=== PATIENT | female | born 1970 | race African-American/Black ===

== ENCOUNTER → 2016-08-16 | Outpatient (CLI) | payer OTHER ==
[~2016-08-16] VITALS: Ht 154.9 cm; Wt 86.2 kg
[~2016-08-16] MED LIST: B12INJ SUBQ; CALCIUM + D SO1 EACH PO; DEXAMETHAS IV; HYDROCODON-ACE1 EAC8 PO; LEXAPRO20 MG PO; MEDROL DOSPAK21 TAB PO; METOPROLOL TART25 MG PO; MULTIVITAMINS1 EAC7 PO; NEURONTIN 400400 M1 PO; NORCO 5-325 TA1 EACH PO; OMEPRAZOLE 20 M20 MG PO; OXYCODONE HCL 55 MG PO; PREDNISONE50 MG PO; PROTONIX40 M2 PO; RANITIDINE 150150 MG PO; TOPAMAX 25 MG T25 M1 PO; VENOFER100 MG/51 IV; WELLBUTRIN SR150 M1 PO; ZANTAC 150MG T150 MG PO; ZOFRAN ODT4 MG PO
--- NOTE | ~2016-08-16 | HPC ---
[facility] [place] [address] PAIN MANAGEMENT CONSULTATION Name: SHANON TURNER Room #: REG ESTHER Francesca.#: [id number] Admission: 08/16/16 Attend Phys: Willy Whatley MD Discharge: Date of : 72 Report #: [id number] THIS REPORT FOR: //name// CC: SARAH Whatley DATE OF SERVICE: 08/16/2016 PRIMARY CARE PHYSICIAN: Sarah Whatley M.D. CHIEF COMPLAINT: Pain in the right hip, low back and right leg. HISTORY OF PRESENT ILLNESS: The patient is a 46-year-old female who has been referred to the pain clinic for evaluation and treatment. The patient states that she has had some problems with her back and leg for a number of years. She has undergone epidural steroid injections. She is having some problems since her recently stroke in June. She states that she had a TIA. She states that there was a clot, but she is not sure where it was from. She states that it was not from her heart as she standard it but may have come from her neck. She continues to have some difficulty with her right side. She has difficulty with speech and stutters somewhat. She has been undergoing rehab and things have been going reasonably well at this juncture. She would like to transfer her care to [facility] because of its convenience. It is closer to where she lives. Her problems have been present since about 2012. Pain, which she has been experiencing is aching, constant and radiates down into her leg. She notes that the pain is worse with prolonged standing. She notes the pain improves when she is lying down and is sitting up. She describes it as continuous, steady, constant, cramping, aching and rates it as a 7/7. PAST MEDICAL HISTORY: DVT, peptic ulcer disease, anemia secondary to B12 deficiency, headaches, depression, anxiety and history of ulcers. ALLERGIES: No known drug allergies. CURRENT MEDICATIONS: Vitamin B12, iron infusions, prednisone, Lexapro 20 mg daily, ranitidine 150 mg daily, omeprazole 20 mg, Wellbutrin 150 mg, OxyIR 5 mg b.i.d. as needed, calcium pills, multivitamins and vitamin B12 1000 mcg subcutaneously monthly. PAST SURGICAL HISTORY: She has had a Shlomo-en-Y gastric bypass and cholecystectomy. SOCIAL HISTORY: She is retired from the [employer], has not worked since June 2013. [address] [address] PAIN MANAGEMENT CONSULTATION Name: SHANON TURNER Room #: REG CLI Francesca.#: [id number] Admission: 08/16/16 Attend Phys: Willy Whatley MD Discharge: Date of : 72 Report #: [id number] REVIEW OF SYSTEMS: Fourteen-point review of systems questionnaire indicates weight change. The patient states she will also over 100 pounds after her initial gastric bypass She has gained some weight and is following up with her surgeon to continue to evaluate her gastrointestinal problems. Wears glasses. Peptic ulcer, duodenal problems in the past. Headaches, fatigue, lightheadedness, dizziness, numbness and tingling sensation with some weakness on the right side in the lower extremity. Notes pain and discomfort into the groin area and outer portion of her right hip, status post transient ischemic attack with some neurological deficits. Continues to stutter status post stroke. LABORATORY DATA: L-spine dated 2013 reveals: 1. Normal lumbar alignment. The vertebral body heights are maintained. There is a normal marrow signal. The conus is normal in position and appearance at the L2-L3 level. 2. Degenerative disk disease with loss of disk space height at L5/L4. 3. Thin area of increased signal intensity at the left lateral aspect of the disk of L5-S1 consistent with a small annular tear. 4. Mild encroachment on the neural foramen. Impression, mild degenerative disk disease at L4-L5 with mild left neural foraminal stenosis. PHYSICAL EXAMINATION: VITAL SIGNS: Blood pressure 125/83, pulse 92, respiratory rate 18 and room air saturation 99%. MUSCULOSKELETAL: The patient has pain and discomfort involving her right leg. She complains of pain and discomfort in the left lateral aspect of her leg at the area of the greater trochanter. She also has pain that radiates from her hip into the right groin area. She walks with an antalgic gait. She rates her pain as a 7/10. Notes increased pain with standing and with ambulation. IMPRESSION: 1. Lumbar radicular pain, possibly right hip pathology. 2. Chronic history of low back pain treated with epidural steroid injections in the past. 3. Depression. 4. History of gastrointestinal problems, has undergone a Shlomo-en-Y and found to have some ulcers in the past. 5. 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 RECOMMENDATIONS: We discussed treatment options with the patient. At this juncture, she would like to follow up with her pain physician at [facility]. She states she underwent an MRI of her back. She is going to follow up with him and note the results. She states that she has medication for this [facility] [address] [place] [address] PAIN MANAGEMENT CONSULTATION Name: SHANON TURNER Room #: REG CLShira Ma.#: [id number] Admission: 08/16/16 Attend Phys: Willy Whatley MD Discharge: Date of : 72 Report #: [id number] month. She will follow up in the pain clinic in the next month. We would like to thank you for letting us participate in her care. We hope she continues to improve. <ELECTRONICALLY SIGNED> By: Willy Whatley MD 08/27/16 1018 [id number] Willy Whatley MD /nt
[2016-08-16 13:06] VITALS: BP 125/83
== END | disposition home or self-care (01) ==
LOC: PAIN 07:03
DX: M51.36 Other intervertebral disc degeneration, lumbar region (principal); M48.06 Spinal stenosis, lumbar region; F32.9 Major depressive disorder, single episode, unspecified; G45.8 Other transient cerebral ischemic attacks and related syndromes; I82.409 Acute embolism and thrombosis of unspecified deep veins of unspecified lower extremity; K27.9 Peptic ulcer, site unspecified, unspecified as acute or chronic, without hemorrhage or perforation; D64.89 Other specified anemias; F41.9 Anxiety disorder, unspecified; Z90.49 Acquired absence of other specified parts of digestive tract; Z87.891 Personal history of nicotine dependence

== ENCOUNTER → 2016-10-09 | Outpatient (CLI) | payer OTHER ==
[~2016-10-09] VITALS: Ht 154.9 cm; Wt 93.9 kg
--- NOTE | ~2016-10-09 | HPC ---
[facility] [place] [address] PAIN MANAGEMENT CONSULTATION Name: SHANON TURNER Room #: REG ESTHER Francesca.#: [id number] Admission: 10/09/16 Attend Phys: Willy Whatley MD Discharge: Date of : 72 Report #: [id number] THIS REPORT FOR: //name// CC: JOSSY Whatley DATE OF SERVICE: 10/09/2016 FOLLOWUP COMPLAINT: Here for medication renewal and the pain medicine is helping. FOLLOWUP HISTORY: The patient is a 46-year-old female who has been followed in the pain clinic because of pain and discomfort in the lumbar area. She has pain involving the low back after a fall in the tub. She is unable to take nonsteroidal anti-inflammatory medications because of Shlomo-en-Y surgery and a history of ulcers. She also has stuttering of her speech. She has had this since the stroke. She feels that things are improving at this juncture. Overall, she feels that her situation is improving. She would like to continue with the medications. PHYSICAL EXAMINATION: Blood pressure 146/97, pulse 83, respiratory rate 16, room air saturation 98%. Height 5 feet 1 inch, weight 94 kilograms, BMI is 39.10. She continues to have some stuttering of her speech. This has improved since we saw her last. She does have some continued weakness on her right side in the arm as well as in the right leg. IMPRESSION: 1. Lumbar pain status post fall from bathtub. 2. Depression. 3. Gastroesophageal problems and inability to take nonsteroidal anti-inflammatory medications because of easy Shlomo-en-Y surgery with history of ulcers. 4. Transient ischemic attack with improvement in stuttering. RECOMMENDATION: We discussed treatment options with the patient. We will continue with her hydrocodone medication. The script has been written for this medication. She will call us if she has any problems with her medications. We would like to thank you for letting us participate in her care. We hope she continues to improve. By: [id number] Willy Whatley MD /nt
[2016-10-09 10:44] VITALS: BP 146/97
== END ==
LOC: PAIN 07:04
DX: M54.5 Low back pain (principal); M25.561 Pain in right knee; F32.9 Major depressive disorder, single episode, unspecified; I10 Essential (primary) hypertension; Z87.891 Personal history of nicotine dependence; Z86.73 Personal history of transient ischemic attack (TIA), and cerebral infarction without residual deficits; Z98.84 Bariatric surgery status

== ENCOUNTER → 2016-11-06 | Outpatient (CLI) | payer OTHER ==
[~2016-11-06] VITALS: Ht 154.9 cm; Wt 95.7 kg
--- NOTE | ~2016-11-06 | HPC ---
[facility] [address] [place] [address] PAIN MANAGEMENT CONSULTATION Name: SHANON TURNER Room #: REG ESTHER Ma.#: [id number] Admission: 11/06/16 Attend Phys: Willy Whatley MD Discharge: Date of : 72 Report #: [id number] THIS REPORT FOR: //name// CC: JOSSY Whatley DATE OF SERVICE: 11/06/2016 FOLLOWUP COMPLAINT: Here for medications and things are getting a little better slowly. FOLLOWUP HISTORY: The patient is a 46-year-old female who has been seen in the pain clinic because of lumbar pain and discomfort in the low back and right leg. As you recall, the patient suffered a stroke a few months ago. This was June 2016. Overall, she feels that things were slowly turning around. She is noting a slow improvement in her speech. She is noticing a slow improvement in her right eye, lateral field. PHYSICAL EXAMINATION: Blood pressure is 144/91, pulse 81, respiratory rate 20, room air saturations 100%. She continues to note some weakness in her right side. She noticed some improvement in her right lateral visual field. IMPRESSION: 1. Status post cerebrovascular incident in June 2016. 2. Lumbar pain status post fall in the bed. The patient is now wearing a bicycle type helmet when in the bathroom. We discussed this being helpful in the event that she were to slip, fall and have another accident. She felt that was a good idea and continues to use it. 3. Depression, stable. 4. Gastroesophageal reflux and inability to take nonsteroidal anti-inflammatory medications secondary to a Shlomo-en-Y surgery in the past and history of ulcers. 5. Transient ischemic attack/stuttering since the cerebrovascular accident. RECOMMENDATIONS: We will continue with her current medical regimen of OxyIR 5 mg 1 p.o. b.i.d. She will call us if she has any problems with her medications. We would like to thank you for letting us participate in her care. We hope she continues to improve. By: [id number] Willy Whatley MD /nt
[2016-11-06 10:26] VITALS: BP 144/91
== END ==
LOC: PAIN 06:54
DX: M54.16 Radiculopathy, lumbar region (principal); K21.9 Gastro-esophageal reflux disease without esophagitis; Z86.73 Personal history of transient ischemic attack (TIA), and cerebral infarction without residual deficits; F32.9 Major depressive disorder, single episode, unspecified; I10 Essential (primary) hypertension; Z87.891 Personal history of nicotine dependence

== ENCOUNTER → 2016-12-04 | Outpatient (CLI) | payer OTHER ==
[~2016-12-04] VITALS: Ht 154.9 cm; Wt 96.2 kg
[~2016-12-04] MED LIST changes: +FLEXERIL PO
[2016-12-04 10:32] VITALS: BP 137/100
== END ==
LOC: PAIN 07:09
DX: G89.29 Other chronic pain (principal); M79.604 Pain in right leg; M54.5 Low back pain; Z86.73 Personal history of transient ischemic attack (TIA), and cerebral infarction without residual deficits; Z87.891 Personal history of nicotine dependence

== ENCOUNTER → 2017-01-01 | Outpatient (CLI) | payer OTHER ==
[~2017-01-01] VITALS: Ht 154.9 cm; Wt 99.3 kg
--- NOTE | ~2017-01-01 | HPC ---
[facility] [place] [address] PAIN MANAGEMENT CONSULTATION Name: SHANON TURNER Room #: REG ESTHER UreñaJenniferAndrey.#: [id number] Admission: 01/01/17 Attend Phys: Willy Whatley MD Discharge: Date of : 72 Report #: [id number] THIS REPORT FOR: //name// CC: JOSSY Whatley DATE OF SERVICE: 01/01/2017 FOLLOWUP COMPLAINT: Here for medications. FOLLOWUP HISTORY: The patient is a 46-year-old female who has been followed in the pain clinic. As you recall, she continues to have back pain and pain involving her right leg. She suffered a stroke a number of months ago. This was in 06/2016. She feels that things have continued to improve. Her speech is slowly improving as well. She has returned today for renewal of her hydrocodone. She finds that this medication is efficacious and she is able to engage in activities with less discomfort. She feels that the Flexeril is beneficial. She feels that 10 mg b.i.d. is somewhat helpful, but not as helpful as she would like. She was wondering if we could increase her medication. PHYSICAL EXAMINATION: The patient is alert. No evidence of oversedation. Her speech appears to be less problematic. She has less stuttering today as compared to in the past. IMPRESSION: 1. Status post cerebrovascular accident in 06/2016 with stuttering. 2. Lumbar pain status post fall. As you recall, she fell in the bathroom about a month ago. She was wearing a helmet. She has not had any falls since we saw her last. 3. Depression/stable. 4. Gastroesophageal reflux and inability to take nonsteroidal anti-inflammatory medication secondary to Shlomo-en-Y surgery in the past and history of ulcers. 5. Transichemic attack with stuttering, improving after the cerebrovascular accident. RECOMMENDATIONS: We will continue with her current medication of OxyIR 5 mg 1 p.o. b.i.d. The patient will increase her Flexeril from 10 mg b.i.d. to 10 mg t.i.d. She will call us if she has any problems with her medications. We would like to thank you for letting us participate in her care. We hope she continues to improve. <ELECTRONICALLY SIGNED> By: Willy Whatley MD 01/02/17 0820 [id number] [id number] Willy Whatley MD /nt
[2017-01-01 09:55] VITALS: BP 140/104
== END | disposition home or self-care (01) ==
LOC: PAIN 06:45
DX: M54.16 Radiculopathy, lumbar region (principal); F32.9 Major depressive disorder, single episode, unspecified; K21.9 Gastro-esophageal reflux disease without esophagitis; G45.9 Transient cerebral ischemic attack, unspecified; Z87.891 Personal history of nicotine dependence

== ENCOUNTER → 2017-01-29 | Outpatient (CLI) | payer OTHER ==
[~2017-01-29] VITALS: Ht 154.9 cm; Wt 97.2 kg
[2017-01-29 10:38] VITALS: BP 145/95
== END | disposition home or self-care (01) ==
LOC: PAIN 07:24
DX: M54.16 Radiculopathy, lumbar region (principal); F32.9 Major depressive disorder, single episode, unspecified; K21.9 Gastro-esophageal reflux disease without esophagitis; Z86.73 Personal history of transient ischemic attack (TIA), and cerebral infarction without residual deficits; Z87.891 Personal history of nicotine dependence

== ENCOUNTER → 2017-03-05 | Outpatient (CLI) | payer OTHER ==
[~2017-03-05] VITALS: Ht 154.9 cm; Wt 98.4 kg
--- NOTE | ~2017-03-05 | HPC ---
[facility] [place] [address] PAIN MANAGEMENT CONSULTATION Name: SHANON TURNER Room #: REG ESTHER Francesca.#: [id number] Admission: 03/05/17 Attend Phys: Willy Whatley MD Discharge: Date of : 72 Report #: [id number] THIS REPORT FOR: //name// CC: JOSSY Whatley DATE OF SERVICE: 03/05/2017 FOLLOWUP COMPLAINT: "Things are going reasonably well, I see my oncologist today." FOLLOWUP HISTORY: The patient is a 46-year-old female who has been seen in the pain clinic because of pain involving the right leg. As you recall, she suffered a stroke a number of months ago. She continues to improve. She also has a history of anemia. She is being seen by her oncologist for workup. She feels that her medications are working reasonably well and would like to continue them. She is having no problems with medications. PHYSICAL EXAMINATION: The patient is alert. Does not appear oversedated. Her speech pattern appears to be improving. Less stuttering is noted today. IMPRESSION: 1. Status post cerebrovascular accident in June 2016 with stuttering-improving. 2. Lumbar pain, status post fall in the bathroom. 3. Depression stable. 4. Gastroesophageal reflux with the inability to take nonsteroidal anti-inflammatory medications secondary to history of ulcers. 5. Transient ischemic attack, none since June 2016. RECOMMENDATIONS: We will continue with her current OxyIR 1 p.o. b.i.d. 5 mg tablet and Flexeril 10 mg t.i.d. We would like to thank you for letting us participate in her care. We hope she continues to improve. By: [id number] Willy Whatley MD /nt
[2017-03-05 10:11] VITALS: BP 136/91
== END ==
LOC: PAIN 07:14
DX: K21.9 Gastro-esophageal reflux disease without esophagitis (principal); G45.9 Transient cerebral ischemic attack, unspecified; M54.5 Low back pain

== ENCOUNTER → 2017-04-02 | Outpatient (CLI) | payer OTHER ==
[~2017-04-02] VITALS: Ht 162.6 cm; Wt 97.5 kg
--- NOTE | ~2017-04-02 | HPC ---
[facility] [address] [place] [address] PAIN MANAGEMENT CONSULTATION Name: SHANON TURNER Room #: REG ESTHER UreñaJenniferAndrey.#: [id number] Admission: 04/02/17 Attend Phys: Willy Whatley MD Discharge: Date of : 72 Report #: [id number] THIS REPORT FOR: //name// CC: JOSSY Whatley DATE OF SERVICE: 04/02/2017 FOLLOWUP COMPLAINT: Things are slowly improving. FOLLOWUP HISTORY: The patient is a 46-year-old female who has been seen in the pain clinic because of pain in her low back as well as right leg pain and knee pain. As you recall, she suffered a stroke. She is still having some difficulty with speech. She notes starting at this juncture, it was not present prior to the sterile. She continues to follow up with her oncologist. She would like to continue with her medications. She feels that they are efficacious and allow her to engage in activities of daily living, she would have difficulty without their use. PHYSICAL EXAMINATION: Blood pressure is 136/92, pulse 114, respiratory rate 16, room air saturation 98, height 5 feet 4 inches, weight 215 pounds, BMI is 36. The patient has pain and discomfort in the low back area. IMPRESSION: 1. Depression - stable. 2. Gastroesophageal reflux with inability to take nonsteroidal anti-inflammatory medication secondary to ulcer history. 3. Transient ischemic attack, 06/2016 - improving. RECOMMENDATIONS: We will continue with her current use of OxyIR p.o. b.i.d. 5 mg tablet, Flexeril 10 mg p.o. t.i.d. The patient will call us if she has any problems with her medications. We would like to thank you for letting us participate in her care. She will use Cyclobenzaprine 10 mg 1 p.o. t.i.d. as well. By: [id number] Willy Whatley MD /BLAINE
[2017-04-02 08:29] VITALS: BP 136/92
== END | disposition home or self-care (01) ==
LOC: PAIN 06:54
DX: M54.5 Low back pain (principal); M25.561 Pain in right knee; M79.604 Pain in right leg; Z68.36 Body mass index [BMI] 36.0-36.9, adult; F32.9 Major depressive disorder, single episode, unspecified; K21.9 Gastro-esophageal reflux disease without esophagitis; Z86.73 Personal history of transient ischemic attack (TIA), and cerebral infarction without residual deficits; Z87.891 Personal history of nicotine dependence

== ENCOUNTER → 2017-08-20 | Outpatient (CLI) | payer OTHER ==
[~2017-08-20] VITALS: Ht 154.9 cm; Wt 100.2 kg
[~2017-08-20] MED LIST changes: +AMLODIPINE BESYL5 M1 PO; +CARVEDILOL12.5 MG PO; +CLONAZEPAM 0.50.5 M1 PO; +CYCLOBENZAPRINE10 MG PO; +DUONEB 2.5-0.5 M3 ML INH; +NEBULIZER MISCELL; +PROTONIX40 M1 PO
--- NOTE | ~2017-08-20 | HPC ---
[facility] [place] [address] PAIN MANAGEMENT CONSULTATION Name: SHANON TURNER MISAEL Room #: REG Shira M.Andrey.#: [id number] Admission: 08/20/17 Attend Phys: Willy Whatley MD Discharge: Date of : 72 Report #: [id number] THIS REPORT FOR: //name// CC: JOSSY Whatley DATE OF SERVICE: 08/20/2017 FOLLOWUP COMPLAINT: "Here for medications. I have noted more pain because of the cold weather." FOLLOWUP HISTORY: The patient is a 47-year-old female who has been followed in the pain clinic. As you recall, she suffers from symptoms of stroke. She had transient ischemic attack. She continues to work to improve her speech. As you recall, she has some difficulty with stuttering. She has noticed that this problem has somewhat waxed and waned. She has also continued to follow up with her doctor secondary to her pernicious anemia. She has been told that she has some problems with her hip. She has noticed increased pain and discomfort and is being seen in the sports medicine area for this problem. She feels that her use of oxycodone and cyclobenzaprine are important. She is aware of the problems with opioid medications. She has watched the news and knows that opioid medications can cause problems with addiction as well as tolerance. She would like to have her medications renewed. She is rating her pain as a 7-8 at this juncture. The weather has been quite cold and down the single digits. She has noted that has made her pain somewhat more problematic at this juncture. It involves her left hip. She also has some right leg pain and low back discomfort as well. Standing, cold, weather stairs, driving, and sitting can exacerbate her discomfort. Notes that her pain feels more controlled when she takes her medications as well as when she is relaxing. She keeps her medications in a controlled environment. ALLERGIES: CODEINE AND IRON HAVE BEEN PROBLEMATIC IN THE PAST. CURRENT MEDICATIONS REVIEW: Indicates OxyIR 5 mg 1 p.o. b.i.d., Flexeril 10 mg t.i.d., Coreg 12.5 mg daily, gabapentin 400 mg t.i.d., Lexapro 20 mg total of 40 mg daily, omeprazole 20 mg b.i.d., Wellbutrin 150 mg daily, multivitamin, and vitamin B12. PHYSICAL EXAMINATION: VITAL SIGNS: Height 5 feet 1 inch, weight 221 pounds, BMI is 41. Blood pressure 128/80, pulse 99, respiratory rate 20, room air saturation 98%. GENERAL: The patient is a well-developed female slightly obese with no new evidence of trauma. Appearance, appears appropriate than stated age. Orientation: The patient is alert and oriented x 3. Affect appears appropriate. [address] [address] PAIN MANAGEMENT CONSULTATION Name: SHANON TURNER MISAEL Room #: REG [facility].#: [id number] Admission: 08/20/17 Attend Phys: Willy Whatley MD Discharge: Date of : 72 Report #: [id number] HEENT: Speech: The patient has a little slowness of speech and some slight stuttering on occasion. Head is atraumatic. Extraocular eye muscles intact. Hearing is good and within normal limits. Nasal area without drainage. Buccal membrane moist. NECK: Without adenopathy or bruits. LUNGS: Clear to auscultation. HEART: Regular rate. ABDOMEN: Soft, nontender muscles. MUSCULOSKELETAL: Appears with normal alignment without scoliosis, kyphosis or lordosis. The patient complains of pain and discomfort involving the right leg, right hip, low back, and left hip. She noted increased discomfort with internal rotation, external rotation, and movement of her right hip through its range of motion. PAIN CLINIC ASSESSMENT: 1. History of osteoarthritis involving the right hip. 2. Pain intensity 78. 3. Fall risk. The patient does not need assistance with walking. She has not fallen in the last 3 months. 4. The patient has not on blood thinners. 5. History of hypertension. The patient is being treated for hypertension. 6. Opioid therapy greater than 6 weeks. The patient has a signed contract. 7. Risk assessment tool. 8. Functional assessment tool. 9. Drug use: The patient does not use drugs. The patient does not smoke tobacco. She does not drink alcoholic beverages. IMPRESSION: 1. Depression. 2. Status post cerebrovascular accident with transient ischemic attack. 3. Gastroesophageal reflux. 4. Chronic pernicious anemia. 5. Right hip pain. RECOMMENDATIONS: We discussed treatment options with the patient. At this juncture, we will continue with her current medical regimen of Flexeril and oxycodone. The patient will continue with her medications. She will call us if she has any problems with her medications. We have prescribed medication for the next 2 months. She will call us if she has any problems with her medications. Hopefully, she will continue to improve and note improvements in her speech. <ELECTRONICALLY SIGNED> By: Willy Whatley MD 08/27/17 1007 [id number] Willy Whatley MD /PMT
[2017-08-20 09:11] VITALS: BP 128/80
== END ==
LOC: PAIN 06:42
DX: D51.0 Vitamin B12 deficiency anemia due to intrinsic factor deficiency (principal); K21.9 Gastro-esophageal reflux disease without esophagitis; M25.551 Pain in right hip; F32.9 Major depressive disorder, single episode, unspecified; Z86.73 Personal history of transient ischemic attack (TIA), and cerebral infarction without residual deficits

== ENCOUNTER → 2017-09-17 | Outpatient (CLI) | payer OTHER ==
[~2017-09-17] VITALS: Ht 154.9 cm; Wt 97.1 kg
--- NOTE | ~2017-09-17 | HPC ---
[facility] [address] [address] PAIN MANAGEMENT CONSULTATION Name: SHANON TURNER Room #: REG Shira MFranco.#: [id number] Admission: 09/17/17 Attend Phys: Willy Whatley MD Discharge: Date of : 72 Report #: [id number] THIS REPORT FOR: //name// CC: JOSSY Bond MD DATE OF SERVICE: 09/17/2017 FOLLOWUP COMPLAINT: Here for medications and things are going pretty well. FOLLOWUP HISTORY: The patient is a 47-year-old female who has been followed in the pain clinic because of pain and discomfort in her lower back. She has had some surgery on her left hip. She also has a history of stroke. She had a transient ischemic attack. At this point, she continues to work on her speech. She feels that reading to her grandchildren has been helpful in improving her speech. She finds that she is stuttering less. She continues to follow with her doctor, Dr. Bond, regarding her pernicious anemia. She has had surgery on her left hip. She still has some soreness and discomfort. She states that this area seems to be healing well without any real complications. Notes that still has some pain, which is problematic with standing, cold weather exacerbates her discomfort as well as driving, prolonged sitting, and climbing stairs. She does have some pain in the right leg and the right hip, and low back and in the left hip. She feels that her medications continued to be helpful. She keeps her medications in a confined area at home given that she watches her grandchildren who are young. She would like to continue with her current medical regimen. ALLERGIES: CODEINE AND IRON HAVE BEEN PROBLEMATIC IN THE PAST. REVIEW OF MEDICATIONS: Indicate continued use of OxyIR 5 mg 1 p.o. b.i.d., Flexeril 10 mg t.i.d., Coreg 12.5 mg daily, gabapentin 400 mg t.i.d., Lexapro 20 mg added for a total of 40 mg daily, omeprazole 20 mg b.i.d., Wellbutrin 150 mg daily, multivitamins, and vitamin B12. PHYSICAL EXAMINATION: GENERAL: The patient is a well-developed black female. Appears her stated age. Orientation: The patient is alert and oriented x 3. Affect: The patient's affect appears appropriate. Her speech has continued to improve. There is less stuttering, it is noticeable to me as compared to her last visit. HEENT: Normocephalic, atraumatic with extraocular eye muscles intact. Normal hearing. No nasal complaints. Moist buccal membranes. NECK: Without adenopathy. CHEST: Clear to auscultation. HEART: Regular rate. [facility] [address] [place] [address] PAIN MANAGEMENT CONSULTATION Name: SHANON TURNER MISAEL Room #: REG ESTHER Salas#: [id number] Admission: 09/17/17 Attend Phys: Willy Whatley MD Discharge: Date of : 72 Report #: [id number] ABDOMEN: Nontender. MUSCULOSKELETAL: The patient has generally in good normal alignment without significant scoliosis, kyphosis, or lordosis. Does have some pain and discomfort in the left hip area from her recent surgery. PAIN CLINIC ASSESSMENT: 1. History of osteoarthritis involving her hips, not being treated for rheumatoid arthritis. 2. Height 5 feet 1 inch, weight 214 pounds, BMI is 40. 3. Vital signs: Blood pressure 145/81, pulse 104, respiratory rate 16, room air saturation is 100. 4. Pain intensity 01/27. 5. Fall risk. The patient has fallen in the last 3 months. There was no injury during the fall. She has been more careful. 6. The patient is not on blood thinners 7. History of hypertension. The patient is being treated for hypertension. 8. Opioid therapy and with contract. The patient has signed a contracted to get medications only from the pain clinic. 9. Risk assessment tool. 10. Functional assessment tools. 11. Recreational drug use. The patient denies tobacco use: The patient is a former smoker and does not smoke at this juncture. 12. Alcohol. The patient does drink alcoholic beverages on occasion. IMPRESSION: 1. Status post cerebrovascular accident with transient ischemic attack. 2. Depression. 3. Gastroesophageal reflux. 4. Chronic pernicious anemia. 5. Right hip pain status post surgery on the left. RECOMMENDATIONS: We discussed treatment options with the patient. At this juncture, she feels that since she has had surgery her hip continues to be painful. She finds that 5 mg of OxyIR continues to be helpful. She also finds that the Flexeril medication is helpful with the muscle spasms. She would like to continue with her medications. She is happier at this juncture, secondary to improving speech pattern. She will continue to follow up with her Dr. Bond. She will call us if she has any problem with her medications. Hopefully, she will continue to improve without complication. She will call us if she has any concerns. <ELECTRONICALLY SIGNED> By: Willy Whatley MD 10/01/17 1434 [id number] [id number] Willy Whatley MD /PMT
[2017-09-17 09:21] VITALS: BP 145/81
== END ==
LOC: PAIN 06:55
DX: F32.9 Major depressive disorder, single episode, unspecified (principal); K21.9 Gastro-esophageal reflux disease without esophagitis; M25.551 Pain in right hip; Z86.73 Personal history of transient ischemic attack (TIA), and cerebral infarction without residual deficits; Z96.641 Presence of right artificial hip joint; D51.0 Vitamin B12 deficiency anemia due to intrinsic factor deficiency; Z88.5 Allergy status to narcotic agent; Z88.8 Allergy status to other drugs, medicaments and biological substances

== ENCOUNTER 2017-12-22 23:59 | Inpatient (IN) | payer OTHER ==
[~2017-12-22] VITALS: Ht 154.9 cm; Wt 104.3 kg
--- NOTE | ~2017-12-22 | 2DMMODE ---
[facility] [address] [place] [address] 2 D/M-MODE ECHOCARDIOGRAM Name: SHANON TURNER [facility] Room #: 352-P ADM IN M.R.#: [id number] Admission: 12/23/17 Attend Phys: Ezequiel Dillard, Discharge: Date of : 72 Date of Service: 12/23/17 1327 Report #: [id number] THIS REPORT FOR: //name// APPROVED REPORT Study performed: 12/23/2017 10:22:02 EXAM: Comprehensive 2D, Doppler, and color-flow Echocardiogram Patient Location: Echo lab Room #: 352 Status: routine BSA: 2.00 HR: 81 bpm BP: 152/96 mmHg Rhythm: NSR Other Information Study Quality: Good Indications Atypical chest pain, SOB, tachycardia. Hx: CVA hypertension 2D Dimensions RVDd: 31.55 mm LVEF(%): 49.38 (>50%) IVSd: 12.00 (7-11mm) LVOT Diam: 22.34 (18-24mm) LVDd: 42.29 mm PWd: 12.00 (7-11mm) Ascending Ao: 29.95 (22-36mm) LVDs: 31.83 (25-40mm) Aortic Root: 28.47 mm Diaz's LVEF: 49.38 % Volumes Left Atrial Volume (Systole) Single Plane 4CH: 41.98 mL Single Plane 2CH: 83.19 mL LA ESV Index: 32.00 mL/m2 Aortic Valve AoV Peak Vern.: 1.40 m/s AO Peak Gr.: 7.89 mmHg LVOT Max P.20 mmHg LVOT Max V: 0.89 m/s JOSIE Vmax: 2.49 cm2 Mitral Valve E/A Ratio: 0.0 MV E Max Vern.: 0.90 m/s [facility] [place] [address] 2 D/M-MODE ECHOCARDIOGRAM Name: JOHNNYSHANON [facility] Room #: 352-P [facility] IN ..#: [id number] Admission: 12/23/17 Attend Phys: Ezequiel Dillard, Discharge: Date of : 72 Date of Service: 12/23/17 1327 Report #: [id number] A Vern.: 0.00 m/s IVRT: 115.34 ms Pulmonary Valve PV Peak Vern.: 1.02 m/s PV Peak Gr.: 4.13 mmHg Pulmonary Vein P Vein S: 0.75 m/s P Vein D: 0.44 m/s P Vein S/D Ratio: 1.70 Tricuspid Valve RAP Estimate: 5.00 mmHg Left Ventricle The left ventricle is normal size. There is normal LV segmental wall motion. Mild concentric left ventricular hypertrophy. Left ventricular systolic function is normal. LVEF is 55-60%. Right Ventricle The right ventricle is normal size. The right ventricular systolic function is normal. Atria The left atrium size is normal. The right atrium size is normal. Aortic Valve The aortic valve is normal in structure. No aortic regurgitation is present. There is no aortic valvular stenosis. Mitral Valve The mitral valve is normal in structure. Trace mitral regurgitation. No evidence of mitral valve stenosis. Tricuspid Valve The tricuspid valve is normal in structure. There is no tricuspid valve regurgitation noted. Unable to assess PA pressure. Pulmonic Valve The pulmonary valve is normal in structure. Trace pulmonic regurgitation. Great Vessels The aortic root is normal in size. The ascending aorta is normal in size. IVC is normal in size and collapses >50% with [facility] [address] [place] [address] 2 D/M-MODE ECHOCARDIOGRAM Name: SHANON TURNER [facility] Room #: 352-P [facility] IN M.R.#: [id number] Admission: 12/23/17 Attend Phys: Ezequiel Dillard, Discharge: Date of : 72 Date of Service: 12/23/17 1327 Report #: [id number] inspiration. Pericardium There is no pericardial effusion. <Conclusion> The left ventricle is normal size. Left ventricular systolic function is normal. LVEF is 55-60%. The right ventricle is normal size. The left atrium size is normal. The aortic valve is normal in structure. Trace mitral regurgitation. There is no tricuspid valve regurgitation noted. Unable to assess PA pressure. The aortic root is normal in size. There is no pericardial effusion. <ELECTRONICALLY SIGNED> By: Lorne High MD, FACC 12/23/17 1327 26 132 Lorne High MD, FACC /INF
--- NOTE | ~2017-12-22 | HC ---
[facility] [place] [address] [place] [address] CONSULTATION Name: SHANON TURNER Room #: 352-P [facility] IN M.R.#: [id number] Admission: 12/23/17 Attend Phys: Ezequiel Dillard MD Discharge: 12/25/17 Date of : 72 Report #: [id number] THIS REPORT FOR: //name// CC: JOSSY Owens MD Physician staff DATE OF SERVICE: 12/24/2017 REASON FOR CONSULTATION: Stridor. HISTORY OF PRESENT ILLNESS: The patient is a 47-year-old female complains of a 3-day history of stridor. She was at her home and complaining of shortness of breath that has come on after she passed suddenly. She coughed and felt like a little bit of mucus came up and then had a sensation of stridor. She has been stridorous intermittently since, has been admitted to the hospital, has complained of right-sided chest pain. I am asked to evaluate her stridor. PAST MEDICAL HISTORY: Relevant for previous history of stroke, previous history of pulmonary embolism and a history of gastric bypass with Shlomo-en-Y. She does have reflux and takes omeprazole 40 mg just in the morning. OTHER PAST MEDICAL HISTORY: Listed in her chart. After a previous history of stroke, she has had some history of chronic pain, has been seen in pain clinic and placed on pain medication. She says she has taken Flexeril as a muscle relaxant in the past, which was not helpful. She has since stopped it. MEDICATIONS: Listed in her chart. ALLERGIES: None. SOCIAL HISTORY: She lives alone on the ground floor of an apartment, has a family member that lives across the street. FAMILY HISTORY: Noncontributory to this problem. REVIEW OF SYSTEMS: Significant for shortness of breath and stridor. She is having no trouble swallowing. PHYSICAL EXAMINATION: GENERAL: She is a well-developed female in no apparent distress. She is stridorous with deep inspiration and when she is very quiet and breathing comfortably, she has less stridor. HEENT: Head is normocephalic. Pupils are equal, round and reactive. Nasal: No evidence of rhinorrhea. Nasal passage is widely patent. Nasopharynx shows [facility] [address] [place] [address] CONSULTATION Name: SHANON TURNER [facility] Room #: 352-P [facility] IN M.R.#: [id number] Admission: 12/23/17 Attend Phys: Ezequiel Dillard MD Discharge: 12/25/17 Date of : 72 Report #: [id number] some erythema in the posterior nasopharyngeal wall. Oral cavity: Granular ulceration seen. Hypopharynx and larynx were examined by flexible fiberoptic disposable ambu pediatric laryngoscope introduced through the right naris which is her better sided breathing. Turbinates mildly inflamed. The hypopharynx and larynx are examined. Vocal cord mobility is symmetric. Her vocal cords themselves are a little bit erythematous and anterior two-thirds are slightly edematous. There is no evidence of subglottic stenosis and vocal cord mobility and excursion are otherwise normal with the exception of the fact that she is a little bit narrow secondary to the swelling of her anterior cords. With deep inspiration, she has paradoxical vocal fold movement and the cords come together and caused her stridor to occur when she is distracted with the flexible fiberoptic laryngoscope in place and she is breathing normally. She does not have stridor. She does have post-cricoid edema, which is mild to moderate. IMPRESSION: Paradoxical vocal fold movement, likely caused by a brief episode of laryngospasm 3 days ago and a long history of reflux secondary to her Shlomo-en-Y bypass and her timing of her eating. PLAN: She should double her omeprazole to 40 mg twice daily once before breakfast in the morning and once before her last meal, an hour before her last meal in the evening. She is currently eating at 5:30 p.m. and goes to bed around 8:30 with her Shlomo-en-Y. There should be more separation between her last solid meal and lying down with a minimum of 3 hours for solids, 2 hours for pureed and 1 hour for liquids. We discussed the mechanisms of reflux and the delayed gastric emptying that she has with her Shlomo-en-Y and how this may compound factors. Muscle relaxant with an anxiolytic would be very helpful in the next few days to weeks while she is recovering from her acute episode and Klonopin 1 mg twice daily would be helpful to both help with the anxiety related to her breathing as well as a muscle relaxant. I have given her my card. She can follow up with me if she has persistent symptoms, but otherwise should respond to b.i.d. dosing of her proton pump inhibitor with improvement in her reflux timing with relation to her intake of food towards the latter portion of the day. <ELECTRONICALLY SIGNED> By: Oscar Palomino MD 12/25/17 1546 1755 [id number] Oscar Palomino MD /nt
--- NOTE | ~2017-12-22 | EKG ---
[place] [address] [facility] [address] ELECTROCARDIOGRAM REPORT Name: SHANON TURNER MISAEL Room #: 352-P [facility]#: [id number] Admission: 12/23/17 Attend Phys: Ezequiel Dillard MD Discharge: Date of : 72 Report #: [id number] THIS REPORT FOR: //name// [facility] ED Test Date: 2017-12-23 Test Time: 00:10:55 Pat Name: SHANON TURNER Department: Room: Gender: F Recreational Counselor: PREMA : 1970 Requested By: Teodoro Mari Order Number: [id number] MD: Praneeth Marie Measurements Intervals [place] Rate: 126 P: 76 NH: 138 QRS: 42 QRSD: 95 T: 7 QT: 332 QTc: 481 Interpretive Statements Sinus tachycardia Borderline repolarization abnormality Compared to ECG 08/13/2014 13:17:16 heart rate has increased Nonspecific ST and T wave abnormality is present Electronically Signed On 12-23-2017 7:49:48 CDT by Praneeth Marie [email or web address] <ELECTRONICALLY SIGNED> By: Praneeth Marie MD, [facility] 12/23/17 0749 0010 0010 Praneeth Marie MD, [facility] /EPI
[~2017-12-22 23:59] MED LIST changes: -AMLODIPINE BESYL5 M1 PO; -CLONAZEPAM 0.50.5 M1 PO; -CYCLOBENZAPRINE10 MG PO; -DUONEB 2.5-0.5 M3 ML INH; -NEBULIZER MISCELL; -PROTONIX40 M1 PO
[2017-12-23] VITALS: BP 143/102
[2017-12-23 00:34] LABS: URINE BILIRUBIN NEGATIVE (Negative); URINE BLOOD NEGATIVE (Negative); URINE CLARITY CLEAR; URINE COLOR YELLOW; URINE GLUCOSE-RANDOM* NEGATIVE (Negative); URINE KETONES NEGATIVE (Negative); URINE LEUKOCYTES-REFLEX NEGATIVE (Negative); URINE NITRITE-REFLEX NEGATIVE (Negative); URINE PROTEIN (DIPSTICK) NEGATIVE (Negative); URINE SPECIFIC GRAVITY >= 1.030 (1.005-1.035); URINE UROBILINOGEN 0.2 E.U./dl (0.2-1.0)
[2017-12-23 00:46] LABS: AMP/METHAMP POSITIVE (Negative); BARBITURATES Negative (Negative); BENZODIAZEPINES Negative (Negative); COCAINE Negative (Negative); METHADONE Negative (Negative); OPIATES POSITIVE (Negative); PCP Negative (Negative)
[2017-12-23 01:03] LABS: ABSOLUTE NEUTROPHILS 6.4 thou/uL (1.4-8.2); BASOPHILS 1.1 % (0.0-2.0); HEMATOCRIT 38.5 % (37.0-47.0); LYMPHOCYTES 30.4 % (24.0-44.0); MCH 29.6 pg (26.0-34.0); MCHC 33.8 g/dL (28.0-37.0); MCV 87.6 fL (80.0-100.0); MONOCYTES 7.6 % (1.0-8.0); PLATELET COUNT 380 thou/uL (150-400); POLYS 59.9 % (36.0-66.0); RDW 13.7 % (10.5-14.5); WBC 10.7 thou/uL (4.0-11.0)
[2017-12-23 01:10] LABS: ANION GAP 14 mmol/L (7-16); BUN 27 mg/dL (7-18); CALCIUM 9.5 mg/dL (8.5-10.1); CHLORIDE 101 mmol/L (98-107); CO2 22 mmol/L (21-32); CREATININE 0.8 mg/dL (0.6-1.0); GLUCOSE 109 mg/dL (74-106); POTASSIUM 3.9 mmol/L (3.5-5.1); SODIUM 137 mmol/L (136-145)
[2017-12-23 01:19] LABS: APTT 24.3 Seconds (24.5-32.8); LIPASE 88 U/L (73-393); PROTIME 10.7 Seconds (9.3-11.4); SGOT 39 U/L (15-37); SGPT 43 U/L (30-65); TOTAL BILIRUBIN 0.5 mg/dL (<0.1-1.0); TOTAL PROTEIN 8.1 g/dL (6.4-8.2); TROPONIN-I < 0.04 ng/mL (<0.06)
[2017-12-23 03:31] VITALS: BP 151/86
[2017-12-23 03:43] VITALS: BP 117/82
[2017-12-23 04:00] VITALS: BP 152/96
[2017-12-23 08:03] LABS: AMP/METHAMP Negative (Negative); BARBITURATES Negative (Negative); BENZODIAZEPINES Negative (Negative); COCAINE Negative (Negative); METHADONE Negative (Negative); OPIATES POSITIVE (Negative); PCP Negative (Negative)
[2017-12-23 20:00] VITALS: BP 142/100
[2017-12-24] VITALS: BP 136/76
[2017-12-24 04:10] VITALS: BP 134/87
[2017-12-24 08:33] VITALS: BP 154/97
[2017-12-24 11:37] VITALS: BP 123/70
[2017-12-24 15:21] VITALS: BP 127/92
[2017-12-24 19:13] VITALS: BP 122/80
[2017-12-25 04:10] VITALS: BP 137/69
[2017-12-25 08:00] VITALS: BP 154/102
[2017-12-25] MEDS ORDERED: AMLODIPINE BESYL5 M1 PO (11:22)
[2017-12-25] MEDS ORDERED: CLONAZEPAM 0.50.5 M1 PO (11:23)
[2017-12-25] MEDS ORDERED: PROTONIX40 M1 PO (11:23)
[2017-12-25] MEDS ORDERED: DUONEB 2.5-0.5 M3 ML INH (11:25)
[2017-12-25] MEDS ORDERED: NEBULIZER MISCELL (11:28)
[2017-12-25 11:44] VITALS: BP 137/69
[2017-12-25 12:05] VITALS: BP 127/67
== END 2017-12-25 13:58 | disposition home or self-care (01) | DRG 206 ==
LOC: ER 23:59 → 3W 12-23 02:41 → EROBS 12-23 02:41 → 3W 12-23 03:45 → ENTRNSPT 12-25 13:54 → 3W 12-25 13:58
PROVIDERS: Emergency Medicine; Nurse Practitioner Acute Care
DX: M94.0 Chondrocostal junction syndrome [Tietze] (principal); E66.2 Morbid (severe) obesity with alveolar hypoventilation; I69.951 Hemiplegia and hemiparesis following unspecified cerebrovascular disease affecting right dominant side; Z68.41 Body mass index [BMI] 40.0-44.9, adult; J38.5 Laryngeal spasm; E86.0 Dehydration; R00.0 Tachycardia, unspecified; K21.9 Gastro-esophageal reflux disease without esophagitis; Z60.2 Problems related to living alone; N39.490 Overflow incontinence; I10 Essential (primary) hypertension; G89.29 Other chronic pain; Z80.0 Family history of malignant neoplasm of digestive organs; Z88.6 Allergy status to analgesic agent; Z88.8 Allergy status to other drugs, medicaments and biological substances; Z86.711 Personal history of pulmonary embolism; Z86.718 Personal history of other venous thrombosis and embolism; Z90.49 Acquired absence of other specified parts of digestive tract; Z87.891 Personal history of nicotine dependence; Z82.49 Family history of ischemic heart disease and other diseases of the circulatory system; Z79.899 Other long term (current) drug therapy
CPT/HCPCS: 10879

== ENCOUNTER → 2018-02-04 | Outpatient (CLI) | payer OTHER ==
[~2018-02-04] VITALS: Ht 157.5 cm; Wt 93.9 kg
[~2018-02-04] MED LIST changes: +AMLODIPINE BESYL5 M1 PO; +CLONAZEPAM 0.50.5 M1 PO; +CYCLOBENZAPRINE10 MG PO; +DUONEB 2.5-0.5 M3 ML INH; +NEBULIZER MISCELL; +PROTONIX40 M1 PO
--- NOTE | ~2018-02-04 | HPC ---
[facility] [place] [address] PAIN MANAGEMENT CONSULTATION Name: SHANON TURNER Room #: REG [facility] MFranco.#: [id number] Admission: 02/04/18 Attend Phys: Gucci Aviles DO Discharge: Date of : 72 Report #: [id number] THIS REPORT FOR: //name// CC: JOSSY WHATLEY Physician staff Oneil Bond MD DATE OF SERVICE: 02/04/2018 REFERRING PHYSICIAN: Dr. Cathy Whatley. CHIEF COMPLAINT: Right lower extremity pain with paresthesias, left hip pain. HISTORY OF PRESENT ILLNESS: As you know, the patient is a 47-year-old female, followed by my partner, Dr. Sonu Whatley, for chronic right lower extremity pain secondary to a cerebrovascular accident and left hip pain due to mechanical issues of the hip. She has been stabilized on dose of oxycodone 5 mg 3 times a day p.r.n. for pain, along with Flexeril 10 mg 3 times a day for muscle spasm. She reports this is working well. She indicates pain today at level 7/10 as we had recent changes in weather and this exacerbates her left hip issues. She states her pain is chronic and aching sensation, exacerbated with standing, cold weather, stairs, driving, sitting and certain activities, improves with lying down, medications, rest, relaxation and stretching. She returns today requesting refill on medications for the next 2 months. ALLERGIES: CODEINE, IRON SUPPLEMENTATIONS. CURRENT MEDICATIONS: Pantoprazole 40 mg per day, clonazepam 0.5 mg twice a day, amlodipine 5 mg per day, ipratropium bromide 4 times a day, oxycodone 5 mg 3 times a day p.r.n., gabapentin 400 mg t.i.d., bupropion 150 mg once a day, calcium carbonate 1 tab per day, multivitamin 1 tab per day, vitamin B12 one intramuscular monthly, Flexeril 10 mg 3 times a day p.r.n. SOCIAL HISTORY: The patient denies tobacco, alcohol, IV or illicit drug use. She is unaccompanied today. IMAGING: No new imaging available. PQRS: The patient has known bilateral osteoarthritis as well as osteoarthritis of the lumbar spine and hands. She places pain score today 7/10. She is not on blood thinners, treated for hypertension. She is not a fall risk, has not had fall in the last 3 months. She has been on opioids for greater than 6 weeks. She has a low assessment for opioid abuse. Her functional assessment tool 61/70, equating to severe interference of daily activity. [address] [address] PAIN MANAGEMENT CONSULTATION Name: SHANON TURNER MISAEL Room #: REG CLShira Ma.#: [id number] Admission: 02/04/18 Attend Phys: Gucci Aviles DO Discharge: Date of : 72 Report #: [id number] PHYSICAL EXAMINATION: VITAL SIGNS: Blood pressure 154/105, pulse is 96, respiratory rate 14 and unlabored. O2 sat 98% on room air. Height 5 feet 2 inches tall, weight 207 pounds, BMI calculated 37.9. GENERAL: Well-developed, well-nourished, well-hydrated exogenously obese 47-year-old female, appearing stated age, placing current pain score 7/10. HEENT: Normocephalic, atraumatic. Pupils equal, round, reactive to light. Extraocular muscles are intact. EXTREMITIES: Show no clubbing, no cyanosis, no edema. MUSCULOSKELETAL: Gait is antalgic favoring right lower extremity over left. Strength rated on the right at 4/5-4-1/2/5, left 5/5. Pain is elicited with hip flexion as well as knee extension bilaterally. ASSESSMENT: 1. Right lower extremity pain status post cerebrovascular accident. 2. Left hip pain. 3. Osteoarthritis, bilateral hips. 4. Opioid dependency. 5. Chronic intractable pain. PLAN: 1. The patient returns in followup visit requesting a refill on medications. She feels medications are working beneficially for pain control. She indicates pain level of 7/10 as we have had a recent change in weather. She has requested refill on medications at current dosing. She is denying side effects of somnolence, decrease in mental acuity, disorientation and confusion. She wishes to continue medication as prescribed by Dr. Whatley. 2. The patient was provided a prescription of oxycodone 5 mg dose 1 tab p.o. t.i.d. I have given the patient #90, releases of today and 4 weeks from today, 2 months for the medication. 3. The patient will be provided prescription of Flexeril 10 mg dose 1 tab p.o. t.i.d. I have given the patient #90, one refill, 2 months for the medication. 4. I did provide the patient with information about spinal cord stimulator technology. I believe she would be an excellent candidate for spinal cord stimulators, so we reviewed the digital and written information today. She is interested in moving forward. She will contact our clinic. 5. We will see the patient back in followup visit in 2 months. By: 0810 0915 Gucci Aviles DO /nt
[2018-02-04 07:49] VITALS: BP 154/105
== END ==
LOC: PAIN 05:32
DX: M16.0 Bilateral primary osteoarthritis of hip (principal); G89.4 Chronic pain syndrome; M79.661 Pain in right lower leg; F11.20 Opioid dependence, uncomplicated

== ENCOUNTER → 2018-05-08 | Outpatient (CLI) | payer OTHER ==
[~2018-05-08] VITALS: Ht 154.9 cm; Wt 95.7 kg
[2018-05-08 09:29] VITALS: BP 153/91
== END ==
LOC: PAIN 06:47
DX: M25.552 Pain in left hip (principal); M25.551 Pain in right hip; M25.562 Pain in left knee; M79.604 Pain in right leg; G89.29 Other chronic pain; M54.5 Low back pain; I10 Essential (primary) hypertension; Z87.891 Personal history of nicotine dependence

== ENCOUNTER → 2018-07-01 | Outpatient (CLI) | payer OTHER ==
[~2018-07-01] VITALS: Ht 154.9 cm; Wt 97.5 kg
[~2018-07-01] MED LIST changes: +ERGOCALCIF50000 UNIT PO; +NORVASC5 MG PO; +VENTOLIN HFA 1818 GM INH
--- NOTE | ~2018-07-01 | HPC ---
[facility] [place] [address] PAIN MANAGEMENT CONSULTATION Name: SHANON TURNER MISAEL Room #: REG [facility] M..#: [id number] Admission: 07/01/18 Attend Phys: Kandice Soares Discharge: Date of : 72 Report #: [id number] THIS REPORT FOR: //name// CC: Kandice WHATLEY Physician staff DATE OF SERVICE: 07/01/2018 HISTORY OF PRESENT ILLNESS: This is a very pleasant 47-year-old female that is here for followup visit for her medication refill of her pain for her status post cardiovascular accident and ischemic attack. She has been doing quite well. Her speech has been improving and has less stuttering then she has had in the past and she continues to improve on that. She tells me that she does have some low back, bilateral leg, left hip and left knee pain, rating it as 8/10 today, worse with standing. She tells me that the medicine does make it better or relaxing and stretching lying down. She denies any constipation or daytime sleepiness. She would like a refill of her current oxycodone 5 mg tablets and states they are helping her function throughout her daily activities. ALLERGIES: IRON AND CODEINE. CURRENT MEDICATIONS: Albuterol inhaler as needed, Drisdol 50,000 units twice a week, Protonix 40 mg twice a day, OxyIR 5 mg every 8 hours, Flexeril 10 mg 3 times a day, clonazepam 0.5 mg twice a day, amlodipine 5 mg daily, carvedilol 12.5 mg twice a day, gabapentin 400 mg 3 times a day, Wellbutrin-SR 150 mg daily, calcium plus D daily, multivitamin and vitamin B12. PQRS: 1. She has a history of osteoarthritis in her hands, joints in her spine. Denies rheumatoid arthritis. 2. Height is 5 feet 1 inch, weight is 215, BMI is 40.6. 3. Vital signs: Blood pressure 144/94, pulse is 96, respirations 16, oxygen sat is 100%. 4. Pain score is 8/10. 5. Fall risk: She denies dizziness. Does not need help walking or standing. Does use a cane though and has not fallen in the last 3 months. 6. The patient denies any blood thinners. does have a history of hypertension and takes medications. 7. Opioid therapy is greater than 6 weeks, therefore, an opioid contract is on the chart. The patient's risk assessment tool is low and her functional assessment is 61/70. 8. Recreational drug use. She is not a smoker currently, but has in the past and currently uses a small amount of alcohol as socialization but not on a daily basis. [address] [address] PAIN MANAGEMENT CONSULTATION Name: JOHNNYSHANON MISAEL Room #: REG ESTHER Salas#: [id number] Admission: 07/01/18 Attend Phys: Kandice Soares Discharge: Date of : 72 Report #: [id number] We checked the prescription monitoring system and the patient is filling appropriately her oxycodone from only one pharmacy and physicians within our clinic. The patient tells me that she does safeguard her medications. I do not see a recent drug screen on her chart, so we will check that at the next visit on her. PHYSICAL EXAMINATION: GENERAL: The patient is a well-developed, well-nourished black female, appears her stated age. She is alert and orientated. Her speech has some occasional stuttering when the patient talks too fast. She is alert and orientated and her affect is appropriate. HEENT: Normocephalic, atraumatic. Extraocular eye muscles are intact. Hearing is within normal limits. Mucous membranes are moist. NECK: Without adenopathy. Had good range of motion. MUSCULOSKELETAL: With generally good alignment without scoliosis, kyphosis or lordosis. The patient has pain and discomfort in her left hip and left knee and occasionally in her right hip. She has had surgery on her knee in the past. The patient is able to move from sitting to standing without difficulty, but does walk with an antalgic gait. IMPRESSION: 1. Status post cardiovascular accident, transient ischemic attack. 2. Depression. 3. Gastroesophageal reflux. 4. Chronic pernicious anemia. 5. Right hip pain, status post surgery on the left hip. 6. Left hip pain. 7. Medical management of a complex medicine regime followed under opioid agreement. We reviewed the fact that opiate medications are being used to provide analgesia adequate to support activities of daily living, not attempting to achieve a specific pain score on the 0-10 Visual Analog Scale. The current opiate medications are providing sufficient analgesia to allow the patient to participate in activities of daily living. The patient is not exhibiting any aberrant behavior suggestive of drug diversion. The patient is not having any adverse reactions to medications. The patient is not suffering from daytime somnolence or mental acuity changes. The patient is managing opiate-induced constipation with appropriate hiwi-slf-cupifsy agents and dietary considerations. The patient was counseled on concern for caution with operating a motor vehicle while using opiate medications. A physical exam was performed and the patient's functional status was evaluated. All patients with back pain were advised against the bed rest greater than 4 days and were advised to return to normal activities. Pain score assessment was noted and the treatment plan was reviewed with the patient. All current [facility] [address] [place] [address] PAIN MANAGEMENT CONSULTATION Name: SHANON TURNER Room #: REG CL M.R.#: [id number] Admission: 07/01/18 Attend Phys: Kandice FARHEEN Soares Discharge: Date of : 72 Report #: [id number] medications, both prescribed and OTC were reviewed and reconciled on the electronic medical record. Tobacco screening was accomplished and smoking cessation was advised when indicated. BMI was noted and diet/exercise modification was recommended for all patients following outside normal parameters. I reviewed with the patient today their responsibilities to safeguard prescription medications, reviewed their responsibility to utilize medications only as prescribed by the physician. They are to seek and receive pain medications only from 1 physician group ( [facility]). They are to use 1 pharmacy and keep the clinic informed if they change pharmacies. Their responsibilities include making followup visits in a timely fashion and to avoid abrupt discontinuation of medication usage. Their responsibilities further include bringing their medications (bottles from the pharmacy with residual pills) to the visit for possible confirmation of pill counts and the patient understands it is their responsibility to submit to random drug screens to ensure both that the medications prescribed are present, and that no other controlled substances are present. All prescriptions provided today were generated electronically. RECOMMENDATIONS: We discussed treatment options with the patient today. 1. At this time, we will continue her current medication: a. OxyIR 5 mg up to 3 times a day. Scripts for today and 4 weeks were given because the patient feels that these are very beneficial for her and functioning in her daily activities. b. Clonazepam 0.5 mg 1 tablet twice a day, #60 with one additional refill. c. Flexeril 10 mg up to 3 times a day, #90 with one additional refill. 2. The patient tells me that she is concerned about her weight gain and has decided that she is going to start exercising. The patient was wondering what the best machine would be for her family to buy her for a [place]/birthday present, a treadmill or elliptical or a bike. We discussed different options with the patient and also including water aerobics. The patient tells me that she has a [employer] close by and I encouraged her to go there and try at a recumbent bike and a stationary bike to see which one she likes better. I think that the elliptical will be hard for her to maneuver and therefore she would not use it and have good success. The patient will also look into water aerobics to try and start exercising to decrease some weight that she has gained since her stroke. 3. The patient will return to the clinic in 2 months for medication refill. The patient seen in collaboration today with Dr. Charan Whatley. <ELECTRONICALLY SIGNED> By: Kandice Soares 07/02/18 0755 [id number] Kandice Soares /nt
[2018-07-01 09:06] VITALS: BP 144/94
== END ==
LOC: PAIN 08:38
DX: Z09 Encounter for follow-up examination after completed treatment for conditions other than malignant neoplasm (principal); K21.9 Gastro-esophageal reflux disease without esophagitis; M25.552 Pain in left hip; D51.0 Vitamin B12 deficiency anemia due to intrinsic factor deficiency; Z98.890 Other specified postprocedural states; Z86.73 Personal history of transient ischemic attack (TIA), and cerebral infarction without residual deficits; Z79.899 Other long term (current) drug therapy; Z88.8 Allergy status to other drugs, medicaments and biological substances

== ENCOUNTER → 2018-08-31 | Outpatient (CLI) | payer OTHER ==
[~2018-08-31] VITALS: Ht 154.9 cm; Wt 100.7 kg
[~2018-08-31] MED LIST changes: +ADIPEX-P37.5 MG PO; +REGLAN 10 MG TA10 MG PO
[2018-08-31 09:34] VITALS: BP 133/95
--- NOTE | 2018-08-31 09:38 | NUR ---
Pain Clinic Assessment: 1. History of Osteoarthritis: SPINE JOINTS RIGHT HAND History of Rheumatoid Arthritis: Not Applicable 2. Height: 5 ft. 1 in. 154.9 cm. Weight: 222.0 lb. oz. 100.699 kg. Patient's BMI: 42.0 3. Vital Signs: BP: 133/95 Pulse: 94 Resp: 15 Temp: 02 Sat: 97 ECG Mon: 4. Pain Intensity: 7 5. Fall Risk: Dizziness: N Needs help standing or walking: N Fallen in the last 3 months: Y Fall risk comments: FELL 2 WEEKS AGO ON ICE. DID NOT GO TO ER OR ANY DOC 6. Patient on Blood Thinner: None 7. History of Hypertension: Y 8. Opioid Therapy greater than 6 weeks: Y Opiate Contract Signed: 12/04/16 9. Risk Assessment Tool Provided: NANNETTE 10. Functional Assessment Tool: / 11. Recreational Drug Use: Past greater than 3 mos Drug Type: Tobacco Use: Former Smoker Tobacco Type: Amount or Packs/day: How Many Years: Alcohol Use: Yes Frequency: Quant:
--- NOTE | 2018-09-01 07:11 | HPC ---
[facility] [place] [address] PAIN MANAGEMENT CONSULTATION Name: SHANON TURNER MISAEL Room #: REG ESTHER Ma.#: [id number] Admission: 08/31/18 Attend Phys: Kandice Soares Discharge: Date of : 72 Report #: [id number] THIS REPORT FOR: //name// CC: Kandice WHATLEY Physician staff DATE OF SERVICE: 08/31/2018 CHIEF COMPLAINT: Low back pain, bilateral leg pain. HISTORY OF PRESENT ILLNESS: This is a very pleasant 48-year-old female who returns to the Pain Clinic today for refill of her medications. She tells me that they are working quite well. Her pain score is a 7/10, which she tells me is average of her pain, worse with standing and cold weather and driving. The medications are very helpful as well as stretching and lying down. She tells me that she did fall a couple of weeks ago on the ice, did not require any doctor's visit and did not have to change any of her medications due to this. She tells me she has no constipation. She controls this with her diet. She is requesting medical records from the hospital. She tells me a long story about hospital visit in December here where she had a false positive for methamphetamines on her drug screen. They checked her again within 12 hours and that was negative. She is trying to get those records obtained for her pension, very concerned about how it will affect her pension since she had this false positive. She is due today for a drug screen. I believe this is why she is filling me on this and she did recently start a new medication of phentermine, which will show up on her drug screen today as well as her normal medications. She tells me she is due for refills of her oxycodone today, which have been very helpful. CURRENT ALLERGIES: IRON AND CODEINE. CURRENT MEDICATIONS: Norvasc 5 mg daily, Protonix 40 mg b.i.d., Flexeril 10 mg as needed, OxyIR 5 mg up to 3 times a day, clonazepam 0.5 mg b.i.d., albuterol inhalers, Drisdol twice a week, Coreg 12.5 mg b.i.d., gabapentin 400 mg 3 times a day, Wellbutrin 150 mg daily, calcium plus D daily, multivitamin daily, vitamin B12 subQ monthly, phentermine 37.5 mg daily and Reglan 10 mg before meals. PQRS: 1. She has osteoarthritis in her hands, joints and in her spine. She denies rheumatoid arthritis. 2. Height is 5 feet 1 inch, weight is 222, BMI is 42. 3. Vital signs 133/95, pulse is 94, respirations 15, oxygen sat is 97%. 4. Pain score is 7/10. 5. Fall risk. She denies dizziness. Does not need help walking or standing. Did fall on the ice a couple of weeks ago [place] [address] PAIN MANAGEMENT CONSULTATION Name: SHANON TURNER MISAEL Room #: ARA Salas#: [id number] Admission: 08/31/18 Attend Phys: Kandice Soares Discharge: Date of : 72 Report #: [id number] attention. 6. The patient is not on any blood thinners. She does have a history of hypertension. 7. Opioid therapy is greater than 6 weeks. Therefore, no opioid signed contract is on the chart. 8. Her risk assessment tool is low. Her functional assessment is 61/70. 9. Recreational drug use in the past. She is a former smoker also and occasionally drinks alcohol. We did check the prescription monitoring system. The patient is filling appropriately with her narcotics from Dr. Whatley and then filled recently her phentermine from her other doctor. We will obtain a urine drug screen today as we try to have yearly specimen results on the chart. PHYSICAL EXAMINATION: GENERAL: This is a well-developed, well-nourished black female, who appears her stated age. She is alert and orientated. Her speech has occasional stuttering when she is talking too fast. Otherwise, she is alert and oriented and her affect is appropriate. HEENT: Normocephalic, atraumatic. Extraocular eye muscles are intact. Hearing is within normal limits. NECK: Without adenopathy or JVD. MUSCULOSKELETAL: Good alignment without scoliosis, kyphosis, or lordosis. She has complaints of pain in her bilateral legs and her lower back today. She is able to move from sitting to standing without difficulty. Does walk with a slightly antalgic gait. IMPRESSION: 1. Status post cardiovascular accident, transient ischemic attack. 2. Depression. 3. Gastric reflux. 4. Chronic pernicious anemia related to gastric bypass. 5. Right hip pain, status post surgery of hip. 6. Medical management of complex medication regime followed under opioid agreement. We reviewed the fact that opiate medications are being used to provide analgesia adequate to support activities of daily living, not attempting to achieve a specific pain score on the 0-10 Visual Analog Scale. The current opiate medications are providing sufficient analgesia to allow the patient to participate in activities of daily living. The patient is not exhibiting any aberrant behavior suggestive of drug diversion. The patient is not having any adverse reactions to medications. The patient is not suffering from daytime somnolence or mental acuity changes. The patient is managing opiate-induced constipation with appropriate xzkl-dch-ncroozr agents and dietary considerations. The patient was counseled on concern for caution with operating a motor vehicle while using opiate medications. [facility] [address] [place] [address] PAIN MANAGEMENT CONSULTATION Name: SHANON TURNER Room #: REG [facility] M.R.#: [id number] Admission: 08/31/18 Attend Phys: Kandice Soares Discharge: Date of : 72 Report #: [id number] A physical exam was performed and the patient's functional status was evaluated. All patients with back pain were advised against the bed rest greater than 4 days and were advised to return to normal activities. Pain score assessment was noted and the treatment plan was reviewed with the patient. All current medications, both prescribed and OTC were reviewed and reconciled on the electronic medical record. Tobacco screening was accomplished and smoking cessation was advised when indicated. BMI was noted and diet/exercise modification was recommended for all patients following outside normal parameters. I reviewed with the patient today their responsibilities to safeguard prescription medications, reviewed their responsibility to utilize medications only as prescribed by the physician. They are to seek and receive pain medications only from 1 physician group ([facility]). They are to use 1 pharmacy and keep the clinic informed if they change pharmacies. Their responsibilities include making followup visits in a timely fashion and to avoid abrupt discontinuation of medication usage. Their responsibilities further include bringing their medications (bottles from the pharmacy with residual pills) to the visit for possible confirmation of pill counts and the patient understands it is their responsibility to submit to random drug screens to ensure both that the medications prescribed are present, and that no other controlled substances are present. All prescriptions provided today were generated electronically. RECOMMENDATIONS: 1. We discussed treatment options today. At this time, we will continue with her OxyIR 5 mg 3 times a day, #90 and one additional month given. Second medication is clonazepam 0.5 mg twice a day, #60 with one additional refill. 2. The patient submitted to a urine drug screen today to have one on her chart yearly. 3. The patient will be seen in followup in 2 months with appointment with Dr. Whatley. 4. The patient seen in collaboration today with Dr. Oneil Askew. <ELECTRONICALLY SIGNED> By: Kandice Soares 09/01/18 0711 [id number] Kandice Soares /nt
== END ==
LOC: PAIN 07:10
DX: M25.551 Pain in right hip (principal); M54.5 Low back pain; K21.9 Gastro-esophageal reflux disease without esophagitis; F32.9 Major depressive disorder, single episode, unspecified; D51.0 Vitamin B12 deficiency anemia due to intrinsic factor deficiency; Z86.73 Personal history of transient ischemic attack (TIA), and cerebral infarction without residual deficits; Z79.891 Long term (current) use of opiate analgesic; Z79.899 Other long term (current) drug therapy

== ENCOUNTER → 2018-10-28 | Outpatient (CLI) | payer OTHER ==
[~2018-10-28] VITALS: Ht 154.9 cm; Wt 100.2 kg
[~2018-10-28] MED LIST changes: +CHANTIX0.5 MG PO; +PREDNISONE 20 M20 MG PO; +VYVANSE50 MG PO
--- NOTE | ~2018-10-28 | HPC ---
[facility] [place] [address] [place] [address] PAIN MANAGEMENT CONSULTATION Name: SHANON TURNER Room #: REG ESTHER MJenniferAndrey.#: [id number] Admission: 10/28/18 ������������������ Attend Phys: Willy Whatley MD Discharge: ������������������ Date of : 72 Report #: [id number] THIS REPORT FOR: //name// CC: JOSSY Whatley Physician staff JULIAN CANADA DATE OF SERVICE: 10/28/2018 FOLLOWUP HISTORY: Here for medication renewal. HISTORY: The patient is a 48-year-old female who has been followed in the pain clinic because of chronic pain in her right leg, right hip, low back, and left knee. She has returned today with a desire to renew her medications. Notes that her pain is exacerbated with standing, cold, walking stairs, and other activities of daily living. Rates her pain as 7/10 today. She feels that her medications are working reasonably well. She is not having any significant problems with use of these medications. ALLERGIES: IRON AND CODEINE. MEDICATIONS: Norvasc 5 mg daily, Protonix 40 mg b.i.d., Flexeril 10 mg as needed, OxyIR 5 mg 3 times daily, clonazepam 0.5 mg b.i.d., albuterol inhaler, Drisdol twice weekly, Coreg 12.5 mg b.i.d., gabapentin 400 mg t.i.d., Wellbutrin 150 mg daily, calcium plus daily, multivitamin, vitamin B12 subcutaneous monthly, phentermine 37.5 mg daily and Reglan 10 mg prior to meals. PAIN CLINIC ASSESSMENT/PQRS: 1. She has some osteoarthritic changes in her hands, joint, and her spine. Denies rheumatoid arthritis. 2. Height 5 feet 1 inch, weight 221 pounds, BMI is 41.8. 3. Vital signs: Blood pressure is 127/83, pulse 87, respiratory rate 18, room air saturation 96%. 4. Pain intensity 01/27. 5. Fall risk. The patient has not fallen in the last 3 months. Did fall in the ice whether this winter. 6. Blood thinner. The patient is not on a blood thinning medication. 7. Hypertension. The patient is being treated for hypertension. 8. Opioids greater than 6 weeks. The patient receives her medications from [facility]. 9. Risk assessment tool, low for opioid use. 10. Functional assessment tool 61/70. 11. Recreational drug use, the patient denies. 12. Tobacco. The patient has stopped smoking, without tobacco use for the last [facility] [address] [place] [address] PAIN MANAGEMENT CONSULTATION Name: SHANON TURNER MISAEL Room #: REG [facility] Candace.#: [id number] Admission: 10/28/18 ������������������ Attend Phys: Willy Whatley MD Discharge: ������������������ Date of : 72 Report #: [id number] month. 13. Alcohol: The patient occasionally drinks alcoholic beverages. PHYSICAL EXAMINATION: GENERAL: The patient is a well-developed well-nourished black female, appears her stated age. She is alert and oriented x 3. Her affect is appropriate. Speech is relatively smooth today. HEART: Regular rate. ABDOMEN: Protuberant. Bowel sounds present. EXTREMITIES: Upper extremity muscle strength is judged to be generally 4+/5. Lower extremity muscle strength is 5-/5. Moves with a slightly antalgic gait. IMPRESSION: 1. Status post cardiovascular accident/transient ischemic attack. 2. Depression. 3. Acid reflux. 4. Chronic pernicious anemia related to gastric bypass. 5. Right hip pain, status post surgery of the right hip. 6. Medical management with complex regimen treated with opioids. RECOMMENDATIONS: We discussed treatment options with the patient. Risks and benefits of opioid medications were again discussed. They are helpful with pain. They can become less effective as time goes on, secondary development of tolerance. Overall, the patient feels that the medications are working reasonably well. We have discussed in the past and the patient understands chronic use of opioid medications in some people can cause dependency. She feels overall that things are going reasonably well. She will continue with her current medications. A script for her medications of Flexeril 10 mg 1 p.o. t.i.d., clonazepam 0.5 mg b.i.d., OxyIR 5 mg 1 p.o. q. 8 hours p.r.n. have been written for the next 2 months. We would like to thank you for letting us participate in her care. We hope she continues to improve. ��������������������������������������������� ���������������������������������������� By: ��������������������������������������������� [id number] Willy Whatley MD /BLAINE
[2018-10-28 09:20] VITALS: BP 127/83
--- NOTE | 2018-10-28 09:25 | NUR ---
Pain Clinic Assessment: 1. History of Osteoarthritis: SPINE JOINTS RIGHT HAND History of Rheumatoid Arthritis: Not Applicable 2. Height: 5 ft. 1 in. 154.9 cm. Weight: 221.0 lb. oz. 100.245 kg. Patient's BMI: 41.8 3. Vital Signs: BP: 127/83 Pulse: 87 Resp: 18 Temp: 02 Sat: 96 ECG Mon: 4. Pain Intensity: 7 5. Fall Risk: Dizziness: N Needs help standing or walking: N Fallen in the last 3 months: N Fall risk comments: FELL 2 WEEKS AGO ON ICE. DID NOT GO TO ER OR ANY DOC 6. Patient on Blood Thinner: None 7. History of Hypertension: Y 8. Opioid Therapy greater than 6 weeks: Y Opiate Contract Signed: 12/04/16 9. Risk Assessment Tool Provided: NANNETTE 10. Functional Assessment Tool: / 11. Recreational Drug Use: Past greater than 3 mos Drug Type: Tobacco Use: Former Smoker Tobacco Type: Amount or Packs/day: How Many Years: Alcohol Use: Yes Frequency: Quant:
== END ==
LOC: PAIN 07:06
DX: F32.9 Major depressive disorder, single episode, unspecified (principal); K21.9 Gastro-esophageal reflux disease without esophagitis; M25.551 Pain in right hip; Z98.890 Other specified postprocedural states; Z88.8 Allergy status to other drugs, medicaments and biological substances; Z79.899 Other long term (current) drug therapy

== ENCOUNTER 2018-11-03 04:04 | Emergency (ER) | payer OTHER ==
[~2018-11-03] VITALS: Ht 154.9 cm; Wt 97.5 kg
[~2018-11-03 04:04] MED LIST changes: -PREDNISONE 20 M20 MG PO
[2018-11-03] MEDS ORDERED: PREDNISONE 20 M20 MG PO (06:14)
[2018-11-03 06:41] VITALS: BP 156/89
== END 2018-11-03 06:42 | disposition home or self-care (01) ==
LOC: ER 04:04
DX: T50.5X5A Adverse effect of appetite depressants, initial encounter (principal); F17.210 Nicotine dependence, cigarettes, uncomplicated; F32.9 Major depressive disorder, single episode, unspecified; K21.9 Gastro-esophageal reflux disease without esophagitis; I10 Essential (primary) hypertension; Z88.5 Allergy status to narcotic agent; Z91.048 Other nonmedicinal substance allergy status; Z86.73 Personal history of transient ischemic attack (TIA), and cerebral infarction without residual deficits; Z86.718 Personal history of other venous thrombosis and embolism; Z98.890 Other specified postprocedural states; Z90.49 Acquired absence of other specified parts of digestive tract; Y92.89 Other specified places as the place of occurrence of the external cause

== ENCOUNTER → 2018-12-28 | Outpatient (CLI) | payer OTHER ==
[~2018-12-28] VITALS: Ht 154.9 cm; Wt 95.8 kg
[~2018-12-28] MED LIST changes: +PREDNISONE 20 M20 MG PO
[2018-12-28 08:38] VITALS: BP 140/79
--- NOTE | 2018-12-28 09:01 | NUR ---
Pain Clinic Assessment: 1. History of Osteoarthritis: SPINE JOINTS RIGHT HAND History of Rheumatoid Arthritis: Not Applicable 2. Height: 5 ft. 1 in. 154.9 cm. Weight: 211.2 lb. oz. 95.800 kg. Patient's BMI: 39.9 3. Vital Signs: BP: 140/79 Pulse: 98 Resp: 20 Temp: 02 Sat: 100 ECG Mon: 4. Pain Intensity: 7 5. Fall Risk: Dizziness: Y Needs help standing or walking: N Fallen in the last 3 months: N Fall risk comments: FELL 2 WEEKS AGO ON ICE. DID NOT GO TO ER OR ANY DOC 6. Patient on Blood Thinner: None 7. History of Hypertension: Y 8. Opioid Therapy greater than 6 weeks: Y Opiate Contract Signed: 12/04/16 9. Risk Assessment Tool Provided: NANNETTE 10. Functional Assessment Tool: 61/70 11. Recreational Drug Use: Past greater than 3 mos Drug Type: Tobacco Use: Former Smoker Tobacco Type: Amount or Packs/day: How Many Years: Alcohol Use: Yes Frequency: Weekly Quant: WINE
--- NOTE | 2018-12-29 14:26 | HPC ---
[facility] [address] [place] [address] PAIN MANAGEMENT CONSULTATION Name: SHANON TURNER Room #: REG [facility] M.R.#: [id number] Admission: 12/28/18 ������������������ Attend Phys: Kandice Soares Discharge: ������������������ Date of : 72 Report #: [id number] THIS REPORT FOR: //name// CC: Kandice Whatley MD FAM unknown Oneil Bond MD CHIEF COMPLAINT: Low back pain, bilateral leg pain. HISTORY OF PRESENT ILLNESS: This is a very pleasant 48-year-old female who returns to the pain clinic today for her ongoing chronic right leg pain, right hip pain and low back pain. She would like her medications refilled today. She tells me that the weather has increased her pain slightly and she is rating it as 7/10. She feels that also prolonged standing and driving and sitting makes her pain worse, but her medications, lying down and stretching are very helpful. She tells me that she does not require her clonazepam every day twice a day, but still is needing her pain pills 3 times a day. 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 ALLERGIES: IRON AND CODEINE. CURRENT MEDICATIONS: Flexeril 10 mg 3 times a day, prednisone 20 mg b.i.d., OxyIR 5 mg q. 8 hours, Clonazepam 0.5 mg b.i.d., Chantix, Vyvanse 50 mg daily, Reglan 10 mg daily, amlodipine 5 mg daily, Protonix 40 mg b.i.d., albuterol inhaler as needed, Drisdol weekly, carvedilol 12.5 mg b.i.d., Neurontin 400 mg t.i.d., Wellbutrin 150 mg daily, calcium, multivitamin and vitamin B12. PQRS: 1. She has a history of osteoarthritis in her hands, joint and spine. She denies any rheumatoid arthritis. 2. Height is 5 feet 1 inch, weight is 211, BMI is 39.9, this is down 10 pounds since her last visit in October. 3. Vital Signs: Blood pressure 140/79, pulse is 98, respirations 20, oxygen sat is 100. 4. Pain score is 7/10. 5. Complains of dizziness, does not need help walking and standing, has not fallen in the last 3 months. 6. The patient is not on any blood thinners, but does take medicine for hypertension. 7. Opioid therapy is greater than 6 weeks; therefore, an opiate signed contract [address] [address] PAIN MANAGEMENT CONSULTATION Name: SHANON TURNER MISAEL Room #: REG [facility] Salas#: [id number] Admission: 12/28/18 ������������������ Attend Phys: Kandice Soares Discharge: ������������������ Date of : 72 Report #: [id number] is on the chart. 8. Risk assessment tool is low. Functional assessment 61/70. 9. Recreational drug use in the past. She is a former smoker using Chantix and does take occasional alcohol use. We did check the prescription monitoring system, the patient is filling appropriately for her medications and she does have a recent drug screen on the chart that is appropriate for her medications. PHYSICAL EXAMINATION: GENERAL: This is a well-developed, well-nourished black female who appears her stated age. She is alert and oriented. Her affect is appropriate. She is rating her pain at 7/10 today. HEENT: Normocephalic, atraumatic. Extraocular eye muscles are intact. Mucous membranes are moist. Hearing is within normal limits. MUSCULOSKELETAL: Upper extremity strength judged to be 4/5 bilaterally, lower extremity is 5/5. She walks with a slightly antalgic gait. Pain radiates from her right hip into her right leg and in her left knee. ASSESSMENT: 1. Status post cardiovascular accident, transient ischemic attack. 2. Depression. 3. Right hip pain, status post surgery of right hip. 4. Medical management of complex regimen of opioid medications. We reviewed the fact that opiate medications are being used to provide analgesia adequate to support activities of daily living, not attempting to achieve a specific pain score on the 0-10 Visual Analog Scale. The current opiate medications are providing sufficient analgesia to allow the patient to participate in activities of daily living. The patient is not exhibiting any aberrant behavior suggestive of drug diversion. The patient is not having any adverse reactions to medications. The patient is not suffering from daytime somnolence or mental acuity changes. The patient is managing opiate-induced constipation with appropriate uaka-tih-wlncder agents and dietary considerations. The patient was counseled on concern for caution with operating a motor vehicle while using opiate medications. A physical exam was performed and the patient's functional status was evaluated. All patients with back pain were advised against the bed rest greater than 4 days and were advised to return to normal activities. Pain score assessment was noted and the treatment plan was reviewed with the patient. All current medications, both prescribed and OTC were reviewed and reconciled on the electronic medical record. Tobacco screening was accomplished and smoking cessation was advised when indicated. BMI was noted and diet/exercise modification was recommended for all patients following outside normal parameters. [facility] [address] [place] [address] PAIN MANAGEMENT CONSULTATION Name: SHANON TURNER Room #: REG CL M..#: [id number] Admission: 12/28/18 ������������������ Attend Phys: Kandice FARHEEN Soares Discharge: ������������������ Date of : 72 Report #: [id number] I reviewed with the patient today their responsibilities to safeguard prescription medications, reviewed their responsibility to utilize medications only as prescribed by the physician. They are to seek and receive pain medications only from 1 physician group ( [facility]). They are to use 1 pharmacy and keep the clinic informed if they change pharmacies. Their responsibilities include making followup visits in a timely fashion and to avoid abrupt discontinuation of medication usage. Their responsibilities further include bringing their medications (bottles from the pharmacy with residual pills) to the visit for possible confirmation of pill counts and the patient understands it is their responsibility to submit to random drug screens to ensure both that the medications prescribed are present, and that no other controlled substances are present. All prescriptions provided today were generated electronically. RECOMMENDATIONS: 1. We discussed treatment options with the patient today. The patient feels like they are quite helpful in relieving her pain. We will continue her OxyIR 5 mg 3 times a day #90 for today and one additional month, clonazepam 0.5 mg b.i.d. #60 with one refill and Flexeril 10 mg #90 with one additional refill. 2. We did discuss if the patient does become a missionary and does take assignments greater than 1 month, then she will need to consider trying to decrease her opioid use prior to going [place] since she will have difficult time filling [place] medications [place]. The patient verbalizes understanding. She will try to decrease them some. She had thought of that since she has started this process of thinking about being a missionary. 3. The patient denies any daytime sleepiness or constipation that is related to these medications. 4. I have discussed this patient with Dr. Whatley and we reviewed the chart for medication needs. He is available by phone if any additional collaboration needed today. ��������������������������������������������� <ELECTRONICALLY SIGNED> ���������������������������������������� By: Kandice Soares ��������������������������������������������� 12/29/18 1426 0927 1201 Kandice Soares /nt
== END ==
LOC: PAIN 06:45
DX: M25.551 Pain in right hip (principal); M79.605 Pain in left leg; M79.604 Pain in right leg; M54.5 Low back pain; M19.90 Unspecified osteoarthritis, unspecified site; R42 Dizziness and giddiness; F32.9 Major depressive disorder, single episode, unspecified; Z79.891 Long term (current) use of opiate analgesic; Z86.73 Personal history of transient ischemic attack (TIA), and cerebral infarction without residual deficits; Z96.641 Presence of right artificial hip joint

== ENCOUNTER 2019-01-23 21:35 | Inpatient (IN) | payer OTHER ==
[~2019-01-23] VITALS: Ht 162.6 cm; Wt 99.8 kg
[2019-01-23 21:37] VITALS: BP 136/82
[2019-01-23 22:41] LABS: BASOPHILS 0.2 % (0.0-2.0); EOSINOPHILS 0.2 % (0.0-3.0); HEMATOCRIT 36.4 % (37.0-47.0); HEMOGLOBIN 11.8 gm/dL (12.0-15.0); LYMPHOCYTES 4.6 % (24.0-44.0); MCH 28.5 pg (26.0-34.0); MCHC 32.3 g/dL (28.0-37.0); MCV 88.3 fL (80.0-100.0); MONOCYTES 5.8 % (1.0-8.0); PLATELET COUNT 369 thou/uL (150-400); POLYS 89.2 % (36.0-66.0); RBC 4.13 mil/uL (4.20-5.00); RDW 13.3 % (10.5-14.5); WBC 11.3 thou/uL (4.0-11.0)
[2019-01-23 22:50] LABS: AMP/METHAMP POSITIVE (Negative); BARBITURATES Negative (Negative); BENZODIAZEPINES Negative (Negative); COCAINE Negative (Negative); METHADONE Negative (Negative); OPIATES POSITIVE (Negative); PCP Negative (Negative)
[2019-01-23 22:51] LABS: CALCIUM 8.6 mg/dL (8.5-10.1); CREATININE 1.1 mg/dL (0.6-1.0); POTASSIUM 4.7 mmol/L (3.5-5.1)
[2019-01-23 23:01] LABS: ALBUMIN 3.6 g/dL (3.4-5.0); MAGNESIUM 1.9 mg/dL (1.8-2.4); SALICYLATE 2.7 mg/dL (2.8-20.0); TOTAL BILIRUBIN 0.3 mg/dL (<0.1-1.0); TOTAL PROTEIN 7.8 g/dL (6.4-8.2); TROPONIN-I 0.16 ng/mL (<0.06)
[2019-01-24] VITALS (7 sets, daily range): BP systolic 112–148; BP diastolic 71–98
--- NOTE | 2019-01-24 03:07 | NUR ---
PATIENT ARRIVED FROM ED VIA BED AT 0100. TAKEN DOWN FOR CT OF HEAD WHICH WAS NOT DONE DUE TO THE MACHINE BEING DOWN. RETURNED TO ROOM AT 0130 VIA WHEELCHAIR. PATIENT UP WITH 1-2 ASSIST TO BSC WHEN FIRST ARRIVED TO ROOM SHE WAS STILL UNSTEADY. 3LNC WITH SOME SOA WITH EXERTION. CONTINUOUS FLUIDS PER ORDER. SPUTUM SAMPLE SENT DUE TO COLOR, YELLOW/GREEN. TACHY AT TIMES, PATIENT IS ON TELEMETRY. GIVEN TYLENOL FOR HEADACHE, STATES SHE HAS A HISTORY OF MIGRANES. RESTING QUIETLY, WILL MONITOR.
[2019-01-24 06:00] LABS: HEMATOCRIT 34.8 % (37.0-47.0); HEMOGLOBIN 11.1 gm/dL (12.0-15.0); MCHC 31.8 g/dL (28.0-37.0); MCV 91.1 fL (80.0-100.0); RBC 3.82 mil/uL (4.20-5.00); RDW 13.8 % (10.5-14.5); WBC 13.3 thou/uL (4.0-11.0)
[2019-01-24 06:31] LABS: CALCIUM 8.5 mg/dL (8.5-10.1); CREATININE 0.9 mg/dL (0.6-1.0); POTASSIUM 4.1 mmol/L (3.5-5.1)
--- NOTE | 2019-01-24 13:53 | EKG ---
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 : 1970 Requested By: Kenrick Francis Order Number: [id number] MD: Praneeth Marie Measurements Intervals [place] Rate: 124 P: 75 MI: 118 QRS: 47 QRSD: 94 T: 28 QT: 324 QTc: 466 Interpretive Statements Sinus tachycardia Otherwise normal tracing Compared to ECG 12/23/2017 00:10:[address] and T wave abnormality is no longer present Electronically Signed On 01-24-2019 13:52:59 CDT by Praneeth Marie [email or web address] ��������������������������������������������� <ELECTRONICALLY SIGNED> ���������������������������������������� By: Praneeth Marie MD, [facility] ��������������������������������������������� 01/24/19 135 41 41 Praneeth Marie MD, [facility] /EPI
--- NOTE | 2019-01-24 20:08 | NUR ---
Assumed care at 0700 this AM. Patient taken down for CT of the head in wheelchair with transporter today. Patient remains weak and not to her baseline with activity. Patient has had a loose cough and expelling yellow sputum. Patient stated this evening that she feels like she has a lot of congestion in her chest, but feels that the breathing treatments are working well for her. Slow progress made toward plan of care goals.
[2019-01-25 01:59] LABS: URINE BILIRUBIN NEGATIVE (Negative); URINE BLOOD NEGATIVE (Negative); URINE CLARITY CLEAR; URINE COLOR YELLOW; URINE GLUCOSE-RANDOM* NEGATIVE (Negative); URINE KETONES NEGATIVE (Negative); URINE LEUKOCYTES-REFLEX NEGATIVE (Negative); URINE NITRITE-REFLEX NEGATIVE (Negative); URINE PROTEIN (DIPSTICK) NEGATIVE (Negative); URINE SPECIFIC GRAVITY <= 1.005 (1.005-1.035)
[2019-01-25 04:20] VITALS: BP 154/89
--- NOTE | 2019-01-25 05:06 | NUR ---
FOLLOWING POC WITH IVF AND OXYGENATION. PT A/OX4, NO TELE CONCERNS, AND LUNGS ARE DIMINISHED AND COURSE. NO GI OR CONCERNS WITH PT USING BSC WITH X1 ASSIST. FALL PRECAUTIONS IN PLACE. PT USES CALL LIGHT APPROPRIATELY TO REQUEST PAIN MEDICATION. HOURLY ROUNDING.
[2019-01-25 07:27] VITALS: BP 143/92
[2019-01-25 10:18] LABS: CALCIUM 8.8 mg/dL (8.5-10.1); CREATININE 0.8 mg/dL (0.6-1.0)
[2019-01-25 12:07] LABS: ABSOLUTE NEUTROPHILS 10.2 thou/uL (1.4-8.2); BASOPHILS 0.4 % (0.0-2.0); HEMATOCRIT 37.6 % (37.0-47.0); HEMOGLOBIN 12.4 gm/dL (12.0-15.0); MCH 28.8 pg (26.0-34.0); MCV 87.3 fL (80.0-100.0); PLATELET COUNT 334 thou/uL (150-400); POLYS 90.6 % (36.0-66.0); RDW 13.6 % (10.5-14.5); WBC 11.2 thou/uL (4.0-11.0)
--- NOTE | 2019-01-25 15:08 | NUR ---
CONSULTED TO PLACE A PIV. UNABLE TO FIND A VEIN FOR PERIPHERAL IV ACCESS IN BILATERAL FOREARMS. THE RUE BASILIC WAS WIDLEY PATENT AND 2CM DEEP. DISCUSSED MIDLINE PLACEMENT WITH THE PATIENT AND SHE VERBALIZED UNDERSTANDING. A #4F POWERMIDLINE WAS PLACED PER HOSPITAL POLICY. LINE WAS TRIMMED TO 14CM AND ADVANCED WITHOUT DIFFICULTY. LINE SECURED AND RELEASED FOR USE
[2019-01-25 15:51] VITALS: BP 157/96
--- NOTE | 2019-01-25 17:49 | NUR ---
TAKE OVER PATIENT CARE AT 1600. A/O X3. NO DISDRESS NOTED. WILL KEEP MONITOR. PATIENT TOLERATED ON RA AT THIS TIME.
[2019-01-25 19:03] VITALS: BP 159/85
[2019-01-26 02:08] LABS: GLYCOHEMOGLOBIN (HGB A1C) 5.5 % (4.8-5.6)
--- NOTE | 2019-01-26 03:48 | NUR ---
ASSUMED PT CARE AROUND 1900. A&OX4. C/O HEADACHE AT BEGINNING OF SHIFT. TYLENOL GIVEN WITH SOME RELIEF. PT SLEPT MOST OF THE NIGHT. UP W/ SBA TO BTR. TOLERATED WELL. IVF INFUSING ORDERED. FALL PRECAUTIONS IN PLACE. EARLY THIS MORNING, PT DID C/O SOME BURNING IN HER CHEST WITH LYING FLAT; SHE STATED IT FELT LIKE HEARTBURN AND WENT AWAY WHEN SHE SAT UP. PT SLEEPING AGAIN AT THIS TIME. PROGRESSING TOWARD POC GOALS. WILL CONTINUE TO MONITOR FURTHER.
[2019-01-26 04:12] VITALS: BP 165/97
--- NOTE | 2019-01-26 06:42 | NUR ---
PT STILL C/O SOME BURNING IN HER CHEST THAT RADIATES TO HER BACK. NOTIFIED NYASIA ANDUJAR NP. ORDERS RECEIVED FOR EKG AND TROPONIN. WILL UPDATE ONCOMING NURSE.
[2019-01-26 07:25] VITALS: BP 167/90
--- NOTE | 2019-01-26 07:55 | EKG ---
[place] [address] [facility] [employer] [place] [address] ELECTROCARDIOGRAM REPORT Name: SHANON TURNER Room #: 351-P ADM IN M.R.#: [id number] ������������������ Admission: 01/24/19 ������������������ Attend Phys: Nirav Mcdaniels MD Discharge: ������������������ Date of : 72 Report #: [id number] ����������������������������������������������������������������� [id number] THIS REPORT FOR: //name// 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1970 Requested By: Basia Vasquez Order Number: [id number] MD: Praneeth Marie Measurements Intervals [place] Rate: 63 P: 26 NM: 127 QRS: 11 QRSD: 91 T: 6 QT: 447 QTc: 458 Interpretive Statements Sinus rhythm T abnormalities, anterior leads Compared to ECG 01/23/2019 21:42:13 T-wave abnormality now present Sinus tachycardia no longer present Electronically Signed On 01-26-2019 7:55:32 CDT by Praneeth Marie [email or web address] ��������������������������������������������� <ELECTRONICALLY SIGNED> ���������������������������������������� By: Praneeth Marie MD, [facility] ��������������������������������������������� 01/26/19 0755 0625 Praneeth Marie MD, [facility] /EPI
[2019-01-26] MEDS ORDERED: IPRAT-ALBUT 0.5-3 ML INH (10:47)
[2019-01-26] MEDS ORDERED: PREDNISONE 10 M10 MG PO (10:49)
--- NOTE | 2019-01-26 11:20 | NUR ---
pt's assessment has done, pt is A&OX3, PT has some cough, but pt is on RA, PT denies pain and SOB at this time, pt can get up bathroom by herself , pt will discharge to home/HH today.
[2019-01-26 13:07] VITALS: BP 167/90
--- NOTE | 2019-01-26 13:31 | NUR ---
assessment: cm reviewed chart and met with patient at the bedside. pt is fully independent with adls and ambulation. PHYSICIAN WANTED TO SEE IF PATIENT COULD GET A NEBULIZER AT DISCHARGE. CM MET WITH PATIENT AND SHE HAD NO PREFERENCE OF DME PROVIDER. VAMSHI SPOKE WITH RACHID MURILLO AT [facility] AND SHE STATES THEY REVIEWED DOCUMENTATION AND PATIENT DOES NOT HAVE A MEDICAL DIAGNOSIS TO QUALIFY FOR A NEBULIZER WHERE IT WOULD BE COVERED BY INSURANCE. SHE STATES PATIENT COULD PAY OUT OF POCKER FOR ONE COSTING 90/DALLARS BY CONTACTING THEIR OFFICE IF SHE CHOSE. VAMSHI NOTIFIED ATTENDING WHO STATES PATIENT DOES NOT NEED NEBULIZER. CM NOTIFIED PATIENT AND THAT SHE COULD ALSO PURCHASE ONE OUT OF POCKET IF SHE WISHED BY CONTACTING THE [facility] OFFICE. CM PROVIDED HER WITH NUMBER FOR [facility]. PT REPORTS NO FURTHER NEEDS FROM VAMSHI.
--- NOTE | 2019-01-26 15:38 | NUR ---
P.T. REQUISITION ORDERED BUT DEFERRED PT GETTING READY FOR D/C. PT AND RN CONFIRM PT IS AMBULATING AD JOSE IN ROOM WITHOUT DIFFICULTY. PT OBSERVED AMB TO AND FROM THE BATHROOM WITHOUT SIGNIFICANT SOB OR GAIT DEVIATIONS.
== END 2019-01-26 14:06 | disposition home or self-care (01) | DRG 92 ==
LOC: ER 21:35 → EROBS 01-24 00:52 → 3W 01-24 00:52 → ENTRNSPT 01-26 13:59 → EDTRNSPTSTS 01-26 14:05 → 3W 01-26 14:06
PROVIDERS: Emergency Medicine; Nurse Practitioner Family; ADMIT Hospitalist
PROC: 05HY33Z Insertion of Infusion Device into Upper Vein, Percutaneous Approach (ICD-10-PCS; principal; 2019-01-25)
DX: G92 Toxic encephalopathy (principal); I69.351 Hemiplegia and hemiparesis following cerebral infarction affecting right dominant side; F19.10 Other psychoactive substance abuse, uncomplicated; F32.9 Major depressive disorder, single episode, unspecified; F41.9 Anxiety disorder, unspecified; E66.01 Morbid (severe) obesity due to excess calories; G89.4 Chronic pain syndrome; K21.9 Gastro-esophageal reflux disease without esophagitis; I10 Essential (primary) hypertension; Z98.891 History of uterine scar from previous surgery; Z90.49 Acquired absence of other specified parts of digestive tract; Z86.718 Personal history of other venous thrombosis and embolism; Z86.711 Personal history of pulmonary embolism; Z98.84 Bariatric surgery status; Z88.5 Allergy status to narcotic agent; Z88.8 Allergy status to other drugs, medicaments and biological substances; Z87.891 Personal history of nicotine dependence; Z82.49 Family history of ischemic heart disease and other diseases of the circulatory system; Z80.0 Family history of malignant neoplasm of digestive organs; Z68.37 Body mass index [BMI] 37.0-37.9, adult; Y92.89 Other specified places as the place of occurrence of the external cause
CPT/HCPCS: 10879; 27000

== ENCOUNTER → 2019-02-24 | Outpatient (CLI) | payer OTHER ==
[~2019-02-24] VITALS: Ht 154.9 cm; Wt 96.7 kg
[~2019-02-24] MED LIST changes: +IPRAT-ALBUT 0.5-3 ML INH; +LOMAIRA8 MG PO; +PREDNISONE 10 M10 MG PO; +QSYMIA 3.75 MG1 EACH PO
[2019-02-24 08:32] VITALS: BP 137/93
--- NOTE | 2019-02-24 08:39 | NUR ---
Pain Clinic Assessment: 1. History of Osteoarthritis: SPINE JOINTS RIGHT HAND History of Rheumatoid Arthritis: Not Applicable 2. Height: 5 ft. 1 in. 154.9 cm. Weight: 213.2 lb. oz. 96.707 kg. Patient's BMI: 40.3 3. Vital Signs: BP: 137/93 Pulse: 97 Resp: 16 Temp: 02 Sat: 98 ECG Mon: 4. Pain Intensity: 7 5. Fall Risk: Dizziness: N Needs help standing or walking: N Fallen in the last 3 months: N Fall risk comments: FELL 2 WEEKS AGO ON ICE. DID NOT GO TO ER OR ANY DOC 6. Patient on Blood Thinner: None 7. History of Hypertension: Y 8. Opioid Therapy greater than 6 weeks: Y Opiate Contract Signed: 12/04/16 9. Risk Assessment Tool Provided: NANNETTE 10. Functional Assessment Tool: 11. Recreational Drug Use: Past greater than 3 mos Drug Type: Tobacco Use: Former Smoker Tobacco Type: Amount or Packs/day: How Many Years: Alcohol Use: Yes Frequency: Weekly Quant: 1-2
--- NOTE | 2019-02-24 14:28 | HPC ---
[facility] [address] [place] [address] PAIN MANAGEMENT CONSULTATION Name: SHANON TURNER Room #: REG Shira M.Andrey.#: [id number] Admission: 02/24/19 Attend Phys: Kandice Soares Discharge: Date of : 72 Report #: [id number] THIS REPORT FOR: //name// CC: Kandice WHATLEY MD [facility] unknown DATE OF SERVICE: 02/24/2019 CHIEF COMPLAINT: Low back pain, bilateral leg pain. HISTORY OF PRESENT ILLNESS: This is a pleasant 48-year-old female who returns to the pain clinic today for a refill of her medications for her ongoing chronic right leg pain and low back pain. She tells me that she was recently hospitalized due to mixing up some of her medicines. According to the ER documentation that she is on large amounts of opioids, which in reality she is on three OxyIR 5 mg a day maximum. This is according to the CDC guidelines at 30 morphine mEq, which is below their 50 morphine mEq guidelines. She is on a low dose of opioids, but she does take a combination of clonazepam and opioids, which she is trying to decrease. Evidently, she had taken too many clonazepam and was not feeling well and she went to the Emergency Room and was administered some Narcan and was in the hospital for several days. Since her discharge from the hospital, she has stopped her clonazepam and is here present today for refill of her oxycodone. The patient does complain of a pain of 7/10 today, mostly in her low back, again in her right leg and bilateral hips. The weather does affect these pain generators. She tells me also standing and driving and prolonged sitting does flare her pain. Her medications and lying down as well as stretching are beneficial. She denies any problems with constipation from these medicines. The patient tells me she is taking 3 appetite suppressant medicines, phentermine /topiramate, the second medicine is Lomaira and then the third medicine is Vyvanse, from her bariatric physician. She is going to discuss if she needs to be on all 3 of those medications when she sees him on Friday. She is increased 2 pounds since our last visit in 12/2018. ALLERGIES: IRON and CODEINE. CURRENT LIST OF MEDICATIONS: OxyIR 5 mg p.r.n., Chantix, Vyvanse 50 mg daily, Reglan 10 mg at bedtime, Norvasc 5 mg daily, Protonix 40 mg daily, Drisdol daily, carvedilol 12.5 mg b.i.d., gabapentin 400 mg t.i.d., Wellbutrin 150 mg daily, calcium, multivitamin, vitamin B12, phentermine and topiramate 37.5/25 and Lomaira 8 mg daily. [facility] [address] [place] [address] PAIN MANAGEMENT CONSULTATION Name: SHANON TURNER MISAEL Room #: REG ESTHER Ureña.R.#: [id number] Admission: 02/24/19 Attend Phys: Kandice Soares Discharge: Date of : 72 Report #: [id number] PQRS: 1. She has a history of osteoarthritis in her spine, joints, hips and hands. Denies any rheumatoid arthritis. 2. Height is 5 feet 1, weight is 213, BMI is 40. 3. Vital signs: Blood pressure 137/93, pulse is 97, respirations 16, oxygen sat is 98. 4. Pain score 7/10. 5. Denies dizziness, does not need help walking or standing, has not fallen in the last 3 months. 6. The patient is not on any blood thinners, does take medicine for hypertension. Opioid therapy is greater than 6 weeks; therefore, an opiate signed contract is on the chart. 7. Risk assessment is low. Functional assessment is 61/70. 8. Recreational drug use in the past. She is a former smoker using Chantix and occasionally drinks alcohol. According to the prescription monitoring system, the patient is filling her medicines appropriately. There is a drug screen on the chart as well as the hospital recently performed a drug screen as well. PHYSICAL EXAMINATION: GENERAL: This is a well-developed, well-nourished, obese 48-year-old female who appears her stated age, rating her pain score as 7/10. HEENT: Normocephalic, atraumatic. Extraocular eye muscles are intact. Mucous membranes are moist. Her speech is fluent. Hearing is within normal limits. MUSCULOSKELETAL: Upper extremity strength judged to be 4/5 bilaterally. She walks with a slightly antalgic gait. Pain radiates from her lumbar spine down her right hip to her knee. ASSESSMENT: 1. Status post cardiovascular accident, transient ischemic attack. 2. Depression. 3. Right hip pain, status post history of the right hip. 4. Low back pain. 5. Management of high risk medications under terms of written opioid agreement. We reviewed the fact that opiate medications are being used to provide analgesia adequate to support activities of daily living, not attempting to achieve a specific pain score on the 0-10 Visual Analog Scale. The current opiate medications are providing sufficient analgesia to allow the patient to participate in activities of daily living. The patient is not exhibiting any aberrant behavior suggestive of drug diversion. The patient is not having any adverse reactions to medications. The patient is not suffering from daytime somnolence or mental acuity changes. The patient is managing opiate-induced constipation with appropriate leoz-ime-nqpafgw agents and dietary [facility] [address] [place] [address] PAIN MANAGEMENT CONSULTATION Name: SHANON TURNER Room #: REG CLI ..#: [id number] Admission: 02/24/19 Attend Phys: Kandice Soares Discharge: Date of : 72 Report #: [id number] considerations. The patient was counseled on concern for caution with operating a motor vehicle while using opiate medications. A physical exam was performed and the patient's functional status was evaluated. All patients with back pain were advised against the bed rest greater than 4 days and were advised to return to normal activities. Pain score assessment was noted and the treatment plan was reviewed with the patient. All current medications, both prescribed and OTC were reviewed and reconciled on the electronic medical record. Tobacco screening was accomplished and smoking cessation was advised when indicated. BMI was noted and diet/exercise modification was recommended for all patients following outside normal parameters. I reviewed with the patient today their responsibilities to safeguard prescription medications, reviewed their responsibility to utilize medications only as prescribed by the physician. They are to seek and receive pain medications only from 1 physician group ( [facility]). They are to use 1 pharmacy and keep the clinic informed if they change pharmacies. Their responsibilities include making followup visits in a timely fashion and to avoid abrupt discontinuation of medication usage. Their responsibilities further include bringing their medications (bottles from the pharmacy with residual pills) to the visit for possible confirmation of pill counts and the patient understands it is their responsibility to submit to random drug screens to ensure both that the medications prescribed are present, and that no other controlled substances are present. All prescriptions provided today were generated electronically. PLAN: 1. We discussed treatment options with her today. We discussed her recent hospitalization. She tells me that she did take more clonazepam and she was supposed to. She is now off of that medicine and we will no longer be writing that medication. We did talk about the interaction with opioids and other medications such as her clonazepam, which we have been trying to decrease both of them as well. So today, we did discuss decreasing her opioids from 90 tablets to 75 taking 2-3 times a day instead of 3 daily. The patient thinks that she is able to tolerate this decrease. Scripts given today for #75. 2. We will see the patient monthly due to her recent hospitalization. The patient understands why we need to see her on a monthly basis. 3. 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 She verbalizes understanding that she knows she needs to be off of them before she lives in a year. 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 4. The patient does not need Flexeril at this time. She does tell me that it does make her cause some sedation. I encouraged her to take lowest most effective dose or taking half of a pill. No scripts given today. 5. The patient will talk to her bariatric doctor about her three appetite suppressant medications and to verify that she is to be taking 3 of the same [address] [address] PAIN MANAGEMENT CONSULTATION Name: SHANON TURNER MISAEL Room #: REG Shira Ureña.Andrey.#: [id number] Admission: 02/24/19 Attend Phys: Kandice PRACTICE OR STUDENT TEACHER Hocker Discharge: Date of : 72 Report #: [id number] type of medication. She has an appointment on Friday. The patient is seen with Dr. Whatley who collaborated care. The patient will follow up in 1 month. <ELECTRONICALLY SIGNED> By: Kandice Soares 02/24/19 1428 [id number] 1230 Kandice Soares /nt
== END ==
LOC: PAIN 06:46
DX: M54.5 Low back pain (principal); M79.661 Pain in right lower leg; M79.662 Pain in left lower leg; F32.9 Major depressive disorder, single episode, unspecified; M25.551 Pain in right hip; G45.9 Transient cerebral ischemic attack, unspecified; Z79.891 Long term (current) use of opiate analgesic; Z88.8 Allergy status to other drugs, medicaments and biological substances; Z79.899 Other long term (current) drug therapy

== ENCOUNTER → 2019-03-24 | Outpatient (CLI) | payer OTHER ==
[~2019-03-24] VITALS: Ht 154.9 cm; Wt 93.7 kg
[~2019-03-24] MED LIST changes: +SUMATRIPTAN SUC50 MG PO
[2019-03-24 08:42] VITALS: BP 131/95
--- NOTE | 2019-03-24 08:44 | NUR ---
Pain Clinic Assessment: 1. History of Osteoarthritis: SPINE JOINTS RIGHT HAND History of Rheumatoid Arthritis: Not Applicable 2. Height: 5 ft. 1 in. 154.9 cm. Weight: 206.6 lb. oz. 93.713 kg. Patient's BMI: 39.1 3. Vital Signs: BP: 131/95 Pulse: 95 Resp: 16 Temp: 02 Sat: ECG Mon: 4. Pain Intensity: 8 5. Fall Risk: Dizziness: N Needs help standing or walking: N Fallen in the last 3 months: N Fall risk comments: FELL 2 WEEKS AGO ON ICE. DID NOT GO TO ER OR ANY DOC 6. Patient on Blood Thinner: None 7. History of Hypertension: Y 8. Opioid Therapy greater than 6 weeks: Y Opiate Contract Signed: 12/04/16 9. Risk Assessment Tool Provided: NANNETTE 10. Functional Assessment Tool: /70 11. Recreational Drug Use: Past greater than 3 mos Drug Type: Tobacco Use: Former Smoker Tobacco Type: Amount or Packs/day: How Many Years: Alcohol Use: Yes Frequency: Special Occasions Quant:
--- NOTE | 2019-03-25 08:09 | HPC ---
[facility] [address] [address] PAIN MANAGEMENT CONSULTATION Name: SHANON TURNER MISAEL Room #: REG ESTHER Ma.#: [id number] Admission: 03/24/19 Attend Phys: Kandice Soares Discharge: Date of : 72 Report #: [id number] THIS REPORT FOR: //name// CC: Kandice WHATLEY Physician staff DATE OF SERVICE: 03/24/2019 CHIEF COMPLAINT: Low back pain, bilateral leg pain and migraine headache. HISTORY OF PRESENT ILLNESS: This is a pleasant 48-year-old female who returns to the pain clinic today for refill of her medications that she uses to help treat her ongoing low back pain, bilateral hip pain and right leg pain. Today, she is also reporting that she has been experiencing daily migraines. She is currently seeing a Dr. Trotter at [facility] and they are in the process of working her up for migraines. She had recently had an MRI. Per her report she has been trialing Topamax. They have been adjusting her meds. She has been keeping a daily migraine diary and reporting to them her findings today. She is complaining of a significant migraine as her pain score is an 8/10. The current pain that we treat her for is her right leg pain that radiates from her low back past to her knee today as well as her hip pain that is worse with standing, driving and prolonged sitting. She said it is better with medications and relaxing and lying down. She also finds her Flexeril very beneficial as well as her oxycodone and would like refills of both of those today. ALLERGIES: IRON AND CODEINE. CURRENT LIST OF MEDICATIONS: Phentermine 8 mg daily, Flexeril p.r.n., OxyIR 2-3 times a day, Imitrex p.r.n. and Topamax 50 mg b.i.d., Chantix, Vyvanse 60 mg daily, Reglan 10 mg 4 times a day, amlodipine, Protonix, Drisdol, Coreg, Neurontin, Wellbutrin, calcium, multivitamin and B12. PQRS: 1. The patient has a history of osteoarthritis in her multiple pain generators, spine and joints, hips and hands. Denies rheumatoid arthritis. 2. Height is 5 feet 1 inch, weight is 206, which is down from 213, BMI is 39. 3. Vital signs 131/95, pulse is 95, respirations 16, oxygen sat is 100. 4. Pain score is 8/10. 5. Denies dizziness, does not need help standing or walking, has not fallen in the last 3 months, though she does use a cane at times. The patient is not on any blood thinners, but does take medicine for hypertension. 6. Opiate therapy is greater than 6 weeks; therefore, an opiate signed contract is on the chart. Risk assessment tool is low. Functional assessment 61/70. 7. Recreational drug use in the past, former smoker and does currently drink [address] [address] PAIN MANAGEMENT CONSULTATION Name: SHANON TURNER MISAEL Room #: REG ESTHER Salas#: [id number] Admission: 03/24/19 Attend Phys: Kandice Soares Discharge: Date of : 72 Report #: [id number] some alcohol. According to the prescription monitoring system, the patient is filling her permit phentermine and Vyvanse as well as her oxycodone appropriately. There is a drug screen on the chart as well. PHYSICAL EXAMINATION: GENERAL: This is a well-developed, well-nourished, obese 48-year-old who appears her stated age, placing her current pain score 8/10 today. HEENT: Normocephalic, atraumatic. Extraocular eye muscles are intact. Mucous membranes are moist. Eyes are squinting due to the lights on with photosensitivity today. Hearing is within normal limits. MUSCULOSKELETAL: Upper extremity strength judged to be 4/5 bilaterally. She walks with an antalgic gait. Pain radiates from her lumbar spine down the outer aspect of her right hip to her knees today. She is using a cane with walking. The patient also complains of a temporal migraine. ASSESSMENT: 1. Status post cardiovascular accident or ischemic attack. 2. Depression. 3. Right hip pain, status post history of hip surgery. 4. Low back pain with radiculopathy. 5. Management of high risk medications under terms of written opioid agreement. 6. Migraines. We reviewed the fact that opiate medications are being used to provide analgesia adequate to support activities of daily living, not attempting to achieve a specific pain score on the 0-10 Visual Analog Scale. The current opiate medications are providing sufficient analgesia to allow the patient to participate in activities of daily living. The patient is not exhibiting any aberrant behavior suggestive of drug diversion. The patient is not having any adverse reactions to medications. The patient is not suffering from daytime somnolence or mental acuity changes. The patient is managing opiate-induced constipation with appropriate daid-zrj-ucfsegn agents and dietary considerations. The patient was counseled on concern for caution with operating a motor vehicle while using opiate medications. A physical exam was performed and the patient's functional status was evaluated. All patients with back pain were advised against the bed rest greater than 4 days and were advised to return to normal activities. Pain score assessment was noted and the treatment plan was reviewed with the patient. All current medications, both prescribed and OTC were reviewed and reconciled on the electronic medical record. Tobacco screening was accomplished and smoking cessation was advised when indicated. BMI was noted and diet/exercise modification was recommended for all patients following outside normal parameters. [address] [address] PAIN MANAGEMENT CONSULTATION Name: SHANON TURNER MISAEL Room #: REG [facility] CenterFranco.#: [id number] Admission: 03/24/19 Attend Phys: Kandice Soares Discharge: Date of : 72 Report #: [id number] I reviewed with the patient today their responsibilities to safeguard prescription medications, reviewed their responsibility to utilize medications only as prescribed by the physician. They are to seek and receive pain medications only from 1 physician group ( [facility]). They are to use 1 pharmacy and keep the clinic informed if they change pharmacies. Their responsibilities include making followup visits in a timely fashion and to avoid abrupt discontinuation of medication usage. Their responsibilities further include bringing their medications (bottles from the pharmacy with residual pills) to the visit for possible confirmation of pill counts and the patient understands it is their responsibility to submit to random drug screens to ensure both that the medications prescribed are present, and that no other controlled substances are present. All prescriptions provided today were generated electronically. PLAN: 1. We discussed treatment options with the patient today. The patient feels like the decrease in her pain medicines, she is able to tolerate and doing quite well. She is averaging 2-3 of her opioid oxycodone per day. We will continue at 75 pills for the month. The patient feels that this is tolerable for her. Scripts given today for oxycodone IR 5 mg, #75. 2. The patient has lost 7 pounds since our last visit a month ago. She tells me that she continues her phentermine and she is now on Topamax for her migraines, encourage exercise and diet control as well. 3. The patient finds Flexeril very beneficial and we will renew that script for 10 mg #90 with one additional refill today. 4. The patient is seen in collaboration with Dr. Charan Whatley. The patient will follow up in 1 month. <ELECTRONICALLY SIGNED> By: Kandice Soares 03/25/19 0809 0915 2255 Kandice Soares /nt
== END ==
LOC: PAIN 06:44
DX: M54.16 Radiculopathy, lumbar region (principal); F32.9 Major depressive disorder, single episode, unspecified; Z79.891 Long term (current) use of opiate analgesic; G43.909 Migraine, unspecified, not intractable, without status migrainosus; Z86.73 Personal history of transient ischemic attack (TIA), and cerebral infarction without residual deficits; Z88.8 Allergy status to other drugs, medicaments and biological substances; Z79.899 Other long term (current) drug therapy

== ENCOUNTER → 2019-04-21 | Outpatient (CLI) | payer OTHER ==
[~2019-04-21] VITALS: Ht 154.9 cm; Wt 93.0 kg
[~2019-04-21] MED LIST changes: +ATROVENT HFA14 GM INH; +ESCITALOPRAM OX10 MG PO; +RIBOFLAVIN400 MG PO
[2019-04-21 09:19] VITALS: BP 129/81
--- NOTE | 2019-04-21 09:25 | NUR ---
Pain Clinic Assessment: 1. History of Osteoarthritis: SPINE JOINTS RIGHT HAND History of Rheumatoid Arthritis: Not Applicable 2. Height: 5 ft. 1 in. 154.9 cm. Weight: 205.0 lb. oz. 92.988 kg. Patient's BMI: 38.8 3. Vital Signs: BP: 129/81 Pulse: 90 Resp: 18 Temp: 02 Sat: 95 ECG Mon: 4. Pain Intensity: 7 5. Fall Risk: Dizziness: N Needs help standing or walking: N Fallen in the last 3 months: N Fall risk comments: FELL 2 WEEKS AGO ON ICE. DID NOT GO TO ER OR ANY DOC 6. Patient on Blood Thinner: None 7. History of Hypertension: Y 8. Opioid Therapy greater than 6 weeks: Y Opiate Contract Signed: 12/04/16 9. Risk Assessment Tool Provided: LOW-1 10. Functional Assessment Tool: 11. Recreational Drug Use: Past greater than 3 mos Drug Type: Tobacco Use: Former Smoker Tobacco Type: Amount or Packs/day: How Many Years: Alcohol Use: Yes Frequency: Quant:
--- NOTE | 2019-04-22 14:06 | HPC ---
[facility] [place] [address] PAIN MANAGEMENT CONSULTATION Name: SHANON TURNER Room #: REG [facility] M.R.#: [id number] Admission: 04/21/19 Attend Phys: Kandice Soares Discharge: Date of : 72 Report #: [id number] THIS REPORT FOR: //name// CC: Kandice Whatley MD Physician staff DATE OF SERVICE: 04/21/2019 CHIEF COMPLAINT: Low back pain, bilateral leg pain, and migraine headaches. HISTORY OF PRESENT ILLNESS: This is a pleasant 48-year-old female who returns to the Pain Clinic today for refill of her medications. She finds these very beneficial in controlling her low back pain and right leg pain. She tells me that her migraines are finally well maintained with Topamax and Imitrex. She rates her pain score of 7/10 today. Her pain is worse with weather changes, standing, driving, and sitting for too long. Her medications are helpful as well as relaxing and stretching. She denies any problems with constipation or daytime sleepiness. She finds that if she continues a diet high in fiber and drinks coffee, she keeps very regular despite her opioid use. She would like a refill of her medications today. ALLERGIES: IRON and CODEINE. CURRENT LIST OF MEDICATIONS: Atrovent inhaler, escitalopram 10 mg daily, phentermine 8 mg at bedtime, Flexeril p.r.n., oxycodone 5 mg 2-3 a day, sumatriptan 50 mg weekly, Topamax 50 mg b.i.d., Vyvanse 50 mg daily, Reglan 10 mg before meals, amlodipine 5 mg daily, Protonix 40 mg b.i.d., Drisdol ____ units daily, Coreg 12.5 mg b.i.d., Neurontin 400 mg t.i.d., calcium, multivitamin, and vitamin B12. THE PATIENT'S PQRS: 1. Has a history of osteoarthritis and multiple pain generators of spine, joints, hips and hands. Denies any rheumatoid arthritis. 2. Height is 5 feet 1 inch, weight is 205, BMI is 38. 3. Vital signs: Blood pressure 129/81, pulse is 90, respirations 18, oxygen sat is 95%. 4. Pain score is 7/10. 5. Denies dizziness, does not need help walking or standing, has not fallen in the last 3 months. 6. The patient is not on any blood thinners, but does take medicine for hypertension. 7. Opiate therapy is greater than 6 weeks; therefore, an opioid signed contract is on the chart. Risk assessment is low. Functional assessment is 52/70. [address] [address] PAIN MANAGEMENT CONSULTATION Name: SHANON TURNER MISAEL Room #: REG CLShira Salas#: [id number] Admission: 04/21/19 Attend Phys: Kandice Soares Discharge: Date of : 72 Report #: [id number] 8. Recreational drug use in the past. She is a former smoker and occasionally drinks alcohol. According to the prescription monitoring system, the patient is filling appropriately for her medications. She is due to fill those today. There is a recent drug screen on the chart as well. PHYSICAL EXAMINATION: GENERAL: This is a well-developed, well-nourished, obese 48-year-old female who appears her stated age, placing her current pain score at 7/10. HEENT: Normocephalic, atraumatic. Extraocular eye muscles are intact. Mucous membranes are moist. MUSCULOSKELETAL: Upper extremity strength judged to be 5/5 bilaterally. She walks with an antalgic gait. Her pain is located in the lumbar spine that radiates into her bilateral legs to her knees. She does use a cane for walking. ASSESSMENT: 1. Status post cerebrovascular incident. 2. Depression. 3. Right hip pain, status post surgery. 4. Low back pain with radiculopathy. 5. Migraines. 6. Management of high risk medications under terms of written opioid agreement. We reviewed the fact that opiate medications are being used to provide analgesia adequate to support activities of daily living, not attempting to achieve a specific pain score on the 0-10 Visual Analog Scale. The current opiate medications are providing sufficient analgesia to allow the patient to participate in activities of daily living. The patient is not exhibiting any aberrant behavior suggestive of drug diversion. The patient is not having any adverse reactions to medications. The patient is not suffering from daytime somnolence or mental acuity changes. The patient is managing opiate-induced constipation with appropriate llkt-ohe-qwgjlix agents and dietary considerations. The patient was counseled on concern for caution with operating a motor vehicle while using opiate medications. A physical exam was performed and the patient's functional status was evaluated. All patients with back pain were advised against the bed rest greater than 4 days and were advised to return to normal activities. Pain score assessment was noted and the treatment plan was reviewed with the patient. All current medications, both prescribed and OTC were reviewed and reconciled on the electronic medical record. Tobacco screening was accomplished and smoking cessation was advised when indicated. BMI was noted and diet/exercise modification was recommended for all patients following outside normal parameters. [address] [address] PAIN MANAGEMENT CONSULTATION Name: SHANON TURNER Room #: REG [facility]..#: [id number] Admission: 04/21/19 Attend Phys: Kandice FARHEEN Rodger Discharge: Date of : 72 Report #: [id number] I reviewed with the patient today their responsibilities to safeguard prescription medications, reviewed their responsibility to utilize medications only as prescribed by the physician. They are to seek and receive pain medications only from 1 physician group ( [facility]). They are to use 1 pharmacy and keep the clinic informed if they change pharmacies. Their responsibilities include making followup visits in a timely fashion and to avoid abrupt discontinuation of medication usage. Their responsibilities further include bringing their medications (bottles from the pharmacy with residual pills) to the visit for possible confirmation of pill counts and the patient understands it is their responsibility to submit to random drug screens to ensure both that the medications prescribed are present, and that no other controlled substances are present. All prescriptions provided today were generated electronically. PLAN: 1. We discussed treatment options with the patient today. The patient finds her oxycodone IR 5 mg very beneficial. Scripts given for #75. She is here on a monthly basis. No problems with any side effects reported. This also has a low morphine mEq of 20 per the CDC guidelines. 2. Flexeril is not needed today since she has plenty of refills and does take this sparingly. 3. The patient will return in 1 month; appointment made. The patient is seen in collaboration with Dr. Charan Whatley who did see the patient as well today. <ELECTRONICALLY SIGNED> By: Kandice Soares 04/22/19 1406 [id number] Kandice Soares /nt
== END ==
LOC: PAIN 06:56
DX: M54.16 Radiculopathy, lumbar region (principal); F32.9 Major depressive disorder, single episode, unspecified; M25.551 Pain in right hip; G43.909 Migraine, unspecified, not intractable, without status migrainosus; Z79.891 Long term (current) use of opiate analgesic; Z88.8 Allergy status to other drugs, medicaments and biological substances; Z79.899 Other long term (current) drug therapy

== ENCOUNTER → 2019-05-21 | Outpatient (CLI) | payer OTHER ==
[~2019-05-21] VITALS: Ht 154.9 cm; Wt 91.8 kg
[2019-05-21 08:33] VITALS: BP 143/88
--- NOTE | 2019-05-21 08:33 | NUR ---
Pain Clinic Assessment: 1. History of Osteoarthritis: SPINE JOINTS RIGHT HAND History of Rheumatoid Arthritis: Not Applicable 2. Height: 5 ft. 1 in. 154.9 cm. Weight: 202.4 lb. oz. 91.808 kg. Patient's BMI: 38.3 3. Vital Signs: BP: 143/88 Pulse: 95 Resp: Temp: 02 Sat: 98 ECG Mon: 4. Pain Intensity: 8 5. Fall Risk: Dizziness: Y Needs help standing or walking: N Fallen in the last 3 months: N Fall risk comments: FELL 2 WEEKS AGO ON ICE. DID NOT GO TO ER OR ANY DOC 6. Patient on Blood Thinner: None 7. History of Hypertension: Y 8. Opioid Therapy greater than 6 weeks: Y Opiate Contract Signed: 12/04/16 9. Risk Assessment Tool Provided: LOW-1 10. Functional Assessment Tool: 11. Recreational Drug Use: Past greater than 3 mos Drug Type: Tobacco Use: Former Smoker Tobacco Type: Amount or Packs/day: How Many Years: Alcohol Use: Yes Frequency: Monthly Quant:
--- NOTE | 2019-05-24 08:38 | HPC ---
[facility] [address] [place] [address] PAIN MANAGEMENT CONSULTATION Name: SHANON TURNER MISAEL Room #: REG [facility] Ma.#: [id number] Admission: 05/21/19 Attend Phys: Kandice Soares Discharge: Date of : 72 Report #: [id number] THIS REPORT FOR: //name// CC: Kandice WHATLEY Physician staff DATE OF SERVICE: 05/21/2019 CHIEF COMPLAINT: Low back pain, bilateral leg pain and migraine headaches. HISTORY OF PRESENT ILLNESS: This is a 48-year-old female who returns to the pain clinic today for refill of her medications. She reports that her pain score is 8/10 today, it is elevated due to changes in the weather which she said that have been making her migraines worse as well as her low back and right leg pain increase, but she is also having significant dental work performed and her mouth has been hurting significantly since last week. Her normal pain is worse with cold weather, standing, driving that the medications are usually more beneficial as well as relaxing and stretching techniques. She denies any problems with constipation or overmedicated feeling from her medications. She is needing refills today. The patient does report that she would like a copy of her contract to bring to her dental office of her opioid agreement, so when she has her next dental work done on 06/11/2019 and they do offer her hydrocodone, she can provide that contract to them. She will call us if they provide her with another hydrocodone script as well. ALLERGIES: IRON AND CODEINE. CURRENT LIST OF MEDICATIONS: Riboflavin 400 mg daily, OxyIR 5 mg up to 2-3 times a day, escitalopram 10 mg, phentermine 8 mg, Flexeril 10 mg, Imitrex increasing dose. Topamax 200 mg, Vyvanse 70 mg, Reglan 10 mg, amlodipine 5 mg, Protonix 40 mg b.i.d., Drysol weekly, carvedilol 12.5 mg b.i.d., gabapentin 400 mg t.i.d., calcium, multivitamin and vitamin B12. PATIENT'S PQRS: 1. She has a history of osteoarthritis with multiple pain generators of spine, hips, hands and knees. Denies any rheumatoid arthritis. 2. Height is 5 feet 1 inch, weight is 202, down 3 pounds in this past month. BMI is 38. 3. Vital signs: 143/88, pulse is 95, respirations 16, oxygen sat is 98. 4. Pain score is 8/10. 5. Complains of dizziness, does use a cane occasionally, has not fallen in the last 3 months. 6. The patient is not on any blood thinners, [place] [address] PAIN MANAGEMENT CONSULTATION Name: SHANON TURNER MISAEL Room #: REG CL Josue#: [id number] Admission: 05/21/19 Attend Phys: Kandice Soares Discharge: Date of : 72 Report #: [id number] hypertension. 7. Opiate therapy is greater than 6 weeks; therefore, an opiate signed contract is on the chart. Risk assessment tool is low. Functional assessment is 52/70. 8. Recreational drug use in the past. She is a former smoker and occasionally drinks alcohol. According to the prescription monitoring system, the patient is filling appropriately for her medications. She is due today to have those filled again. There is a recent drug screen on the chart as well. PHYSICAL EXAMINATION: GENERAL: This is a well-developed, well-nourished, obese 48-year-old female who appears her stated age, placing her current pain score at 8/10. HEENT: Normocephalic, atraumatic. Extraocular eye muscles are intact. She has painful mouth on her right side due to recent dental work. She has a migraine headache in the temporal part of her head today. MUSCULOSKELETAL: Upper extremity strength judged to be 5/5. She walks with an antalgic gait. She has tenderness in the lumbar spine that radiates into her bilateral legs to her knees, does use a cane for ambulation. ASSESSMENT: 1. Status post cerebrovascular incident. 2. Depression. 3. Right hip pain, status post surgery. 4. Low back pain with radiculopathy. 5. Migraines. 6. Management of high risk medications under terms of written opioid agreement. We reviewed the fact that opiate medications are being used to provide analgesia adequate to support activities of daily living, not attempting to achieve a specific pain score on the 0-10 Visual Analog Scale. The current opiate medications are providing sufficient analgesia to allow the patient to participate in activities of daily living. The patient is not exhibiting any aberrant behavior suggestive of drug diversion. The patient is not having any adverse reactions to medications. The patient is not suffering from daytime somnolence or mental acuity changes. The patient is managing opiate-induced constipation with appropriate ykvu-pbk-kxhtxxr agents and dietary considerations. The patient was counseled on concern for caution with operating a motor vehicle while using opiate medications. A physical exam was performed and the patient's functional status was evaluated. All patients with back pain were advised against the bed rest greater than 4 days and were advised to return to normal activities. Pain score assessment was noted and the treatment plan was reviewed with the patient. All current medications, both prescribed and OTC were reviewed and reconciled on the electronic medical record. Tobacco screening was accomplished and smoking [facility] [address] [place] [address] PAIN MANAGEMENT CONSULTATION Name: SHANON TURNER MISAEL Room #: REG CL M..#: [id number] Admission: 05/21/19 Attend Phys: Kandice Soarse Discharge: Date of : 72 Report #: [id number] cessation was advised when indicated. BMI was noted and diet/exercise modification was recommended for all patients following outside normal parameters. I reviewed with the patient today their responsibilities to safeguard prescription medications, reviewed their responsibility to utilize medications only as prescribed by the physician. They are to seek and receive pain medications only from 1 physician group ( [facility]). They are to use 1 pharmacy and keep the clinic informed if they change pharmacies. Their responsibilities include making followup visits in a timely fashion and to avoid abrupt discontinuation of medication usage. Their responsibilities further include bringing their medications (bottles from the pharmacy with residual pills) to the visit for possible confirmation of pill counts and the patient understands it is their responsibility to submit to random drug screens to ensure both that the medications prescribed are present, and that no other controlled substances are present. All prescriptions provided today were generated electronically. PLAN: 1. We discussed treatment options with the patient today. The patient continues on her phentermine and has lost 3 pounds in the past month. This is a slow steady decrease of her weight. I encouraged the patient to continue this and to be as active as possible and to watch her diet. 2. The patient is having significant dental work done. The dentist did give her a prescription of hydrocodone that the pharmacy would not fill last week. She has made due with her oxycodone. I instructed her at her next appointment with a dentist to call us with the medications, so we may enter it in the chart. She was also given a copy of her written opioid agreement. If the pharmacy is not willing to fill that medication, they are instructed to call us, so we can override it. They would not fill a prescription from another provider since they know that Dr. Whatley gives her medicine, which I explained to the patient. They are doing their job, they did the right thing that we would okay to override. 3. Scripts given today for her oxycodone IR 5 mg, #75 for today fill, patient is not needing her Flexeril refilled today. 4. Appointment made for 1 month. The patient is seen in collaboration with Dr. Charan Whatley who did see the patient as well today. <ELECTRONICALLY SIGNED> By: Kandice Soares 05/24/19 0838 [id number] Kandice Soares /leah
== END ==
LOC: PAIN 06:48
DX: M54.16 Radiculopathy, lumbar region (principal); F32.9 Major depressive disorder, single episode, unspecified; G43.909 Migraine, unspecified, not intractable, without status migrainosus; Z79.891 Long term (current) use of opiate analgesic; Z86.73 Personal history of transient ischemic attack (TIA), and cerebral infarction without residual deficits

== ENCOUNTER → 2019-06-16 | Outpatient (CLI) | payer OTHER ==
[~2019-06-16] VITALS: Ht 154.9 cm; Wt 90.9 kg
[2019-06-16 08:38] VITALS: BP 130/90
--- NOTE | 2019-06-16 08:43 | NUR ---
Pain Clinic Assessment: 1. History of Osteoarthritis: SPINE JOINTS RIGHT HAND History of Rheumatoid Arthritis: Not Applicable 2. Height: 5 ft. 1 in. 154.9 cm. Weight: 200.4 lb. oz. 90.901 kg. Patient's BMI: 37.9 3. Vital Signs: BP: 130/90 Pulse: 93 Resp: 16 Temp: 02 Sat: 100 ECG Mon: 4. Pain Intensity: 8 5. Fall Risk: Dizziness: N Needs help standing or walking: N Fallen in the last 3 months: N Fall risk comments: FELL 2 WEEKS AGO ON ICE. DID NOT GO TO ER OR ANY DOC 6. Patient on Blood Thinner: None 7. History of Hypertension: Y 8. Opioid Therapy greater than 6 weeks: Y Opiate Contract Signed: 12/04/16 9. Risk Assessment Tool Provided: LOW-1 10. Functional Assessment Tool: 11. Recreational Drug Use: Never Drug Type: Tobacco Use: Former Smoker Tobacco Type: Cigarettes Amount or Packs/day: 1/4 PACK How Many Years: 1 Alcohol Use: Yes Frequency: Special Occasions Quant: WINE
--- NOTE | 2019-06-16 13:34 | HPC ---
[facility] [address] [place] [address] PAIN MANAGEMENT CONSULTATION Name: SHANON TURNER Room #: REG [facility] M.R.#: [id number] Admission: 06/16/19 Attend Phys: Kandice Soares Discharge: Date of : 72 Report #: [id number] THIS REPORT FOR: //name// CC: Kandice Whatley MD Physician staff DATE OF SERVICE: 06/16/2019 CHIEF COMPLAINT: Low back pain, bilateral leg pain and migraine headaches. HISTORY OF PRESENT ILLNESS: This is a 48-year-old female who returns to the pain clinic today for refill of her medications that she uses to help treat her ongoing low back pain. She finds this medication beneficial, though she is rating her pain at 8/10 today. She also suffers from right leg pain and left knee pain. These are aching, throbbing per her report. Her pain is exacerbated by cold, standing and sitting too long. The medication as well as relaxing techniques and stretching techniques are very beneficial. She denies any problems with constipation or daytime sleepiness. She also reports that she feels her migraines are better under control, working with her neurologist. She has been increasing her Topamax slowly and finds this helpful as well. Today, she would like refills of her oxycodone. ALLERGIES: IRON AND CODEINE. CURRENT LIST OF MEDICATIONS: OxyIR 5 mg 2-3 tablets a day, riboflavin, escitalopram, phentermine, Flexeril p.r.n., Imitrex, Topamax 75 mg b.i.d., Vyvanse 70 mg daily, Reglan, amlodipine, Protonix, Drisdol, Coreg, gabapentin, calcium, multivitamin and vitamin B12. PQRS: 1. She has osteoarthritis in her hands, spine and knees. Denies any rheumatoid arthritis. 2. Height is 5 feet 1 inch, weight is 200, which is down 2 pounds from her last visit. BMI is 37.9. 3. Vital signs: 130/90, pulse is 93, respirations 16, oxygen sat is 100. 4. Pain score is 8/10. 5. Denies dizziness. She uses a cane for walking and standing. She has not fallen in the last 3 months. 6. The patient is not on any blood thinners, but does take medicine for hypertension. 7. Opiate therapy is greater than 6 weeks; therefore, an opiate signed contract is on the chart. 8. Risk assessment tool is low. [address] [address] PAIN MANAGEMENT CONSULTATION Name: SHANON TURNER MISAEL Room #: REG [facility].#: [id number] Admission: 06/16/19 Attend Phys: Kandice Soares Discharge: Date of : 72 Report #: [id number] 9. Functional assessment is 52/70. 10. Recreational drug use, she denies. She is a current smoker of cigarettes and occasionally drinks alcohol. According to the prescription monitoring system, the patient is filling her opioid medications appropriately in a timely fashion from Dr. Whatley with no apparent aberrant fills. There is a recent drug screen on the chart that is positive for her medications that we prescribed. PHYSICAL EXAMINATION: GENERAL: This is alert and orientated, well-developed, well-nourished, obese 48-year-old female, placing her current pain score at 8/10 today. HEENT: Normocephalic, atraumatic. Extraocular eye muscles are intact. Mucous membranes are moist. MUSCULOSKELETAL: She walks without antalgic gait using a cane at all times. She has tenderness in her lumbar spine that radiates into her bilateral legs down to her knees at times. Her lower extremity strength judged to be 5/5 in all major muscle groups. ASSESSMENT: 1. Status post cerebrovascular incident. 2. Depression. 3. Right hip pain, status post surgery. 4. Low back pain with radiculopathy. 5. Migraines. 6. Management of high risk medications under terms of written opioid agreement. We reviewed the fact that opiate medications are being used to provide analgesia adequate to support activities of daily living, not attempting to achieve a specific pain score on the 0-10 Visual Analog Scale. The current opiate medications are providing sufficient analgesia to allow the patient to participate in activities of daily living. The patient is not exhibiting any aberrant behavior suggestive of drug diversion. The patient is not having any adverse reactions to medications. The patient is not suffering from daytime somnolence or mental acuity changes. The patient is managing opiate-induced constipation with appropriate itfm-hze-nygxcbc agents and dietary considerations. The patient was counseled on concern for caution with operating a motor vehicle while using opiate medications. PLAN: 1. We discussed treatment options with the patient today. The patient continues to find her oxycodone beneficial in controlling her pain. 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 I explained to her if we [facility] [address] [place] [address] PAIN MANAGEMENT CONSULTATION Name: SHANON TURNER Room #: ARA Salas#: [id number] Admission: 06/16/19 Attend Phys: Kandice Soares Discharge: Date of : 72 Report #: [id number] do it slowly allows her body time to adjust, we will not decrease her again until July. At that time, we will decrease her to 60 pills from 75 per month. The patient is reluctant, but verbalizes understanding. Today, we will continue her oxycodone 5 mg, #75. Scripts given to her today for 1 month. 2. We will continue her Flexeril, which she finds beneficial in reducing her muscle spasms in her back and legs. She takes these sparingly 1-2 times a day. These are e-scribe to her [facility] with one additional refill. 3. Dr. Charan Whatley did see the patient today and collaborated care. She will see him back in 1 month. <ELECTRONICALLY SIGNED> By: Kandice Soares 06/16/19 1334 [id number] Kandice Soares /leah
== END ==
LOC: PAIN 06:40
DX: M54.5 Low back pain (principal); M79.604 Pain in right leg; M79.605 Pain in left leg; F32.9 Major depressive disorder, single episode, unspecified; G43.909 Migraine, unspecified, not intractable, without status migrainosus; Z79.891 Long term (current) use of opiate analgesic

== ENCOUNTER → 2019-07-09 | Outpatient (CLI) | payer OTHER ==
[~2019-07-09] VITALS: Ht 154.9 cm; Wt 91.2 kg
[~2019-07-09] MED LIST changes: +CARAFATE1 GM PO; +MEDROLDOSEPACK PO
[2019-07-09 09:46] VITALS: BP 139/87
--- NOTE | 2019-07-09 09:52 | NUR ---
Pain Clinic Assessment: 1. History of Osteoarthritis: SPINE JOINTS RIGHT HAND History of Rheumatoid Arthritis: Not Applicable 2. Height: 5 ft. 1 in. 154.9 cm. Weight: 201.0 lb. oz. 91.173 kg. Patient's BMI: 38.0 3. Vital Signs: BP: 139/87 Pulse: 90 Resp: 17 Temp: 02 Sat: 97 ECG Mon: 4. Pain Intensity: 6 5. Fall Risk: Dizziness: N Needs help standing or walking: N Fallen in the last 3 months: N Fall risk comments: FELL 2 WEEKS AGO ON ICE. DID NOT GO TO ER OR ANY DOC 6. Patient on Blood Thinner: None 7. History of Hypertension: Y 8. Opioid Therapy greater than 6 weeks: Y Opiate Contract Signed: 12/04/16 9. Risk Assessment Tool Provided: LOW-1 10. Functional Assessment Tool: 11. Recreational Drug Use: Never Drug Type: Tobacco Use: Former Smoker Tobacco Type: Amount or Packs/day: How Many Years: Alcohol Use: Yes Frequency: Special Occasions Quant: 1 GLASS WINE
--- NOTE | 2019-07-20 14:24 | HPC ---
[facility] [address] [place] [address] PAIN MANAGEMENT CONSULTATION Name: SHANON TURNER Room #: REG ESTHER M.R.#: [id number] Admission: 07/09/19 Attend Phys: Willy Whatley MD Discharge: Date of : 72 Report #: [id number] THIS REPORT FOR: //name// CC: JOSSY Whatley Physician staff Oneil Bond MD DATE OF SERVICE: 07/14/2019 CHIEF COMPLAINT: "I am thinking about going on an overseas mission." HISTORY: The patient is a 49-year-old female who has been followed in the pain clinic. As you recall, she has chronic pain. She has noted some pain in her back, joints and hands. She feels that she has wltt-rb-xpjg pain. She has been decreasing her opioid medications over the last few visits. She feels that she has noted increasing pain. She feels that her medications are helpful and lowering them more at this juncture continues to decrease her ability to engage in activities of daily living. She does not have any problems with the medications. She feels that they are beneficial. She is considering going overseas to help others. Does have pain in her left knee, which she rates as a 6-7. She does have some pain and discomfort in the low back area and sciatic pain. ALLERGIES: IRON AND CODEINE. CURRENT MEDICATIONS: OxyIR 5 mg 2-3 tablets daily, riboflavin, escitalopram, phentermine, Flexeril, Imitrex, Topamax 75 mg b.i.d., Vyvanse 70 mg, Reglan, amlodipine, Protonix, Drisdol, Coreg, gabapentin, calcium, multivitamins, ____. PAIN CLINIC ASSESSMENT AND PQRS: 1. The patient has osteoarthritis in her hands, spine and knees. She denies any rheumatoid arthritis. 2. Height 5 feet 1 inch, weight 201 pounds, BMI is 38. 3. Vital signs: Blood pressure 139/87, pulse 90, respiratory rate 17, room air saturation 97%. 4. Pain intensity 12/28. 5. Fall history: The patient fell 2 weeks ago on the ice. She did not go to the Emergency Room or seek medical attention. 6. Blood thinner. The patient is not on a blood thinning medication. 7. Hypertension. The patient is being treated for hypertension. 8. Opioids greater than 6 weeks. The patient receives medication from one source, pain clinic. 9. Risk assessment tool, low for opioid use. 10. Functional assessment tool . 11. Recreational drug use: [place] [address] PAIN MANAGEMENT CONSULTATION Name: SHANON TURNER MISAEL Room #: REG [facility] Francesca.#: [id number] Admission: 07/09/19 Attend Phys: Willy Whatley MD Discharge: Date of : 72 Report #: [id number] 12. Tobacco: The patient is a former smoker. 13. Alcohol: The patient occasionally drinks a glass of wine. PHYSICAL EXAMINATION: GENERAL: The patient is a well-developed, well-nourished black female, appears her stated age. She is alert and oriented x 3. Her affect is appropriate. Speech is much improved. There is a little stuttering at this juncture. She ____. HEENT: Normocephalic, atraumatic. Extraocular eye muscles intact. ABDOMEN: Protuberant. Bowel sounds present. HEART: Regular rate. MUSCULOSKELETAL: Upper extremity muscle strength is 4+/5. Lower extremity muscle strength 5-/5. The patient has slight antalgic gait. IMPRESSION: 1. Status post cerebrovascular accident with transient ischemic attack changes compatible with stuttering, which has improved. 2. Depression. 3. Acid reflux. 4. Chronic pernicious anemia related to gastric bypass. 5. Right hip pain, status post surgery on the right hip. 6. Medical management of her pain with complex medications of opioids. RECOMMENDATIONS: We discussed treatment options with the patient. At this juncture, she feels that the medications continue to be helpful. Her speech has improved and is less stuttering since I saw her last. She has desire to go overseas to help in a humanitarian effort. She is having more pain in her hip. She has had a hip replacement. Feels that she is having vukk-je-ldvz pain. She has tried to tolerate decreasing her opioid medications. She feels that she is at a level where she ____ that she needs to maintain at this level. Feels that lowering it can cause more and more pain and discomfort. She is less active as a result. We will continue with her current medication at its current level. We will make adjustments as time goes on. The patient will call us if she has any concerns. We would like to thank you for letting us participate in her care. A script for her medications, which include a Medrol Dosepak, OxyIR 5 mg 1 p.o. b.i.d. to t.i.d., Flexeril 10 mg 1 p.o. b.i.d. have been rewritten. She will call us if she has any concerns. We would like to thank you for letting us participate in her care. We hope she continues to improve. <ELECTRONICALLY SIGNED> By: Willy Whatley MD 07/20/19 1424 [id number] [id number] Willy Whatley MD /[facility]
== END ==
LOC: PAIN 06:41
DX: M25.551 Pain in right hip (principal); F32.9 Major depressive disorder, single episode, unspecified; K21.9 Gastro-esophageal reflux disease without esophagitis

== ENCOUNTER → 2019-08-04 | Outpatient (CLI) | payer OTHER ==
[~2019-08-04] VITALS: Ht 154.9 cm; Wt 90.0 kg
[2019-08-04 09:25] VITALS: BP 144/91
--- NOTE | 2019-08-04 09:41 | NUR ---
Pain Clinic Assessment: 1. History of Osteoarthritis: SPINE JOINTS RIGHT HAND History of Rheumatoid Arthritis: Not Applicable 2. Height: 5 ft. 1 in. 154.9 cm. Weight: 198.4 lb. oz. 89.994 kg. Patient's BMI: 37.5 3. Vital Signs: BP: 144/91 Pulse: 119 Resp: 20 Temp: 02 Sat: 100 ECG Mon: 4. Pain Intensity: 7 5. Fall Risk: Dizziness: N Needs help standing or walking: Y Fallen in the last 3 months: N Fall risk comments: FELL 2 WEEKS AGO ON ICE. DID NOT GO TO ER OR ANY DOC 6. Patient on Blood Thinner: None 7. History of Hypertension: Y 8. Opioid Therapy greater than 6 weeks: Y Opiate Contract Signed: 12/04/16 9. Risk Assessment Tool Provided: LOW-1 10. Functional Assessment Tool: 11. Recreational Drug Use: Never Drug Type: Tobacco Use: Former Smoker Tobacco Type: Amount or Packs/day: How Many Years: Alcohol Use: Yes Frequency: Weekly Quant: 1
--- NOTE | 2019-08-05 09:09 | HPC ---
[facility] [address] [address] PAIN MANAGEMENT CONSULTATION Name: SHANON TURNER Room #: REG [facility] Francesca.#: [id number] Admission: 08/04/19 Attend Phys: Kandice Soares Discharge: Date of : 72 Report #: [id number] THIS REPORT FOR: //name// CC: Kandice Bond MD DATE OF SERVICE: 08/04/2019 CHIEF COMPLAINT: Chronic back pain. HISTORY OF PRESENT ILLNESS: This is a 49-year-old female who returns to the pain clinic for refill of her medications that she uses to help treat her chronic ongoing back and leg pain. She feels that her medications are beneficial, stating her pain score is 7/10. She feels that the Medrol Dosepak that Dr. Sonu Whatley prescribed her in June was beneficial in reducing some of inflammation. She reports that her most significant pain is her sciatic pain involving her left hip. The patient does report it is an aching, throbbing feeling, worse with any standing or driving or prolonged sitting. She is using a cane today. She feels that relaxing using stretching techniques and her medications have been beneficial. She denies problems with constipation. She does experience some nausea. She does not feel that is related to her opioid intake and does have some medicines that she has been recently prescribed to help with that. The patient is still thinking about going overseas to do mission work, but has put a hold on the process until she is able to take more language courses. ALLERGIES: IRON and CODEINE. CURRENT LIST OF MEDICATIONS: OxyIR 5 mg p.r.n., Flexeril, Carafate, riboflavin, escitalopram, Lomaira, sumatriptan, Topamax, Vyvanse, Reglan, Norvasc, Protonix, Drisdol, Coreg, gabapentin, calcium with vitamin D, multivitamin and vitamin B12. PQRS: 1. She has osteoarthritic changes in her hands, spines and knees. Denies rheumatoid arthritis. 2. Height is 5 feet 1 inch, weight is 198, BMI is 37. 3. Vital signs; 144/91, pulse is 119, respirations 20, oxygen sat is 100%. 4. Pain score 7/10. 5. Denies dizziness. Does use a cane for ambulation, has not fallen in the last 3 months. 6. The patient is not on any blood thinners, but does take medicine for hypertension. Her opioid therapy is greater than 6 weeks; therefore, an opioid signed contract is on the chart. Risk assessment tool is low. Functional [address] [address] PAIN MANAGEMENT CONSULTATION Name: SHANON TURNER MISAEL Room #: REG ESTHER Ma.#: [id number] Admission: 08/04/19 Attend Phys: Kandice Soares Discharge: Date of : 72 Report #: [id number] assessment is . 7. Recreational drug use, she denies is a former smoker and occasionally drinks alcohol. According to the prescription monitoring system, her last fill of her medications was 07/13/2019. She will be due in 1 weeks' time for her medications. PHYSICAL EXAMINATION: GENERAL: This is a well-developed, well-nourished, slightly obese female who appears her stated age. Her affect is appropriate. HEENT: Normocephalic, atraumatic. Extraocular eye muscles are intact. ABDOMEN: Protuberant. Bowel sounds present. MUSCULOSKELETAL: Upper extremity strength judged to be 4/5 and lower extremity strength judged to be 5/5. She does have a slightly antalgic gait. Complains of pain that radiates from her lumbar spine down her bilateral legs following the L4-5 dermatomal distribution. IMPRESSION: 1. Status post cerebrovascular accident with transient ischemic attack. 2. Depression. 3. Right hip pain, status post surgery. 4. Chronic low back pain. 5. Management of medications under terms of written opioid agreement. We reviewed the fact that opiate medications are being used to provide analgesia adequate to support activities of daily living, not attempting to achieve a specific pain score on the 0-10 Visual Analog Scale. The current opiate medications are providing sufficient analgesia to allow the patient to participate in activities of daily living. The patient is not exhibiting any aberrant behavior suggestive of drug diversion. The patient is not having any adverse reactions to medications. The patient is not suffering from daytime somnolence or mental acuity changes. The patient is managing opiate-induced constipation with appropriate skve-afw-fljwfge agents and dietary considerations. The patient was counseled on concern for caution with operating a motor vehicle while using opiate medications. PLAN: 1. We discussed treatment options with the patient today. The patient finds her oxycodone beneficial in controlling her pain, we will refill 1 month quantity #75 tablets. The patient is not needing this medication for 1 week, so we will adjust her next appointment closer to her refill date. 2. She is not needing cyclobenzaprine today. She has plenty of refills. She finds that medication helpful when she has increased spasms. [facility] [address] [place] [address] PAIN MANAGEMENT CONSULTATION Name: SHANON TURNER Room #: ARA MaJennifer#: [id number] Admission: 08/04/19 Attend Phys: Kandice Soares Discharge: Date of : 72 Report #: [id number] 3. The patient is seen in collaboration with Dr. Charan Whatley who saw the patient as well today. <ELECTRONICALLY SIGNED> By: Kandice Soares 08/05/19 0909 1009 Kandice Soares /leah
== END ==
LOC: PAIN 06:47
DX: M25.551 Pain in right hip (principal); M54.5 Low back pain; F32.9 Major depressive disorder, single episode, unspecified; Z79.891 Long term (current) use of opiate analgesic

== ENCOUNTER → 2019-09-08 | Outpatient (CLI) | payer OTHER ==
[~2019-09-08] VITALS: Ht 154.9 cm; Wt 91.2 kg
[~2019-09-08] MED LIST changes: +ACID CONTROLLER20 MG PO; +LORATIDINE 10 M10 M1 PO
[2019-09-08 09:22] VITALS: BP 127/80
--- NOTE | 2019-09-08 09:24 | NUR ---
Pain Clinic Assessment: 1. History of Osteoarthritis: SPINE JOINTS RIGHT HAND History of Rheumatoid Arthritis: NONE 2. Height: 5 ft. 1 in. 154.9 cm. Weight: 201.0 lb. oz. 91.173 kg. Patient's BMI: 38.0 3. Vital Signs: BP: 127/80 Pulse: 96 Resp: 14 Temp: 02 Sat: 97 ECG Mon: 4. Pain Intensity: 8 5. Fall Risk: Dizziness: N Needs help standing or walking: N Fallen in the last 3 months: N Fall risk comments: FELL 2 WEEKS AGO ON ICE. DID NOT GO TO ER OR ANY DOC 6. Patient on Blood Thinner: None 7. History of Hypertension: Y 8. Opioid Therapy greater than 6 weeks: Y Opiate Contract Signed: 12/04/16 9. Risk Assessment Tool Provided: LOW-1 10. Functional Assessment Tool: 11. Recreational Drug Use: Never Drug Type: Tobacco Use: Former Smoker Tobacco Type: Amount or Packs/day: How Many Years: Alcohol Use: No Frequency: Quant:
--- NOTE | 2019-09-09 10:13 | HPC ---
[facility] [address] [place] [address] PAIN MANAGEMENT CONSULTATION Name: SHANON TURNER Room #: REG [facility] M..#: [id number] Admission: 09/08/19 Attend Phys: Kandice Soares Discharge: Date of : 72 Report #: [id number] THIS REPORT FOR: cc: JOSSY WHATLEY MD Physician not on staff Kandice Soares ~ THIS REPORT FOR: //name// CC: Kandice WHATLEY Physician staff DATE OF SERVICE: 09/08/2019 CHIEF COMPLAINT: Chronic back pain. HISTORY OF PRESENT ILLNESS: This is a pleasant 49-year-old female who returns to the pain clinic today for refill of her medications. She reports that she has [facility] For the last 5 weeks, she was having increased pain all over in her joints and they determined that she was deficient in iron. She continues to have treatments on a weekly basis. She is hopeful that this will help with her energy and some of her pain. Today, though she is reporting a pain score of 8/10 in her back, hips, left knee and right leg. There is a throbbing, constant achy pain that is worse with activity. She feels the medication as well as stretching and relaxing are beneficial. She denies any problems with constipation or daytime sleepiness. The patient reports she uses her cane at all times. Today, she would like refills of her oxycodone that Dr. Whatley prescribes for her. ALLERGIES: IRON, VENOFER AND CODEINE. CURRENT LIST OF MEDICATIONS: Claritin, Pepcid, OxyIR 5 mg p.r.n., Flexeril 10 mg b.i.d., Carafate, riboflavin, escitalopram, phentermine, sumatriptan, Topamax, Vyvanse, Reglan, Norvasc, Protonix, Drisdol, Coreg, Neurontin, calcium, multivitamin and vitamin B12. PQRS: 1. She has arthritic changes in her hands, spines and knees. Denies rheumatoid arthritis. 2. Height is 5 feet 1 inch, weight is 201. BMI is 38. 3. Vital Signs: 127/80, pulse is 96, respirations 14, oxygen sat is 97. 4. Pain score is 8/10. 5. Denies dizziness, does not need help walking, although she uses a cane for walking and standing, has not fallen in the last 3 months. 6. The patient is not on any blood thinners, but does have a [place] [address] PAIN MANAGEMENT CONSULTATION Name: SHANON TURNER MISAEL Room #: REG [facility] M.R.#: [id number] Admission: 09/08/19 Attend Phys: Kandice Soares Discharge: Date of : 72 Report #: [id number] 7. Opioid therapy is greater than 6 weeks; therefore, an opioid signed contract is on the chart. Risk assessment tool is low. Functional assessment is 52/70. 8. Recreational drug use, she denies. She is not a former smoker and does not drink alcohol. According to the prescription monitoring system, the patient is due to fill her medications, filling them appropriately from Dr. Whatley, her morphine mEq according to the CDC guidelines is 22. PHYSICAL EXAMINATION: GENERAL: This is a well-developed, well-nourished, obese 49-year-old female who is rating her pain score today at 8/10. HEENT: Normocephalic, atraumatic. Pupils equal, reactive. ABDOMEN: Protuberant. Bowel sounds are present. MUSCULOSKELETAL: Complains of pain that radiates from her lumbar spine down her right leg, has tenderness in her left knee. Upper extremity strength judged to be 4/5 and lower extremity strength judged to be 5/5 in all major muscle groups. She has an antalgic gait, uses a cane at all times. IMPRESSION: 1. Status post cerebrovascular incident with transient ischemic attack. 2. Depression. 3. Right hip pain, status post surgery. 4. Chronic low back pain. 5. Management of medications under terms of written opioid agreement. We reviewed the fact that opiate medications are being used to provide analgesia adequate to support activities of daily living, not attempting to achieve a specific pain score on the 0-10 Visual Analog Scale. The current opiate medications are providing sufficient analgesia to allow the patient to participate in activities of daily living. The patient is not exhibiting any aberrant behavior suggestive of drug diversion. The patient is not having any adverse reactions to medications. The patient is not suffering from daytime somnolence or mental acuity changes. The patient is managing opiate-induced constipation with appropriate pnuz-gyg-hmhawnl agents and dietary considerations. The patient was counseled on concern for caution with operating a motor vehicle while using opiate medications. PLAN: 1. We discussed treatment options with the patient today. The patient is requesting refills of her OxyIR 5 mg. We provide 75 pills for 1 month. The patient takes these as needed. Dr. Whatley will write the prescription for 1 month for this medication. 2. I will refill her Flexeril 10 mg, the patient takes this twice a day, #60 with one additional refill, will be sent electronically to her [facility]. 3. The patient is complaining of some gum pain at the end of our discussion [address] [place] [address] PAIN MANAGEMENT CONSULTATION Name: SHANON TURNER MISAEL Room #: REG ESTHER Ma.#: [id number] Admission: 09/08/19 Attend Phys: Kandice Soares Discharge: Date of : 72 Report #: [id number] today. She reports she recently had some dental work done. I encouraged her to call that doctor. She did not get any pain pills from the dentist. I explained that maybe they would put her on an anti-inflammatory if her pain continues, but I encouraged her to call them today. 4. The patient is seen in collaboration with Dr. Charan Whatley. <ELECTRONICALLY SIGNED> By: Kandice Soares 09/09/19 1013 1022 1109 Kandice Soares /leah
== END ==
LOC: PAIN 06:38
DX: M25.551 Pain in right hip (principal); M54.5 Low back pain; G89.29 Other chronic pain; F32.9 Major depressive disorder, single episode, unspecified; Z79.891 Long term (current) use of opiate analgesic; Z79.899 Other long term (current) drug therapy; Z88.5 Allergy status to narcotic agent; Z88.8 Allergy status to other drugs, medicaments and biological substances; Z86.73 Personal history of transient ischemic attack (TIA), and cerebral infarction without residual deficits

== ENCOUNTER → 2019-10-06 | Outpatient (CLI) | payer OTHER ==
[~2019-10-06] VITALS: Ht 154.9 cm; Wt 92.9 kg
[~2019-10-06] MED LIST changes: +VENOFER20 MG/ML IV
[2019-10-06 09:51] VITALS: BP 112/74
--- NOTE | 2019-10-06 10:00 | NUR ---
Pain Clinic Assessment: 1. History of Osteoarthritis: SPINE JOINTS RIGHT HAND History of Rheumatoid Arthritis: NONE 2. Height: 5 ft. 1 in. 154.9 cm. Weight: 204.8 lb. oz. 92.897 kg. Patient's BMI: 38.7 3. Vital Signs: BP: 112/74 Pulse: 92 Resp: 16 Temp: 02 Sat: 100 ECG Mon: 4. Pain Intensity: 6 5. Fall Risk: Dizziness: N Needs help standing or walking: N Fallen in the last 3 months: N Fall risk comments: FELL 2 WEEKS AGO ON ICE. DID NOT GO TO ER OR ANY DOC 6. Patient on Blood Thinner: None 7. History of Hypertension: Y 8. Opioid Therapy greater than 6 weeks: Y Opiate Contract Signed: 12/04/16 9. Risk Assessment Tool Provided: LOW-1 10. Functional Assessment Tool: 11. Recreational Drug Use: Never Drug Type: Tobacco Use: Former Smoker Tobacco Type: Amount or Packs/day: How Many Years: Alcohol Use: No Frequency: Quant:
--- NOTE | 2019-10-15 08:21 | HPC ---
[facility] [place] [address] PAIN MANAGEMENT CONSULTATION Name: SHANON TURNER Room #: REG ESTHER M.Andrey.#: [id number] Admission: 10/06/19 Attend Phys: Willy Whatley MD Discharge: Date of : 72 Report #: [id number] THIS REPORT FOR: cc: JOSSY WHATLEY MD Physician not on staff Willy Whatley MD ~ CC: JOSSY Whatley Physician staff Oneil Bond MD DATE OF SERVICE: 10/06/2019 CHIEF COMPLAINT: Continued low back pain, hip and leg pain. HISTORY: The patient is a 49-year-old female who has been followed in the pain clinic. As you recall, she has back pain, joint pain and hand pain. She feels that she has ufsh-hl-arri pain. She has been using opioid medications to help with her pain. She is followed by her oncologist. She states that she is taking infusions on a weekly basis. These infusions cause increased pain and discomfort, particularly in her joints. She finds that the medications also enable her to stay more active. She has pain in her right leg and both hips, in the low back area as well as in her left knee. She notes the pain is exacerbated when she is climbing stairs, driving, experiencing cold weather. Finds that her medications can be helpful as well as lying down relaxing and stretching. She tries to stay as active as possible. ALLERGIES: IRON AND CODEINE. CURRENT MEDICATIONS: OxyIR 5 mg 2-3 tablets daily, riboflavin, escitalopram, phentermine, Flexeril, Imitrex, Topamax b.i.d., Vyvanse 70 mg, Reglan, amlodipine, Protonix, Drisdol, Coreg, gabapentin, calcium, multivitamins, vitamin B12, subcutaneous monthly. PAIN CLINIC ASSESSMENT AND PQRS: 1. The patient has some osteoarthritic changes involving her hands, spine and knees. She denies being treated for rheumatoid arthritis. 2. Height: 5 feet 1 inch, weight 204 pounds, BMI is 38.7. 3. Vital Signs: Blood pressure 114/74, pulse 92, respiratory rate 16, room air saturation 100%. 4. Pain intensity: 6/10. 5. Fall history: The patient fell about 2 weeks ago on the ice. She did not go to the Emergency Room or seek medical attention. 6. Blood thinner: The patient is not on a blood thinning medication. 7. Hypertension: The patient is being treated for hypertension. 8. Opioids greater than 6 weeks: The [place] [address] PAIN MANAGEMENT CONSULTATION Name: SHANON TURNER [facility] Room #: REG Shira Salas#: [id number] Admission: 10/06/19 Attend Phys: Willy Whatley MD Discharge: Date of : 72 Report #: [id number] source, pain clinic. 9. Risk assessment tool: Low. 10. Functional assessment tool: . 11. Recreational drug use: The patient denies. 12. Tobacco: The patient is a former smoker. 13. Alcohol. The patient denies frequent use of alcoholic beverages. PHYSICAL EXAMINATION: GENERAL: The patient is a well-developed, well-nourished black female, appears her stated age. She is alert and oriented x 3. Her affect is appropriate. Speech is fluent. HEENT: Normocephalic, atraumatic. Extraocular eye muscles intact. The patient's speech continues to improve. As you recall, she had a stroke with some stuttering difficulty. ABDOMEN: Protuberant. Bowel sounds present. HEART: Regular rate. MUSCULOSKELETAL: Upper extremity muscle strength judged to be 4+/5 for the major muscle groups in the upper extremity. Lower extremity muscle strength 5-/5. The patient walks with a slight antalgic gait. IMPRESSION: 1. Status post cerebrovascular accident with transient ischemic attack and changes. Stuttering, which continues to improve. 2. Depression. 3. Acid reflux. 4. Chronic pernicious anemia related to gastric bypass. 5. Right hip pain. 6. Status post surgery on the right hip. 7. Medical management of pain with complex medications with opioids. RECOMMENDATIONS: We discussed treatment options with the patient. At this juncture, we will continue with her current medications. She feels that the medications continue to be helpful. She is not having any untoward problems with them. Her stuttering continues to improve. She still feels that the pain is quite comfortable and feels there is some ibtm-ws-lvjc component of her pain and discomfort. She feels her medications continue to be helpful. She would like to continue to maintain at the current level. She will be provided with a script for OxyContin 5 mg 1 p.o. b.i.d. to t.i.d. She will also continue with Flexeril 10 mg 1 p.o. b.i.d. She will call us if she has any concerns. Hopefully, she will continue to improve as time goes on. She will call us if she has any concerns. [facility] [address] [place] [address] PAIN MANAGEMENT CONSULTATION Name: SHANON TURNER Room #: REG ESTHER Ma.#: [id number] Admission: 10/06/19 Attend Phys: Willy Whatley MD Discharge: Date of : 72 Report #: [id number] We would like to thank you for letting us participate in her care. <ELECTRONICALLY SIGNED> By: Willy Whatley MD 10/15/19 0821 1703 [id number] Willy Whatley MD /nt
== END ==
LOC: PAIN 06:39
DX: M54.5 Low back pain (principal); M25.559 Pain in unspecified hip; F32.9 Major depressive disorder, single episode, unspecified; K21.9 Gastro-esophageal reflux disease without esophagitis; Z79.891 Long term (current) use of opiate analgesic; Z79.899 Other long term (current) drug therapy

== ENCOUNTER → 2019-12-01 | Outpatient (CLI) | payer OTHER ==
[~2019-12-01] VITALS: Ht 154.9 cm; Wt 93.0 kg
[~2019-12-01] MED LIST changes: +TOPAMAX100 MG PO
[2019-12-01 09:20] VITALS: BP 139/83
--- NOTE | 2019-12-01 09:26 | NUR ---
Pain Clinic Assessment: 1. History of Osteoarthritis: SPINE JOINTS RIGHT HAND History of Rheumatoid Arthritis: NONE 2. Height: 5 ft. 1 in. 154.9 cm. Weight: 205.0 lb. oz. 92.988 kg. Patient's BMI: 38.8 3. Vital Signs: BP: 139/83 Pulse: 95 Resp: 16 Temp: 02 Sat: 97 ECG Mon: 4. Pain Intensity: 7 5. Fall Risk: Dizziness: N Needs help standing or walking: N Fallen in the last 3 months: N Fall risk comments: FELL 2 WEEKS AGO ON ICE. DID NOT GO TO ER OR ANY DOC 6. Patient on Blood Thinner: None 7. History of Hypertension: Y 8. Opioid Therapy greater than 6 weeks: Y Opiate Contract Signed: 12/04/16 9. Risk Assessment Tool Provided: LOW-1 10. Functional Assessment Tool: 11. Recreational Drug Use: Never Drug Type: Tobacco Use: Former Smoker Tobacco Type: Amount or Packs/day: How Many Years: Alcohol Use: No Frequency: Quant:
--- NOTE | 2019-12-14 22:13 | HPC ---
[facility] [address] [place] [address] PAIN MANAGEMENT CONSULTATION Name: SHANON TURNER Room #: REG ESTHER Ma.#: [id number] Admission: 12/01/19 Attend Phys: Willy Whatley MD Discharge: Date of : 72 Report #: [id number] THIS REPORT FOR: cc: JOSSY WHATLEY MD Physician not on staff Willy Whatley MD ~ CC: JOSSY Whatley Physician staff DATE OF SERVICE: 12/01/2019 FOLLOWUP COMPLAINT: Leg, spine and knee pain. HISTORY: The patient is a 49-year-old female who has been followed in the pain clinic. As you recall, she continues to have pain in her back as well as some joints. She has pain in her hands. She has ljbb-sx-ywol components in her knee. At this point, she finds her pain continues to be problematic. She rates it as a 7/10. Notes that pain involves both hips as well as low back area. Has a throbbing, aching sensation. Pain is exacerbated with walking. It can be problematic with sitting. Pain improves somewhat with medication. There are certain activities that can improve her discomfort. She continues to be followed by her oncologist. She has returned today for renewal of her medications. She feels that the oxycodone medication continues to be helpful. She finds that climbing stairs, driving, cold weather can be uncomfortable. She does try to relax. She has continued to try stretching. ALLERGIES: IRON, CODEINE. CURRENT MEDICATIONS: OxyIR 5 mg 2-3 tablets daily, riboflavin, escitalopram, phentermine, Flexeril, Imitrex, Topamax b.i.d., Vyvanse 70 mg, Reglan, amlodipine, Protonix, Drisdol, Coreg, gabapentin, calcium, multivitamins, vitamin B12, subcutaneous injections monthly. PAIN CLINIC ASSESSMENT AND PQRS: 1. The patient has some osteoarthritic changes involving her hands, spine and knees. She denies being treated for rheumatoid arthritis. 2. Height 5 feet 1 inch, weight 205 pounds, BMI is 38.8. 3. Vital Signs: Blood pressure 139/83, pulse 95, respiratory rate 16, room air saturation 97%. 4. Pain intensity 10. 5. Fall history: The patient has not fallen in the last 3 months. 6. Blood thinner. The patient is not on a blood thinning medication. 7. Hypertension. The patient is being treated for hypertension. 8. Opioids greater than 6 weeks. The patient receives medication from [place] [address] PAIN MANAGEMENT CONSULTATION Name: SHANON TURNER MISAEL Room #: REG Shira Salas#: [id number] Admission: 12/01/19 Attend Phys: Willy Whatley MD Discharge: Date of : 72 Report #: [id number] 9. Functional assessment tool . 10. Recreational drug use. The patient denies. 11. Tobacco: The patient is a former smoker. 12. Alcohol. The patient denies frequent use of alcoholic beverages. PHYSICAL EXAMINATION: GENERAL: The patient is a well-developed, well-nourished black female, appears her stated age. She is alert and oriented x 3. Her affect is appropriate. Speech is fluent. The patient is having much less stuttering. HEENT: Normocephalic, atraumatic. Extraocular eye muscles intact. Sclerae nonicteric. NECK: Without JVD. ABDOMEN: Nontender, protuberant. Bowel sounds present. HEART: Regular rate. MUSCULOSKELETAL: Upper extremity muscle strength judged to be 4+/5 for the major muscle groups in the upper extremity. Lower extremity muscle strength is 5-/5. The patient continues to walk with a slightly antalgic gait. IMPRESSION: 1. Status post cerebrovascular accident with transient ischemic attack. Stuttering has improved. 2. Depression. 3. Acid reflux. 4. Chronic pernicious anemia related to gastric bypass. 5. Right hip pain. 6. Status post right hip surgery. 7. Medical management of pain with complex medications using opioids. RECOMMENDATIONS: We discussed treatment options with the patient. At this juncture, we will continue with her medications. She feels the medications continue to be helpful. She has pain because of ibfi-hl-ihsp pain. She continues to use her medication as prescribed. She is aware that opioid medications can become less effective over time because of tolerance. She has not shown any signs of addiction. She has taken her medication as prescribed. A script for her medications have been renewed. She will continue with OxyIR 5 mg 1 p.o. q. 4-6 hours p.r.n. for pain. She will call us if she has any concerns. We would like to thank you for letting us participate in her care. We hope she continues to improve. <ELECTRONICALLY SIGNED> By: Willy Whatley MD 12/14/19 [id number] [id number] 10 Willy Whatley MD /BLAINE
== END ==
LOC: PAIN 06:50
DX: M54.5 Low back pain (principal); M79.641 Pain in right hand; M79.642 Pain in left hand; F32.9 Major depressive disorder, single episode, unspecified; K21.9 Gastro-esophageal reflux disease without esophagitis; M25.551 Pain in right hip; F11.20 Opioid dependence, uncomplicated; D51.0 Vitamin B12 deficiency anemia due to intrinsic factor deficiency; Z96.641 Presence of right artificial hip joint; Z86.73 Personal history of transient ischemic attack (TIA), and cerebral infarction without residual deficits; Z88.5 Allergy status to narcotic agent; Z79.899 Other long term (current) drug therapy

== ENCOUNTER → 2020-01-28 | Outpatient (CLI) | payer OTHER ==
[~2020-01-28] VITALS: Ht 154.9 cm; Wt 93.7 kg
[2020-01-28 13:30] VITALS: BP 131/84
--- NOTE | 2020-01-28 13:42 | NUR ---
Pain Clinic Assessment: 1. History of Osteoarthritis: SPINE JOINTS RIGHT HAND History of Rheumatoid Arthritis: NONE 2. Height: 5 ft. 1 in. 154.9 cm. Weight: 206.6 lb. oz. 93.713 kg. Patient's BMI: 39.1 3. Vital Signs: BP: 131/84 Pulse: 90 Resp: 16 Temp: 02 Sat: 100 ECG Mon: 4. Pain Intensity: 7 5. Fall Risk: Dizziness: N Needs help standing or walking: N Fallen in the last 3 months: N Fall risk comments: FELL 2 WEEKS AGO ON ICE. DID NOT GO TO ER OR ANY DOC 6. Patient on Blood Thinner: None 7. History of Hypertension: Y 8. Opioid Therapy greater than 6 weeks: Y Opiate Contract Signed: 12/04/16 9. Risk Assessment Tool Provided: LOW-1 10. Functional Assessment Tool: 11. Recreational Drug Use: Never Drug Type: Tobacco Use: Former Smoker Tobacco Type: Amount or Packs/day: How Many Years: Alcohol Use: No Frequency: Quant:
--- NOTE | 2020-02-02 11:25 | HPC ---
[facility] [place] [address] PAIN MANAGEMENT CONSULTATION Name: SHANON TURNER Room #: REG ESTHER Ureña.Andrey.#: [id number] Admission: 01/28/20 Attend Phys: Willy Whatley MD Discharge: Date of : 72 Report #: [id number] THIS REPORT FOR: cc: JOSSY WHATLEY MD Physician not on staff Willy Whatley MD ~ CC: JOSSY Whatley Physician staff DATE OF SERVICE: 01/28/2020 CHIEF COMPLAINT: Pain in the right leg, both hips and low back. HISTORY: The patient is a 49-year-old female who has been followed in the Pain Clinic because of chronic pain. She returns today indicating that her pain is a 7/10. It involves both hips. It radiates down into her leg on the right side. She describes it as chronic aching and throbbing. She notes that the pain is worse when she is walking or sitting. Other activities can be problematic, but medications continue to be fruitful. She has taken the medication as prescribed. Feels that it continues to be beneficial and would like to continue its use. She continues to recover from her stroke. She feels that her speech is better. She turns off the voice on regular television programs. She reads the subtitles. She feels that this is helpful in improving her speech and decreasing the amount of stuttering. ALLERGIES: IRON, CODEINE. CURRENT MEDICATIONS: OxyIR 5 mg 2-3 tablets daily, riboflavin, Escitalopram, phentermine, Flexeril, Imitrex, Topamax b.i.d., Vyvanse 70 mg, Reglan, amlodipine, Protonix, Drisdol, Coreg, gabapentin, calcium, multivitamins, and vitamin B12, this is injected subcutaneously monthly. PAIN CLINIC ASSESSMENT AND PQRS: 1. The patient has some osteoarthritic changes in her hands. Has problems with her spine and knees. Complains of hip pain. She is not being treated for rheumatoid arthritis. 2. Height 5 feet 1 inch, weight 206 pounds, BMI is 39.1. 3. Vital signs: Blood pressure 131/84, pulse 90, respiratory rate 16, room air saturation 100%. 4. Pain intensity 01/27. 5. Fall history: The patient has not fallen since we saw her last. 6. Blood thinner. The patient is not on a blood thinning medication. 7. Hypertension. The patient is being treated for hypertension. 8. Opioids greater than 6 weeks. The patient received medication [place] [address] PAIN MANAGEMENT CONSULTATION Name: SHANON TURNER MISAEL Room #: REG Shira Ma.#: [id number] Admission: 01/28/20 Attend Phys: Willy Whatley MD Discharge: Date of : 72 Report #: [id number] 9. Risk assessment tool, low for opioid use. 10. Functional assessment tool . 11. Recreational drug use. The patient denies. 12. Tobacco: The patient is a former smoker. 13. Alcohol: The patient denies frequent use of alcohol at this juncture. PHYSICAL EXAMINATION: GENERAL: The patient is a well-developed, well-nourished black female, appears her stated age. She is alert and oriented x 3. Her affect is appropriate. Speech is fluent. The patient is having much less problems with stuttering. HEENT: Atraumatic. Extraocular eye muscles intact. Sclerae nonicteric. The patient is wearing a mask. NECK: Without adenopathy or JVD. LUNGS: Clear to auscultation. HEART: Regular. ABDOMEN: Nontender, protuberant. MUSCULOSKELETAL: Upper extremity muscle strength judged to be 4+/5 for the major muscle groups in the upper extremity. Lower extremity muscle strength is 5-/5. The patient continues to walk with a slight antalgic gait. IMPRESSION: 1. Status post cerebrovascular accident with transient ischemic attacks - improved stuttering. 2. Depression. 3. Acid reflux. 4. Chronic pernicious anemia related to gastric bypass. 5. Right hip pain. 6. Status post right hip surgery. 7. Medical management of pain with complex medications including opioids. RECOMMENDATIONS: We discussed treatment options with the patient. At this juncture, we will continue with her medications. She feels that the medications are helpful. She is not having any complication from their use. A script for her medications has been provided. She will continue with oxycodone 5 mg 1 p.o. p.r.n. She has been provided 75 tablets for each of the next 2 months. She will call us if she has any concerns. We would like to thank you for letting us participate in her care. She will also continue with Flexeril for muscle spasms. <ELECTRONICALLY SIGNED> By: Willy Whatley MD 02/02/20 1125 [id number] Willy Whatley MD /nt
== END ==
LOC: PAIN 06:46
PROVIDERS: ATTEND Anesthesiology Pain Medicine
DX: M19.042 Primary osteoarthritis, left hand (principal); M19.041 Primary osteoarthritis, right hand; G45.9 Transient cerebral ischemic attack, unspecified; Z79.899 Other long term (current) drug therapy

== ENCOUNTER → 2020-03-22 | Outpatient (CLI) | payer OTHER ==
[~2020-03-22] VITALS: Ht 154.9 cm; Wt 91.7 kg
[~2020-03-22] MED LIST changes: +COMPAZINE5 M1 PO; +ESTRADIOL1 EA10 TRANSDERM; +UBRELVY50 MG PO
--- NOTE | ~2020-03-22 | HPC ---
[facility] [place] [address] PAIN MANAGEMENT CONSULTATION Name: SHANON TURNER Room #: REG [facility] M..#: [id number] Admission: 03/22/20 Attend Phys: Willy Espinosa MD Discharge: Date of : 72 Report #: [id number] THIS REPORT FOR: cc: JOSSY ESPINOSA MD Physician not on staff Willy Espinosa MD ~ CC: JOSSY Espinosa Physician staff DATE OF SERVICE: 03/22/2020 CHIEF COMPLAINT: Low back, bilateral hip and right leg pain. HISTORY: The patient is a 49-year-old female who has been followed in the pain clinic. She is experiencing pain and discomfort in lower portion of her back. She notes that the pain is a 6/10. Walking, sitting, standing and other activities can exacerbate her discomfort. She notes her pain improves with use of her medication. Sometimes repositioning can be helpful. She would like to continue with her medication. As you may recall, she did suffer a stroke. She has pretty much recovered from that. She still has some evidence in her speech, but this continues to improve. States that she turns off the television and reads the dialogue in subtitles. This has helped her improve her speech. ALLERGIES: IRON, CODEINE. CURRENT MEDICATIONS: OxyIR 5 mg 2-3 tablets daily, riboflavin, escitalopram, phentermine, Flexeril, Imitrex IM, Topamax b.i.d., Vyvanse 70 mg, Reglan, amlodipine, Protonix, Drisdol, Coreg, gabapentin, calcium, multivitamins, vitamin B12, this is injected subcutaneous monthly. PAIN CLINIC ASSESSMENT AND PQRS: 1. The patient has some osteoarthritic changes in her hands. She has some problems with her spine and knees. She also complains of pain in her hips. She is not being treated for rheumatoid arthritis. 2. Height 5 feet 1 inch, weight 220 pounds, BMI is 38. 3. Vital signs: Blood pressure 123/80, pulse 98, respiratory rate 20, room air saturation 100%. 4. Pain intensity 6/10 right and left leg lower back and inflammation in the right hip. 5. Fall risk. The patient has not fallen in the last 3 months. 6. Blood thinner. The patient is not on a blood thinning medication. 7. Hypertension. The patient is being treated for hypertension. 8. Opioids greater than 6 weeks. 9. Risk assessment tool, low for opioid use. 10. Functional assessment tool . [facility] [address] [place] [address] PAIN MANAGEMENT CONSULTATION Name: SHANON TURNER Room #: REG [facility]#: [id number] Admission: 03/22/20 Attend Phys: Willy Espinosa MD Discharge: Date of : 72 Report #: [id number] 11. Recreational drug use. The patient denies. 12. Tobacco: The patient is a former smoker. 13. Alcohol. The patient denies frequent use of alcoholic beverages. PHYSICAL EXAMINATION: GENERAL: The patient is a well-developed, well-nourished black female, appears her stated age. She is alert and oriented x 3. Her affect is appropriate. Speech is improving with less stuttering. HEENT: Normocephalic, atraumatic. Extraocular eye muscles intact. Sclerae nonicteric. Mucous membranes are moist. The patient is wearing a facial mask. NECK: Without adenopathy or JVD. LUNGS: Clear to auscultation. HEART: Regular rate. ABDOMEN: Nontender, protuberant. MUSCULOSKELETAL: Upper extremity muscle strength judged to be 4+/5 for the major muscle groups in the upper extremity and lower extremity muscle strength is 5-/5. The patient walks with a slight antalgic gait. IMPRESSION: 1. Status post cerebrovascular accident with transient ischemic attack with improved stuttering. 2. Depression. 3. Acid reflux. 4. Chronic pernicious anemia related to gastric bypass. 5. Right hip pain. 6. Status post right hip surgery. 7. Medical management of pain with complex medical management using opioids. RECOMMENDATIONS: We discussed treatment options with the patient. At this juncture, we will continue with her medication regimen. She feels that these medications are beneficial. Does still have pain in her right and left leg. Does have some inflammation and discomfort in her right hip. We will continue with her medications. A script for her medications have been sent to her pharmacy. She will continue with the muscle relaxant, Flexeril 10 mg 1 p.o. b.i.d. She will also continue with OxyIR 5 mg 1 p.o. b.i.d. to t.i.d. to help with pain control. The patient has been provided with 2 months of medication. She will also continue with gabapentin 400 mg 1 p.o. t.i.d. She will call us if she has any concerns. We would like to thank you for letting us participate in her care. We hope she continues to improve. By: [id number] Willy Espinosa MD /leah
[2020-03-22 10:31] VITALS: BP 123/81
--- NOTE | 2020-03-22 10:49 | NUR ---
Pain Clinic Assessment: 1. History of Osteoarthritis: BACK JOINTS RIGHT HAND History of Rheumatoid Arthritis: NONE 2. Height: 5 ft. 1 in. 154.9 cm. Weight: 202.2 lb. oz. 91.717 kg. Patient's BMI: 38.2 3. Vital Signs: BP: 123/81 Pulse: 98 Resp: 20 Temp: 02 Sat: 100 ECG Mon: 4. Pain Intensity: 6 5. Fall Risk: Dizziness: N Needs help standing or walking: N Fallen in the last 3 months: N Fall risk comments: FELL 2 WEEKS AGO ON ICE. DID NOT GO TO ER OR ANY DOC 6. Patient on Blood Thinner: None 7. History of Hypertension: Y 8. Opioid Therapy greater than 6 weeks: Y Opiate Contract Signed: 12/04/16 9. Risk Assessment Tool Provided: LOW-1 10. Functional Assessment Tool: 11. Recreational Drug Use: Never Drug Type: Tobacco Use: Former Smoker Tobacco Type: Amount or Packs/day: How Many Years: Alcohol Use: No Frequency: Quant:
== END ==
LOC: PAIN 06:55
PROVIDERS: ATTEND Anesthesiology Pain Medicine
DX: M19.042 Primary osteoarthritis, left hand (principal); M19.041 Primary osteoarthritis, right hand; G45.9 Transient cerebral ischemic attack, unspecified; Z79.891 Long term (current) use of opiate analgesic; Z79.899 Other long term (current) drug therapy

== ENCOUNTER → 2020-05-19 | Outpatient (CLI) | payer OTHER ==
[~2020-05-19] VITALS: Ht 152.4 cm; Wt 94.3 kg
[~2020-05-19] MED LIST changes: +TRAZODONE HCL100 MG PO; +VYVANSE70 MG PO
[2020-05-19 08:14] VITALS: BP 141/85
--- NOTE | 2020-05-19 08:34 | NUR ---
Pain Clinic Assessment: 1. History of Osteoarthritis: BACK JOINTS RIGHT HAND History of Rheumatoid Arthritis: NONE 2. Height: 5 ft. 1 in. 152.4 cm. Weight: 208.0 lb. oz. 94.348 kg. Patient's BMI: 40.6 3. Vital Signs: BP: 141/85 Pulse: 105 Resp: 18 Temp: 02 Sat: 98 ECG Mon: 4. Pain Intensity: 8 5. Fall Risk: Dizziness: Needs help standing or walking: Fallen in the last 3 months: Fall risk comments: FELL 2 WEEKS AGO ON ICE. DID NOT GO TO ER OR ANY DOC 6. Patient on Blood Thinner: None 7. History of Hypertension: Y 8. Opioid Therapy greater than 6 weeks: Y Opiate Contract Signed: 12/04/16 9. Risk Assessment Tool Provided: LOW-1 10. Functional Assessment Tool: 11. Recreational Drug Use: Never Drug Type: Tobacco Use: Former Smoker Tobacco Type: Amount or Packs/day: How Many Years: Alcohol Use: Yes Frequency: Special Occasions Quant: 1 OR 2
--- NOTE | 2020-05-22 08:49 | HPC ---
[facility] [address] [address] PAIN MANAGEMENT CONSULTATION Name: SHANON TURNER Room #: REG ESTHER M.R.#: [id number] Admission: 05/19/20 Attend Phys: Kandice Soares Discharge: Date of : 72 Report #: [id number] CC: Kandice Whatley MD Physician staff DATE OF SERVICE: 05/19/2020 CHIEF COMPLAINT: Low back pain, bilateral hip pain and right leg pain. HISTORY OF PRESENT ILLNESS: As you know, this is a 49-year-old female who is a longstanding patient in the pain clinic today. She returns for medication management, stating her pain is an 8/10. She feels that it has flared due to weather changes. She reports that in the winter, her pain is worse and it has been cold this week. Her pain is mostly located in her lower back and left hip today, though she does have ongoing right leg pain at times. Today, she states a constant, aching, sharp pain in her hip, worse with walking and prolonged standing and sitting. At times, she does utilize a cane, but is not using this today. She feels her medication as well as position changes have been beneficial. The patient continues to try and lose weight in the hopes of having bariatric surgery, but lately she has been having premenopausal issues and has recently started trazodone and estradiol, and she feels this has caused her to gain some weight, but she does continue on her Vyvanse and phentermine as well. Today, her weight is up 2 pounds since her last visit. ALLERGIES: IRON AND CODEINE. CURRENT LIST OF MEDICATIONS: Trazodone 100 mg at bedtime, OxyIR 5 mg, Flexeril, Ubrelvy, Compazine, estradiol, Topamax, iron, loratadine, Pepcid, Carafate, Lexapro, phentermine, Vyvanse, Reglan, amlodipine, Protonix, Drisdol, carvedilol, gabapentin, calcium, multivitamin, and vitamin B. PQRS: 1. The patient has arthritic changes in her hands, knees and spine and hips. She denies any rheumatoid arthritis. 2. Height is 5 feet 1 inch, weight is 208, BMI is 40. 3. Vital signs 141/85, pulse is 105, respirations 18, oxygen sat is 98%. 4. Pain score is 8/10. 5. Denies dizziness. Does use a cane for ambulation at times. Has not fallen in the last 3 months. 6. The patient is not on any blood thinners, but does take medicine for hypertension. Her opioid therapy is greater than 6 weeks; therefore, an opioid signed contract is on the chart. Risk assessment is low. Functional assessment is 52/70. 7. Recreational drug use, she denies. She is a former smoker and does drink alcohol. According to the prescription monitoring system, the patient is filling appropriately for her opioid medications. She is due to fill those today. Her morphine mEq is 22 according to the CDC guidelines. She does take several other scheduled medications filled by her primary in a timely fashion. PHYSICAL EXAMINATION: GENERAL: This is alert and orientated, slightly obese 49-year-old female who appears her stated age. Her affect is appropriate. Speech is improving with less stuttering though she is wearing a mask today. HEENT: Normocephalic, atraumatic. Extraocular eye muscles are intact. NECK: Without adenopathy or JVD. MUSCULOSKELETAL: Upper extremity strength is judged to be 4/5 and lower extremities at 5/5. She has a slightly antalgic gait. She has tenderness in her lumbosacral region that radiates into her left hip. IMPRESSION: 1. Status post cerebrovascular accident with transient ischemic attack. 2. Depression. 3. Chronic pernicious anemia related to gastric bypass. 4. Right hip pain. 5. Medication management under medical management utilizing opioids. 6. Low back pain. We reviewed the fact that opiate medications are being used to provide analgesia adequate to support activities of daily living, not attempting to achieve a specific pain score on the 0-10 Visual Analog Scale. The current opiate medications are providing sufficient analgesia to allow the patient to participate in activities of daily living. The patient is not exhibiting any aberrant behavior suggestive of drug diversion. The patient is not having any adverse reactions to medications. The patient is not suffering from daytime somnolence or mental acuity changes. The patient is managing opiate-induced constipation with appropriate rjyu-vbu-lubkskc agents and dietary considerations. The patient was counseled on concern for caution with operating a motor vehicle while using opiate medications. PLAN: 1. We will continue her on her current medications of OxyIR 5 mg, #75 for today and 4 weeks supply. She finds these beneficial with very minimal side effects and denies any constipation issues. We will continue her on her Flexeril as well, quantity 60 with one refill sent electronically. 2. We encouraged the patient to try to be as active as she is able. It is difficult with this colder weather, but she is trying to lose weight to have further surgery. The patient does take her phentermine and Vyvanse. 3. We did discuss Voltaren gel to place on her left hip. It is cnca-ydb-doryhto. She may use that 2-4 times a day. She is unable to tolerate oral anti-inflammatories due to a gastric ulcer in the past. I explained that this is not a systemic medicine, so it should help on her osteoarthritic hips. 4. The patient is seen in collaboration with Dr. Whatley. The patient will return in 2 months. <ELECTRONICALLY SIGNED> By: Kandice Soares 05/22/20 0849 [id number] Kandice Soares /nt
== END ==
LOC: PAIN 07:01
PROVIDERS: ATTEND Clinical Nurse Specialist Adult Health
DX: M25.551 Pain in right hip (principal); D64.89 Other specified anemias; F32.9 Major depressive disorder, single episode, unspecified; Z79.891 Long term (current) use of opiate analgesic; Z79.899 Other long term (current) drug therapy

== ENCOUNTER → 2020-07-04 | Outpatient (CLI) | payer OTHER | LOC: SJCVC 09:49 | PROVIDERS: ATTEND Internal Medicine Cardiovascular Disease | DX: R07.9 Chest pain, unspecified (principal); I10 Essential (primary) hypertension; J45.909 Unspecified asthma, uncomplicated; G89.29 Other chronic pain; Z79.899 Other long term (current) drug therapy; Z87.891 Personal history of nicotine dependence; Z86.73 Personal history of transient ischemic attack (TIA), and cerebral infarction without residual deficits; Z82.49 Family history of ischemic heart disease and other diseases of the circulatory system ==

== ENCOUNTER → 2020-07-10 | Outpatient (CLI) | payer OTHER ==
[~2020-07-10] MED LIST changes: +PHENTERMINE H37.5 MG PO
== END ==
LOC: SJCVCIMAG 07:30
PROVIDERS: ATTEND Internal Medicine Cardiovascular Disease
DX: R00.0 Tachycardia, unspecified (principal); I49.3 Ventricular premature depolarization; G89.29 Other chronic pain; I10 Essential (primary) hypertension; Z79.899 Other long term (current) drug therapy; Z86.73 Personal history of transient ischemic attack (TIA), and cerebral infarction without residual deficits; Z87.891 Personal history of nicotine dependence; Z82.49 Family history of ischemic heart disease and other diseases of the circulatory system

== ENCOUNTER → 2020-07-19 | Outpatient (CLI) | payer OTHER ==
[~2020-07-19] VITALS: Ht 154.9 cm; Wt 96.1 kg
[2020-07-19 08:16] VITALS: BP 142/67
--- NOTE | 2020-07-19 08:32 | NUR ---
Pain Clinic Assessment: 1. History of Osteoarthritis: BACK JOINTS RIGHT HAND History of Rheumatoid Arthritis: NONE 2. Height: 5 ft. 1 in. 154.9 cm. Weight: 211.8 lb. oz. 96.072 kg. Patient's BMI: 40.0 3. Vital Signs: BP: 142/67 Pulse: 83 Resp: 18 Temp: 02 Sat: 99 ECG Mon: 4. Pain Intensity: 8 5. Fall Risk: Dizziness: N Needs help standing or walking: N Fallen in the last 3 months: N Fall risk comments: FELL 2 WEEKS AGO ON ICE. DID NOT GO TO ER OR ANY DOC 6. Patient on Blood Thinner: None 7. History of Hypertension: Y 8. Opioid Therapy greater than 6 weeks: Y Opiate Contract Signed: 12/04/16 9. Risk Assessment Tool Provided: LOW-1 10. Functional Assessment Tool: 11. Recreational Drug Use: Never Drug Type: Tobacco Use: Former Smoker Tobacco Type: Amount or Packs/day: How Many Years: Alcohol Use: Yes Frequency: Special Occasions Quant: 1
== END ==
LOC: PAIN 06:38
PROVIDERS: ATTEND Anesthesiology Pain Medicine
DX: M54.5 Low back pain (principal); G89.29 Other chronic pain; F32.9 Major depressive disorder, single episode, unspecified; Z86.73 Personal history of transient ischemic attack (TIA), and cerebral infarction without residual deficits; Z79.891 Long term (current) use of opiate analgesic

== ENCOUNTER → 2020-09-13 | Outpatient (CLI) | payer OTHER ==
[~2020-09-13] VITALS: Ht 154.9 cm; Wt 97.8 kg
[2020-09-13 08:09] VITALS: BP 124/86
--- NOTE | 2020-09-13 08:20 | NUR ---
Pain Clinic Assessment: 1. History of Osteoarthritis: BACK JOINTS RIGHT HAND History of Rheumatoid Arthritis: NONE 2. Height: 5 ft. 1 in. 154.9 cm. Weight: 215.6 lb. oz. 97.796 kg. Patient's BMI: 40.8 3. Vital Signs: BP: 124/86 Pulse: 88 Resp: 16 Temp: 02 Sat: 99 ECG Mon: 4. Pain Intensity: 7 5. Fall Risk: Dizziness: N Needs help standing or walking: N Fallen in the last 3 months: N Fall risk comments: FELL 2 WEEKS AGO ON ICE. DID NOT GO TO ER OR ANY DOC 6. Patient on Blood Thinner: None 7. History of Hypertension: Y 8. Opioid Therapy greater than 6 weeks: Y Opiate Contract Signed: 12/04/16 9. Risk Assessment Tool Provided: LOW-1 10. Functional Assessment Tool: 11. Recreational Drug Use: Never Drug Type: Tobacco Use: Former Smoker Tobacco Type: Amount or Packs/day: How Many Years: Alcohol Use: Yes Frequency: Monthly Quant: 1
--- NOTE | 2020-09-13 13:04 | HPC ---
[facility] [place] [address] PAIN MANAGEMENT CONSULTATION Name: SHANON TURNER Room #: REG [facility] M..#: [id number] Admission: 09/13/20 Attend Phys: Kandice Soares Discharge: Date of : 72 Report #: [id number] THIS REPORT FOR: cc: JOSSY WHATLEY MD Physician not on staff Kandice Soares ~ DATE OF SERVICE: 09/13/2020 CHIEF COMPLAINT: Low back pain, bilateral hip pain, and right chest wall pain. HISTORY OF PRESENT ILLNESS: This is a 50-year-old female who returns to the pain clinic today for a refill of her medications and to discuss possible intercostal injections. The previous visit that the patient saw Dr. Whatley in June, she was diagnosed with intercostal neuritis and Dr. Whatley did discuss doing intercostal blocks. At that time, the patient had chosen to think about it. Today, she is requesting more information and is wondering if she would be able to schedule that injection. The patient reports her normal pain a 7/10 in her low back, right leg and occasionally into her left hip. It is a constant, aching, sharp pain that is worse with weather changes. She reports that it has been bad the last couple of weeks with the changing in the weather. She also reports that walking and sitting do aggravate her pain. The medications are beneficial as well as changing positions. Unfortunately, she has gained some weight and she has noticed that has caused an increase in pain as well since she is not as active. She denies significant constipation or daytime somnolence as a result of her opioid medications. ALLERGIES: IRON, CODEINE, AND CELEBREX. CURRENT LIST OF MEDICATIONS: OxyIR 5 mg t.i.d. p.r.n., phentermine, Flexeril, trazodone, Ubrelvy, Compazine p.r.n., estradiol, Topamax, iron, loratadine, Pepcid, Atrovent, amlodipine, Protonix, Ventolin, Drisdol, Coreg, Neurontin, calcium, multivitamin, and vitamin B12. PQRS: 1. She has osteoarthritic changes in her back, hands and knees. Denies any rheumatoid arthritis. 2. Height is 5 feet 1 inch, weight is 215, BMI is 40. This is a slight increase in her weight from her last visit. 3. Vital signs 124/86, pulse is 88, respirations 16, oxygen sat is 99. 4. Pain score is 7/10. 5. Denies dizziness, does not need help walking, has not fallen in the last 3 months. 6. The patient is not on any blood thinners, but does take medicine for hypertension. Her opioid therapy is greater than 6 weeks; therefore, an opioid [address] [address] PAIN MANAGEMENT CONSULTATION Name: SHANON TURNER MISAEL Room #: REG ESTHER Salas#: [id number] Admission: 09/13/20 Attend Phys: Kandice Soares Discharge: Date of : 72 Report #: [id number] signed contract is on the chart. Risk assessment is low. Functional assessment is 52/70. 7. Recreational drug use, she denies. She is a former smoker and occasionally drinks alcohol. According to the prescription monitoring system, the patient is due to fill her medications, filling them in a timely fashion. Morphine mEq is 25 MME. There is a drug screen on the chart and we will check that at her next opioid management visit. PHYSICAL EXAMINATION: GENERAL: This is a well-developed, well-nourished, morbidly obese 50-year-old female who rating her pain score at 7/10 today. HEENT: Normocephalic, atraumatic. Extraocular eye muscles are intact. Sclerae are nonintrinsic. She is wearing a mask. NECK: Without adenopathy or JVD. LUNGS: Clear. She has discomfort on the right upper chest area, palpitation of the first and second and third intercostal areas reproduce her pain and are significantly tender, deep breathing increases pain. MUSCULOSKELETAL: The patient is without significant scoliosis, kyphosis or lordosis. She has pain in the lumbosacral region that does radiate down her right leg. Lower extremity strength is symmetrical at 5/5. IMPRESSION: 1. Status post cerebrovascular accident with transient ischemic attack. 2. Depression. 3. Right hip pain. 4. Chronic low back pain. 5. Intercostal neuritis. 6. Management of high risk medications utilizing opioids. We reviewed the fact that opiate medications are being used to provide analgesia adequate to support activities of daily living, not attempting to achieve a specific pain score on the 0-10 Visual Analog Scale. The current opiate medications are providing sufficient analgesia to allow the patient to participate in activities of daily living. The patient is not exhibiting any aberrant behavior suggestive of drug diversion. The patient is not having any adverse reactions to medications. The patient is not suffering from daytime somnolence or mental acuity changes. The patient is managing opiate-induced constipation with appropriate [id number]-[id number] agents and dietary considerations. The patient was counseled on concern for caution with operating a motor vehicle while using opiate medications. PLAN: 1. We discussed treatment options with the patient today. I will have her scheduled to come back to see Dr. Whatley next week, so he may perform an [facility] [address] [place] [address] PAIN MANAGEMENT CONSULTATION Name: SHANON TURNER Room #: REG [facility] Ma.#: [id number] Admission: 09/13/20 Attend Phys: Kandice Soares Discharge: Date of : 72 Report #: [id number] intercostal block on her right rib areas. We did discuss this injection again today with side effects and complications. 2. We will continue her on her oxycodone 5 mg, #90. This will be sent electronically by Dr. Whatley to fill today and in 4 weeks. 3. I will send her Flexeril 10 mg tablets, #60 with one additional refill. 4. We did discuss the COVID vaccine. I encouraged her to talk with her primary care doctor. She has an EpiPen and has had reactions in the past. It may be best for her to have the Stefan and Stefan vaccine, which is a 1 shot, though that is not a high of efficacy rate with that vaccine compared to Pfizer and Moderna, but the risks are less for her with her history. 5. The patient is seen today in collaboration with Dr. Charan Whatley. <ELECTRONICALLY SIGNED> By: Kandice Soares 09/13/20 1304 [id number] Kandice Soares /nt
== END ==
LOC: PAIN 06:47
PROVIDERS: ATTEND Clinical Nurse Specialist Adult Health
DX: M54.5 Low back pain (principal); M25.551 Pain in right hip; M25.552 Pain in left hip; R07.89 Other chest pain; F32.9 Major depressive disorder, single episode, unspecified; G89.29 Other chronic pain; G58.0 Intercostal neuropathy; F11.20 Opioid dependence, uncomplicated; Z88.8 Allergy status to other drugs, medicaments and biological substances; Z79.899 Other long term (current) drug therapy

== ENCOUNTER → 2020-11-08 | Outpatient (CLI) | payer OTHER ==
[~2020-11-08] VITALS: Ht 154.9 cm; Wt 96.3 kg
[2020-11-08 08:29] VITALS: BP 134/86
--- NOTE | 2020-11-08 08:58 | NUR ---
Pain Clinic Assessment: 1. History of Osteoarthritis: BACK JOINTS RIGHT HAND History of Rheumatoid Arthritis: NONE 2. Height: 5 ft. 1 in. 154.9 cm. Weight: 212.4 lb. oz. 96.344 kg. Patient's BMI: 40.2 3. Vital Signs: BP: 134/86 Pulse: 97 Resp: 16 Temp: 02 Sat: 100 ECG Mon: 4. Pain Intensity: 7 5. Fall Risk: Dizziness: N Needs help standing or walking: N Fallen in the last 3 months: N Fall risk comments: FELL 2 WEEKS AGO ON ICE. DID NOT GO TO ER OR ANY DOC 6. Patient on Blood Thinner: None 7. History of Hypertension: Y 8. Opioid Therapy greater than 6 weeks: Y Opiate Contract Signed: 12/04/16 9. Risk Assessment Tool Provided: LOW-1 10. Functional Assessment Tool: 11. Recreational Drug Use: Never Drug Type: Tobacco Use: Former Smoker Tobacco Type: Amount or Packs/day: How Many Years: Alcohol Use: Yes Frequency: Quant:
== END | disposition home or self-care (01) ==
LOC: PAIN 09-20 06:40
PROVIDERS: ATTEND Anesthesiology Pain Medicine
DX: M79.18 Myalgia, other site (principal); M94.0 Chondrocostal junction syndrome [Tietze]; I10 Essential (primary) hypertension; M19.90 Unspecified osteoarthritis, unspecified site; F32.9 Major depressive disorder, single episode, unspecified; K21.9 Gastro-esophageal reflux disease without esophagitis; Z98.890 Other specified postprocedural states; Z79.899 Other long term (current) drug therapy; Z87.891 Personal history of nicotine dependence; Z86.73 Personal history of transient ischemic attack (TIA), and cerebral infarction without residual deficits; Z90.49 Acquired absence of other specified parts of digestive tract; Z86.718 Personal history of other venous thrombosis and embolism; Z79.01 Long term (current) use of anticoagulants

== ENCOUNTER → 2021-01-03 | Outpatient (CLI) | payer OTHER ==
[~2021-01-03] VITALS: Ht 154.9 cm; Wt 105.0 kg
[~2021-01-03] MED LIST changes: +AZELASTINE HCL6 ML OPHTHALMIC; +FLONASE 0.05%50 MCG NARES; +MOBIC7.5 MG PO; +VALIUM2 MG PO
[2021-01-03 09:19] VITALS: BP 142/94
--- NOTE | 2021-01-03 09:51 | NUR ---
Pain Clinic Assessment: 1. History of Osteoarthritis: BACK JOINTS RIGHT HAND History of Rheumatoid Arthritis: NONE 2. Height: 5 ft. 1 in. 154.9 cm. Weight: 231.4 lb. oz. 104.963 kg. Patient's BMI: 43.7 3. Vital Signs: BP: 142/94 Pulse: 104 Resp: 20 Temp: 02 Sat: 98 ECG Mon: 4. Pain Intensity: 8-9 W/ACTIVITY 5. Fall Risk: Dizziness: N Needs help standing or walking: N Fallen in the last 3 months: N Fall risk comments: FELL 2 WEEKS AGO ON ICE. DID NOT GO TO ER OR ANY DOC 6. Patient on Blood Thinner: None 7. History of Hypertension: Y 8. Opioid Therapy greater than 6 weeks: Y Opiate Contract Signed: 12/04/16 9. Risk Assessment Tool Provided: LOW-1 10. Functional Assessment Tool: 11. Recreational Drug Use: Never Drug Type: Tobacco Use: Former Smoker Tobacco Type: Amount or Packs/day: How Many Years: Alcohol Use: Yes Frequency: Quant:
--- NOTE | 2021-01-04 07:30 | HPC ---
[facility] [place] [address] PAIN MANAGEMENT CONSULTATION Name: SHANON TURNER Room #: REG [facility] M.R.#: [id number] Admission: 01/03/21 Attend Phys: Kandice Soares Discharge: Date of : 72 Report #: [id number] THIS REPORT FOR: cc: JOSSY WHATLEY MD Physician not on staff Kandice Soares ~ DOC #: [id number] cc: Yoselyn Whatley MD, Dr. Marilee Soares, BYRON DATE OF SERVICE: 01/03/2021 CHIEF COMPLAINT: Low back pain, sternal pain and left knee pain. HISTORY OF PRESENT ILLNESS: This is a 50-year-old female who returns to the pain clinic today for renewal of her medications and to discuss her increase in pain. Today, the patient is reporting pain increase rating at today is 8-9 with activity, mostly located in her low back and knees today as well as her right leg. She reports that the sternal chest wall pain that Dr. Whatley had injected in October has been beneficial stating that helped at least 80% and has ongoing relief. Today, she describes her pain as a constant aching, sharp sensation. She feels like any activity increases her pain and weather changes. She believes she is having more arthritis than she had in the past. She is also slightly depressed today since she has not been able to lose any weight recently and her pain continues to get worse. The patient reports that lying down and utilizing her medication are beneficial, though was not as helpful as they had been in the past. The patient reports that recently she has seen her primary care doctor who is referring her to a psychologist and a [facility]. ALLERGIES: IRON, CODEINE AND CELEBREX. CURRENT LIST OF MEDICATIONS: Flonase, diazepam p.r.n., OxyIR 5 mg p.r.n., Flexeril, trazodone, Ubrelvy, Compazine p.r.n., estradiol, iron, Pepcid, phentermine, amlodipine, Protonix, albuterol inhaler, [place], carvedilol, gabapentin, calcium, multivitamin, and vitamin B12. PQRS: 1. She has osteoarthritic issues in her hands, joint, back. Denies any rheumatoid arthritis. 2. Height is 5 feet 1 inches, weight is 231 kg, BMI is 43. 3. Vital signs; blood pressure 142/94, pulse is 104, respirations 20, oxygen sat is 98%. 4. Pain score is 8-9/10 with activity. 5. Denies dizziness, does not need assistance with ambulation, has not fallen in the last 3 months. 6. The patient is not on any blood thinners, [place] [address] PAIN MANAGEMENT CONSULTATION Name: SHANON TURNER MISAEL Room #: REG CLI Josue#: [id number] Admission: 01/03/21 Attend Phys: Kandice Soares Discharge: Date of : 72 Report #: [id number] hypertension. 7. Opioid therapy is greater than 6 weeks; therefore, an opioid signed contract is on the chart. 8. Risk assessment is low. Functional assessment is 52/70. 9. Recreational drug use, she denies. She is a former smoker and does occasionally drink alcohol. According to the prescription monitoring system, her morphine mEq according to the CDC guidelines is 22. She is filling appropriately in a timely fashion utilizing [facility]. She does have a benzodiazepine of Valium listed on her medications, though she reports that it is very sporadic use only for procedures. We will collect a random drug screen on this patient today. PHYSICAL EXAMINATION: GENERAL: This is a well-developed, well-nourished, obese black female who reports her pain score at 8-9/10 today. She is slightly depressed in her affect today, tearful at times. HEENT: Normocephalic and atraumatic. Extraocular eye muscles are intact. Mucous membranes are moist. She is wearing a facial covering. NECK: Without adenopathy or JVD. MUSCULOSKELETAL: The patient is without significant scoliosis, kyphosis, or lordosis. Upper and lower extremity strength is symmetrical at 5/5. She does have tenderness in multiple joints today of her hands and knees bilaterally. No edema noted. She has a slightly antalgic gait. Pain is also in the lumbosacral region that radiates into her right leg. IMPRESSION: 1. Status post cerebrovascular accident with transverse ischemic attack. No deficits noted. 2. Depression. 3. Chronic pernicious anemia related to gastric bypass. 4. Right hip pain. 5. Chronic low back pain. 6. Osteoarthritis. 7. Medication management under written opioid agreement. PLAN: 1. We discussed treatment options with the patient today. The patient states she is having increasing pain that seems to be arthritic in nature. The patient has had a gastric bypass in the past and was unable to take Celebrex, but is wanting to try some anti-inflammatory medication. I have prescribed meloxicam 7.5 mg twice a day instructing the patient to start at 1 tablet a day to see if this is beneficial in decreasing her inflammation. I explained the lowest most effective dose in order only utilize 2 tablets a day on her more painful days. We also did discuss Voltaren gel as an alternative to her hand pain and knee pain. We will continue her on her oxycodone 5 mg tablets, #90. Dr. Whatley will [facility] [address] [place] [address] PAIN MANAGEMENT CONSULTATION Name: SHANON TURNER MISAEL Room #: REG CL M.R.#: [id number] Admission: 01/03/21 Attend Phys: Kandice Soares Discharge: Date of : 72 Report #: [id number] send this electronically to fill today 4-week refills. 2. We will continue her on her Flexeril 10 mg tablets #60 with 1 additional refill. The patient does take this mostly at night, though I encouraged her if she can tolerate this medicine by splitting it in half when her pain is worse during the day to take 5 mg tablets. 3. The patient continues to find the trigger point injections that Dr. Whatley performed on her costochondritis beneficial and has decreased her pain significantly in that region. 4. I encouraged the patient to be as active as possible, trying to find a water aerobic location. She has gained significant weight since our last visit, she was at 212 in October. Per our report today, two months later she is at 231. She had been down as low as 202. The patient does report going to see a weight management as she is unsure of the location or doctor's name. Time spent with the patient in consultation, reviewing pertinent imaging, reviewing recent studies, clinical notes and physician reports, physical examination and correlation of physical findings and medical documentation to determine possible treatment options 18 minutes. Time spent and preparation for appointment reviewing prescription monitoring system reports, reviewing previous records and proposed treatment options, reviewing current medications 5 minutes. Time spent preparing and sending electronic prescriptions with collaborating physician, Dr. Charan Whatley and documentation of visit and plan of treatment 5 minutes. Total time spent 28 minutes. BYRON Garcia/[place] <ELECTRONICALLY SIGNED> By: Kandice Soares 01/04/2130 09 49 Kandice Soares /nt
== END ==
LOC: PAIN 06:58
PROVIDERS: ATTEND Clinical Nurse Specialist Adult Health
DX: M25.551 Pain in right hip (principal); M54.5 Low back pain; G89.29 Other chronic pain; M19.90 Unspecified osteoarthritis, unspecified site; F32.9 Major depressive disorder, single episode, unspecified; Z79.891 Long term (current) use of opiate analgesic; Z79.899 Other long term (current) drug therapy

== ENCOUNTER → 2021-03-02 | Outpatient (CLI) | payer OTHER | LOC: TELEPC 10:35 → PAIN 12:42 | PROVIDERS: ATTEND Anesthesiology Pain Medicine | DX: M94.0 Chondrocostal junction syndrome [Tietze] (principal); F32.9 Major depressive disorder, single episode, unspecified; M25.551 Pain in right hip; Z79.899 Other long term (current) drug therapy; Z79.891 Long term (current) use of opiate analgesic ==

== ENCOUNTER → 2021-03-30 | Outpatient (CLI) | payer OTHER ==
[~2021-03-30] VITALS: Ht 154.9 cm; Wt 98.4 kg
[~2021-03-30] MED LIST changes: +EPIPEN0.3 MG/0.1 IM
[2021-03-30 10:03] VITALS: BP 143/90
--- NOTE | 2021-03-30 10:08 | NUR ---
Pain Clinic Assessment: 1. History of Osteoarthritis: BACK JOINTS RIGHT HAND History of Rheumatoid Arthritis: NONE 2. Height: 5 ft. 1 in. 154.9 cm. Weight: 217.0 lb. oz. 98.431 kg. Patient's BMI: 41.0 3. Vital Signs: BP: 143/90 Pulse: 94 Resp: 16 Temp: 02 Sat: 100 ECG Mon: 4. Pain Intensity: 6 5. Fall Risk: Dizziness: N Needs help standing or walking: N Fallen in the last 3 months: N Fall risk comments: FELL 2 WEEKS AGO ON ICE. DID NOT GO TO ER OR ANY DOC 6. Patient on Blood Thinner: None 7. History of Hypertension: Y 8. Opioid Therapy greater than 6 weeks: Y Opiate Contract Signed: 12/04/16 9. Risk Assessment Tool Provided: LOW-1 10. Functional Assessment Tool: 11. Recreational Drug Use: Never Drug Type: Tobacco Use: Former Smoker Tobacco Type: Amount or Packs/day: How Many Years: Alcohol Use: Yes Frequency: Quant:
== END ==
LOC: PAIN 08:56
PROVIDERS: ATTEND Anesthesiology Pain Medicine
DX: M94.0 Chondrocostal junction syndrome [Tietze] (principal); F32.9 Major depressive disorder, single episode, unspecified; M25.551 Pain in right hip; M54.5 Low back pain; G89.29 Other chronic pain; Z86.73 Personal history of transient ischemic attack (TIA), and cerebral infarction without residual deficits; Z79.899 Other long term (current) drug therapy; Z79.891 Long term (current) use of opiate analgesic

== ENCOUNTER → 2021-05-25 | Outpatient (CLI) | payer OTHER ==
[~2021-05-25] VITALS: Ht 154.9 cm; Wt 99.2 kg
[~2021-05-25] MED LIST changes: +OZEMPIC0.25 MG/0. SUBQ; +ROXICODONE15 MG PO
[2021-05-25 09:22] VITALS: BP 140/79
--- NOTE | 2021-05-25 09:30 | NUR ---
Pain Clinic Assessment: 1. History of Osteoarthritis: BACK JOINTS RIGHT HAND History of Rheumatoid Arthritis: NONE 2. Height: 5 ft. 1 in. 154.9 cm. Weight: 218.6 lb. oz. 99.156 kg. Patient's BMI: 41.3 3. Vital Signs: BP: 140/79 Pulse: 80 Resp: 18 Temp: 02 Sat: 98 ECG Mon: 4. Pain Intensity: 7 5. Fall Risk: Dizziness: Needs help standing or walking: Fallen in the last 3 months: Fall risk comments: FELL 2 WEEKS AGO ON ICE. DID NOT GO TO ER OR ANY DOC 6. Patient on Blood Thinner: None 7. History of Hypertension: Y 8. Opioid Therapy greater than 6 weeks: Y Opiate Contract Signed: 12/04/16 9. Risk Assessment Tool Provided: LOW-1 10. Functional Assessment Tool: 11. Recreational Drug Use: Never Drug Type: Tobacco Use: Former Smoker Tobacco Type: Cigarettes Amount or Packs/day: How Many Years: Alcohol Use: Yes Frequency: Weekly Quant: WINE
== END ==
LOC: PAIN 06:56
PROVIDERS: ATTEND Anesthesiology Pain Medicine
DX: G89.29 Other chronic pain (principal); M54.50 Low back pain, unspecified; M25.552 Pain in left hip; F34.89 Other specified persistent mood disorders; D51.0 Vitamin B12 deficiency anemia due to intrinsic factor deficiency; I10 Essential (primary) hypertension; K21.9 Gastro-esophageal reflux disease without esophagitis; Z88.8 Allergy status to other drugs, medicaments and biological substances; Z86.73 Personal history of transient ischemic attack (TIA), and cerebral infarction without residual deficits; Z79.899 Other long term (current) drug therapy

== ENCOUNTER → 2021-07-25 | Outpatient (CLI) | payer MEDICARE, OTHER ==
[~2021-07-25] VITALS: Ht 154.9 cm; Wt 95.3 kg
[~2021-07-25] MED LIST changes: +OXYCODONE HCL10 MG PO; +OZEMPIC1 MG/0.71 SUBQ
[2021-07-25 08:14] VITALS: BP 123/88
--- NOTE | 2021-07-25 08:22 | NUR ---
Pain Clinic Assessment: 1. History of Osteoarthritis: BACK JOINTS RIGHT HAND History of Rheumatoid Arthritis: NONE 2. Height: 5 ft. 1 in. 154.9 cm. Weight: 210.2 lb. oz. 95.346 kg. Patient's BMI: 39.7 3. Vital Signs: BP: 123/88 Pulse: 100 Resp: 16 Temp: 02 Sat: 100 ECG Mon: 4. Pain Intensity: 7 5. Fall Risk: Dizziness: N Needs help standing or walking: N Fallen in the last 3 months: N Fall risk comments: NO CONCERNS NOTED 6. Patient on Blood Thinner: None 7. History of Hypertension: Y 8. Opioid Therapy greater than 6 weeks: Y Opiate Contract Signed: 12/04/16 9. Risk Assessment Tool Provided: LOW-1 10. Functional Assessment Tool: 11. Recreational Drug Use: Never Drug Type: Tobacco Use: Former Smoker Tobacco Type: Amount or Packs/day: How Many Years: Alcohol Use: No Frequency: Quant:
== END ==
LOC: PAIN 07:32
PROVIDERS: ATTEND Anesthesiology Pain Medicine
DX: G89.29 Other chronic pain (principal); M54.16 Radiculopathy, lumbar region; M25.551 Pain in right hip; D51.0 Vitamin B12 deficiency anemia due to intrinsic factor deficiency; M54.50 Low back pain, unspecified; I10 Essential (primary) hypertension; K21.9 Gastro-esophageal reflux disease without esophagitis; F34.89 Other specified persistent mood disorders; Z88.8 Allergy status to other drugs, medicaments and biological substances; Z87.891 Personal history of nicotine dependence; Z79.899 Other long term (current) drug therapy